=== PATIENT | male | born 1955 | race Caucasian/White ===

== ENCOUNTER → 2018-08-08 18:59 | Outpatient (CLI) | payer MEDICAID, SELFPAY ==
[2018-08-08 19:28] LABS: Basophils # 0.1 K/mm3 (0-0.2); Basophils % 0.6 % (0.1-2.0); Eosinophils # 0.8 K/mm3 (0.0-0.4); Eosinophils % 10.3 % (0.1-12.0); Hematocrit 49.8 % (42.0-52.0); Hemoglobin 15.7 g/dL (14.1-18.0); Lymphocytes # 1.9 K/mm3 (0.7-4.5); Lymphocytes % 23.5 % (10-50); Mean Corpuscular HGB Conc 31.7 g/dL (31.8-35.4); Mean Corpuscular Hemoglobin 29.7 pg (27.0-31.2); Mean Corpuscular Volume 93.8 fl (80-94); Mean Platelet Volume 7.9 fl (7.4-10.4); Monocytes # 0.5 K/mm3 (0.1-1.0); Monocytes % 5.7 % (1.7-9.3); Neutrophils # 4.8 K/mm3 (1.8-7.8); Neutrophils % 59.9 % (37.0-80.0); Platelet Count 374 K/mm3 (142-424); Red Cell Distribution Width 12.6 % (11.5-17.5); White Blood Count 8.1 K/mm3 (4.8-10.8)
[2018-08-08 20:03] LABS: Alanine Aminotransferase 33 U/L (12-78); Albumin Level 4.2 gm/dL (3.4-5.0); Albumin/Globulin Ratio 1.4 (1.1-1.8); Alkaline Phosphatase 89 U/L (46-116); Anion Gap 12.4 mEq/L (5-15); Aspartate Amino Transferase 14 U/L (15-37); Bilirubin,Total 0.3 mg/dL (0.2-1.0); Blood Urea Nitrogen 9 mg/dL (7-18); Calcium 9.5 mg/dL (8.5-10.1); Carbon Dioxide 30 mmol/L (21.0-32.0); Chloride 104 mmol/L (98-107); Chol/HDL Ratio 2.7 (1-3.5); Cholesterol 130 mg/dL (140-200); Estimated Glomerular Filt Rate 75 ml/min (>60); GFR (African American) 91 ML/MIN (>60); Glucose 104 mg/dL (74-106); HDL Cholesterol 48 mg/dL (27-67); LDL Cholesterol 67 mg/dL (0-130); Potassium 4.4 mmoL/L (3.5-5.1); Sodium 142 mmol/L (136-145); T4 (Thyroxine) 7.4 ug/dl (4.7-13.3); Total Protein,Serum 7.2 gm/dL (6.4-8.2); Triglycerides 74 mg/dL (30-200); VLDL Cholesterol 15 mg/dL (0-40)
[2018-08-10 10:56] LABS: Vitamin D 25 Hydroxy 23.8 ng/mL (30.0-100.0)
[2018-08-10 10:57] LABS: PSA, Free 0.67 ng/mL; Prostate Specific Ag 3.5 ng/mL (0.0-4.0)
== END ==
PROVIDERS: Visit Provider Physician Assistant
DX: R13.10 Dysphagia, unspecified (principal); Z76.89 Persons encountering health services in other specified circumstances; E55.9 Vitamin D deficiency, unspecified
CPT/HCPCS: 80053; 80061; 82652; 84153; 84154; 84436; 84443; 85025

== ENCOUNTER → 2018-08-17 08:30 | Outpatient (CLI) | payer MEDICAID, SELFPAY ==
--- NOTE | 2018-08-17 08:34 | FL_ITS ---
FL upper GI esophagus w/air HISTORY: Dysphagia ITS.REASON: upper GI/ barium swallow ORDERING PHYSICIAN: Nico Medina MD PATIENT AGE: 63 years Comparison: None FINDINGS: Prominent anterior osteophyte at C4-C5 causing indentation upon the posterior aspect of the esophagus at the level which could result in dysphagia. No evidence of hiatal hernia. The stomach, and duodenum have an unremarkable appearance. There is no evidence of hiatal hernia. No ulcer or mass evident. No mucosal abnormalities apparent. There is normal peristalsis. The duodenal C-loop is nondisplaced. FLUOROSCOPY TIME : 1 minute and 58 seconds. IMPRESSION: 1. Prominent anterior osteophytes at C4-C5 causing some indentation on the posterior aspect of the esophagus. 2. Otherwise negative upper GI
== END ==
PROVIDERS: PCP Physician Assistant; Visit Provider Surgery
DX: R13.10 Dysphagia, unspecified (principal)
CPT/HCPCS: 74241

== ENCOUNTER 2018-10-24 09:16 | Observation (INO) ==
--- NOTE | 2018-10-24 09:37 | Emergency Department Note ---
ED Disposition Clinical Impression: Schatzki's ring, Gastric polyp, Hiatal hernia, Insomnia, Tobacco use disorder, Acute cholecystitis, RUQ pain Disposition: Still a Patient Condition on Discharge: Fair Referrals: Josselin Newberry PA [Primary Care Provider] - - Critical Care Critical Care Time: No Attestation: On , the high probability of a clinically significant, sudden or life threatening deterioration of the following system(s) required my full and direct attention, intervention and personal management. The time I documented below is in addition to time spent performing reported procedures but includes the following listed in this critical care notation. Medical Decision Making - Medical Records Medical records reviewed: Yes: I reviewed the patient's medical records. - Khari Inquiry Pt receiving controlled substance: No Khari was queried for this patient: No Vital Signs: 10/24/18 09:16 10/24/18 10:14 10/24/18 11:00 Temperature 97.8 F Temperature Source Oral Pulse Rate [Right Radial] 72 74 73 Respiratory Rate 24 20 Blood Pressure [Right Arm] 163/83 H 163/110 H Blood Pressure Mean [Right Arm] 109 127 Blood Pressure Source [Right Arm] Automatic Cuff Automatic Cuff Blood Pressure Position [Right Arm] Sitting Supine 02 Sat by Pulse Oximetry 100 96 97 Oxygen Delivery Method Room Air Room Air Room Air 10/24/18 11:42 Temperature Temperature Source Pulse Rate [Right Radial] 81 Respiratory Rate Blood Pressure [Right Arm] 159/96 H Blood Pressure Mean [Right Arm] 117 Blood Pressure Source [Right Arm] Automatic Cuff Blood Pressure Position [Right Arm] 02 Sat by Pulse Oximetry 98 Oxygen Delivery Method Room Air - Lab Data Lab Results 10/24/18 09:25: Sodium 139, Potassium 3.4 L, Chloride 101, Carbon Dioxide 29, Anion Gap 12.4, BUN 13, Creatinine 1.15, Estimated Creat Clear 73, Estimated GFR 64, Est GFR ( Amer) 77, Glucose 190 H, Calcium 9.2, Total Bilirubin 0.5, AST 19, ALT 47, Alkaline Phosphatase 115, Total Creatine Kinase 73, CK-MB (CK-2) 1.2, CK-MB (CK-2) Rel Index 1.6, Troponin I < 0.02, Total Protein 7.4, Albumin 4.1, Globulin 3.3 H, Albumin/Globulin Ratio 1.2, Amylase 57, Lipase 148 10/24/18 09:25: WBC 13.9 H, RBC 4.93, Hgb 14.7, Hct 45.8, MCV 92.8, MCH 29.8, MCHC 32.2, RDW 12.3, Plt Count 307, MPV 7.0 L, Neut % (Auto) 84.9 H, Lymph % (Auto) 9.6 L, [place] % (Auto) 3.7, Eos % (Auto) 1.6, Baso % (Auto) 0.3, Neut # (Auto) 11.8 H, Lymph # (Auto) 1.3, [place] # (Auto) 0.5, Eos # (Auto) 0.2, Baso # (Auto) 0.0 10/24/18 10:15: Lactate 3.1 H Result diagrams: 10/24/18 09:25 10/24/18 09:25 Orders (Tests/Meds): ED MEDICATIONS Discontinued Medications Generic Name Dose Route Start Last Admin Trade Name Freq PRN Reason Stop Dose Admin Diatrizoate Meglum/Diatrizoate Sod 30 ml 10/24/18 09:29 10/24/18 09:51 Gastrografin 66%-10% 30ml PO 10/24/18 09:30 30 ml ONCE ONE Administration Famotidine 20 mg 10/24/18 09:29 10/24/18 09:38 Pepcid 20mg/2ml Vial IV 10/24/18 09:30 20 mg ONCE ONE Administration Ertapenem 1 gm/ Sodium 50 mls @ 100 mls/hr 10/24/18 11:25 10/24/18 11:34 Chloride IV 10/24/18 11:26 100 mls/hr ONCE ONE Administration Protocol Ketorolac Tromethamine 30 mg 10/24/18 09:30 10/24/18 09:38 Toradol 30mg/Ml Vial IV 10/24/18 09:31 30 mg ONCE ONE Administration Ondansetron HCl 4 mg 10/24/18 09:30 10/24/18 09:39 Zofran 4mg/2ml Vial IV 10/24/18 09:31 4 mg ONCE ONE Administration Potassium Chloride 40 meq 10/24/18 10:43 10/24/18 11:01 Klor-Con 20meq Tablet PO 10/24/18 10:44 40 meq ONCE ONE Administration ORDERS Category Date Time Status Drug Screen,Urine Stat Lab 10/24/18 09:27 Ordered Urinalysis and Microscopic Stat Lab 10/24/18 09:27 Ordered Blood Culture Stat Micro 10/24/18 10:15 Received - Radiology Data #1 Image(s): Chest Image Reviewed: Yes I reviewed the patient's radiology image Preliminary Findings: Normal/NAD - CT Data CT Scan: Abdomen, Pelvis Time Received: 11:[address] Reviewed: Yes: I have viewed the radiologist's interpretation Preliminary Findings: Abnormal Findings Narrative: IMPRESSION: 1. Suspect gallbladder sludge with possible cholelithiasis. Gas density noted in the fundus of the gallbladder suspicious for gas within a gallstone. Consider ultrasound for confirmation. 2. Colonic diverticulosis. No evidence of diverticulitis. - ECG Data Tracing #1 Normal sinus rhythm, baseline artifact with sagging of the ST segment in the inferior leads with T wave inversion. Fusion beats in the lateral leads no old EKG for comparison. ECG initial impression date: 10/24/18 ECG initial impression time: 09:20 Medical Decision Narrative: IMPRESSION: 1. Suspect gallbladder sludge with possible cholelithiasis. Gas density noted in the fundus of the gallbladder suspicious for gas within a gallstone. Consider ultrasound for confirmation. 2. Colonic diverticulosis. No evidence of diverticulitis. She did have elevated white count of [address] scan of the gallbladder sludge and possible Kelly lithiasis. I spoke with Dr. Merritt who agreed to see the patient in inpatient consultation. I spoke with Dr. Yanes who agreed to admit the patient for IV fluids IV antibiotics and supportive care. The patient was agreeable for admission. Abdominal Pain HPI - General Chief Complaint: Chest Pain Stated Complaint: chest pain Time Seen by Provider: 10/24/18 09:17 Mode of Arrival: Family Vehicle Limitations: No Limitations Description of Symptoms (Recalled from ER Triage Doc. by RN): pt c/o left lower chest pain that started around 0600 this morning. pt states the pain feels like bloating and is a 7/10. pt states he took 2 lortabs for the pain but no relief. - History of Present Illness HPI narrative: 63 years old male with history of esophageal ring that requires dilatation, tobacco addiction, asthma, insomnia and depression. Today at 6 AM the patient developed right upper quadrant sharp pain associated with nausea, he attempted to drink some soda but he vomited twice on the way to the hospital. The pain is sharp in character rated 6/10 no precipitating or relieving factor. He attempted to use Lortab from prior prescriptions with no relief. He denies having chest pain, shortness of breath, or palpitations. He denies having hemoptysis hematemesis coffee-ground emesis melanotic stool or bleeding per rectum. He denies having flank pain dysuria hematuria or frequency. The findings of his most recent EGD 09/06/2018: Findings:: Gastroesophageal junction at 42 cm Mild stricture/early Schatzki ring at gastroesophageal junction Small sliding hiatal hernia Patchy gastritis Gastric body polyp complaint: abdominal pain Onset (ago): hour(s) (3 hours.) Consistency: constant Location: RUQ Severity: moderate Severity scale (1-10): 6 Quality: stabbing, sharp Radiation: epigastric Relieving factors: nothing Exacerbating factors: eating Associated symptoms: nausea, vomiting Treatments prior to arrival: prescription analgesics - Related Data Home Medications Medication Instructions Recorded Confirmed doxepin 100 mg capsule 300 mg PO QHS cap 08/08/18 10/24/18 Fluticasone/Vilanterol [Breo 1 inh INHALATION DAILY 09/05/18 10/24/18 Ellipta] esomeprazole magnesium 40 mg 40 mg PO DAILY 09/17/18 10/24/18 capsule,delayed release ranitidine 75 mg tablet 75 mg PO BID PRN 09/17/18 10/24/18 Previous Rx's Medication Instructions Recorded albuterol sulfate HFA 90 2 puff INHALATION Q6H PRN #18 g 08/08/18 mcg/actuation aerosol inhaler Allergies Allergy/AdvReac Type Severity Reaction Status Date / Time No Known Allergies Allergy Verified 10/24/18 09:29 [facility] History - Hepatitis A Screen Drug use history?: No High risk sexual behaviors?: No History of sexually transmitted infection?: No Currently employed?: No Childcare worker?: No Do you have indoor plumbing?: Yes Do you have electricity?: Yes Attestation statement:: This patient has been screened for Hepatitis A risk factors. I have reviewed the patient's past medical history: Yes Medical History: Reports:: Asthma, Depression, Lung Disease Denies:: Cancer, Chronic Obstructive Pulmonary Disease (COPD), Diabetes Mellitus Type 1, Diabetes Mellitus Type 2, Hypertension, Internal Pacemaker, MRSA, Seizures Other Surgeries: Yes: No Previous Surgery, Colonoscopy. No: Pacemaker Amputation: No Fractures: No - Social History Smoking Status: Current every day smoker Tobacco Type: cigarettes # Packs/Day (cigarettes): 1 Alcohol Intake: never Alcohol Intake Frequency:: holidays/special occasions only Substance Use Type: denies use Occupational Status: retired - Psychiatric History Expresses thoughts of harming self/others: None Suicide Plan Description: No Plan Pschychiatric History:: Reports:: Depression Family Hx:: Asthma ROS Obtained: Yes All systems reviewed & no additional complaints Physical Exam - General General appearance: alert, in no apparent distress - Head Head exam: atraumatic, normocephalic, normal inspection - Eye Eye exam: Present: normal appearance, PERRL, EOMI. Absent: scleral icterus, nystagmus - ENT ENT exam: Present: normal exam, normal oropharynx, mucous membranes moist, TM's normal bilaterally, normal external ear exam - Neck Neck exam: Present: normal inspection, full ROM, trachea midline. Absent: meningismus, lymphadenopathy - Chest Chest inspection: Present: normal inspection, symmetric chest wall rise. Absent: tenderness - Respiratory Respiratory exam: Present: normal lung sounds bilaterally. Absent: respiratory distress, wheezes - Cardiovascular Cardiovascular exam: Present: regular rate, normal rhythm. Absent: JVD - Abdominal Exam Abdominal exam: Present: soft, normal bowel sounds. Absent: distention, tenderness, guarding, rebound, rigidity, Garrido's sign, tenderness at McBurney's Point - exam: Present: normal inspection, normal testicular lie, circumcised. Absent: testicular tenderness, urethral discharge, scrotal swelling - Extremities Exam Extremities exam: Present: normal inspection, full ROM, normal capillary refill. Absent: calf tenderness - Back Exam Back exam: Present: normal inspection. Absent: tenderness, CVA tenderness (R), CVA tenderness (L), paraspinal tenderness, vertebral tenderness - Neurological Exam Neurological exam: Present: alert, oriented X3, CN II-XII intact, motor sensory deficit, reflexes normal - Psychiatric Psychiatric exam: Present: normal affect, normal mood - Skin Skin exam: Present: warm, dry, intact, normal color - Lymphatic Lymphatic Findings: no adenopathy
[2018-10-24 10:11] LABS: Alanine Aminotransferase 47 U/L (12-78); Albumin Level 4.1 gm/dL (3.4-5.0); Albumin/Globulin Ratio 1.2 (1.1-1.8); Alkaline Phosphatase 115 U/L (46-116); Amylase 57 U/L (25-115); Anion Gap 12.4 mEq/L (5-15); Aspartate Amino Transferase 19 U/L (15-37); Bilirubin,Total 0.5 mg/dL (0.2-1.0); Blood Urea Nitrogen 13 mg/dL (7-18); Calcium 9.2 mg/dL (8.5-10.1); Carbon Dioxide 29 mmol/L (21.0-32.0); Chloride 101 mmol/L (98-107); Creatine Kinase 73 U/L (39-308); Globulin 3.3 gm/dl (1.3-3.2); Glucose 190 mg/dL (74-106); Lipase 148 u/L (73-393); Potassium 3.4 mmoL/L (3.5-5.1); Sodium 139 mmol/L (136-145); Total Protein,Serum 7.4 gm/dL (6.4-8.2)
[2018-10-24 10:44] LABS: Basophils % 0.3 % (0.1-2.0); Eosinophils # 0.2 K/mm3 (0.0-0.4); Eosinophils % 1.6 % (0.1-12.0); Hematocrit 45.8 % (42.0-52.0); Hemoglobin 14.7 g/dL (14.1-18.0); Lymphocytes # 1.3 K/mm3 (0.7-4.5); Lymphocytes % 9.6 % (10-50); Mean Corpuscular HGB Conc 32.2 g/dL (31.8-35.4); Mean Corpuscular Hemoglobin 29.8 pg (27.0-31.2); Mean Corpuscular Volume 92.8 fl (80-94); Monocytes # 0.5 K/mm3 (0.1-1.0); Monocytes % 3.7 % (1.7-9.3); Neutrophils # 11.8 K/mm3 (1.8-7.8); Neutrophils % 84.9 % (37.0-80.0); Platelet Count 307 K/mm3 (142-424); Red Blood Count 4.93 M/mm3 (4.60-6.20); Red Cell Distribution Width 12.3 % (11.5-17.5); White Blood Count 13.9 K/mm3 (4.8-10.8)
[2018-10-24 13:06] LABS: Microscopic, Urine URINE MICROSCOPIC (MICROSCOPIC)
[2018-10-24 13:07] LABS: Appearance,Urine CLEAR (Clear); Bilirubin,Urine Negative (Negative); Blood, Urine TRACE-I (Negative); Color,Urine YELLOW (Yellow); Glucose,Urine (UA) Negative (Negative); Ketones,Urine Negative (Negative); Leukocyte Esterase,Urine Negative (Negative); PH,Urine 6.5 (5.0-8.5); Protein,Urine TRACE (Negative); Specific Gravity, Urine <= 1.005 (1.005-1.030); Urobilinogen,Urine 0.2 EU/dl (0.2)
[2018-10-24 13:32] LABS: Bacteria,Urine Trace /lpf; Squamous Epithelial Cell,Urine Occasional #/hpf (0-5); WBC,Urine Occasional #/hpf (0-3)
--- NOTE | 2018-10-24 15:06 | Consult Report ---
*Admission Date: 10/24/18 *Chief complaint: Right upper quadrant pain *History of present illness: This is a 63-year-old gentleman who presented to the emergency department earlier today with right upper quadrant abdominal pain. NOTE: He does have a history of Schatzki ring and Helicobacter pylori. He has been treated for Helicobacter pylori within the last month. Discussions regarding possible need for dilatation of Schatzki ring are ongoing. He continues medical therapy for reflux. See forwarded copy of HPI from emergency department evaluation below: 63 years old male with history of esophageal ring that requires dilatation, tobacco addiction, asthma, insomnia and depression. Today at 6 AM the patient developed right upper quadrant sharp pain associated with nausea, he attempted to drink some soda but he vomited twice on the way to the hospital. The pain is sharp in character rated 6/10 no precipitating or relieving factor. He attempted to use Lortab from prior prescriptions with no relief. He denies having chest pain, shortness of breath, or palpitations. He denies having hemop tysis hematemesis coffee-ground emesis melanotic stool or bleeding per rectum. He denies having flank pain dysuria hematuria or frequency. Review of Systems - Constitutional Denies chills - Eyes Denies change in vision - ENT Denies change in voice - *Cardiovascular Denies chest pain - *Respiratory Denies cough - *Gastrointestinal Reports abdominal pain, Reports nausea, Denies bright, red blood in stools, Denies black, tarry stools - *Genitourinary Denies difficulty urinating - *Musculoskeletal Denies abnormal walking - Integumentary/Breasts Denies bleeding lesions - *Neurologic Denies abnormal movements - Psychiatric Reports depression, Denies anxiety - Endocrine Denies cold intolerance - Hematologic/Lymphatic Denies easy bleeding H History Medical History: Reports:: Asthma, Depression, Lung Disease Denies:: Cancer, Chronic Obstructive Pulmonary Disease (COPD), Diabetes Mellitus Type 1, Diabetes Mellitus Type 2, Hypertension, Internal Pacemaker, MRSA, Seizures Other Surgeries: Yes: No Previous Surgery, Colonoscopy. No: Pacemaker Amputation: No Fractures: No - *Social History Smoking Status: Current every day smoker Tobacco Type: cigarettes # Packs/Day (cigarettes): 1 Alcohol Intake: never Alcohol Intake Frequency:: holidays/special occasions only Substance Use Type: denies use *Occupational Status:: retired *Travel in the last 8 weeks: None - Psychiatric History Expresses thoughts of harming self/others: None Suicide Plan Description: No Plan Pschychiatric History:: Reports:: Depression Family Hx:: Asthma Meds Home Medications Medication Instructions Recorded Confirmed Type albuterol sulfate HFA 90 2 puff INHALATION Q6H PRN #18 g 08/08/18 10/24/18 Rx mcg/actuation aerosol inhaler doxepin 100 mg capsule 300 mg PO QHS cap 08/08/18 10/24/18 History Fluticasone/Vilanterol [Breo 1 inh INHALATION DAILY 09/05/18 10/24/18 History Ellipta] esomeprazole magnesium 40 mg 40 mg PO DAILY 09/17/18 10/24/18 History capsule,delayed release ranitidine 75 mg tablet 75 mg PO BID PRN 09/17/18 10/24/18 History Allergies Allergy/AdvReac Type Severity Reaction Status Date / Time No Known Allergies Allergy Verified 10/24/18 09:29 Exam Vital signs and Labs for Last 24 Hours: Temp Pulse Resp BP Pulse Ox 98.9 F 91 H 20 152/48 H 97 10/24/18 12:45 10/24/18 12:45 10/24/18 12:45 10/24/18 12:45 10/24/18 12:18 Laboratory Results - last 24 hr 10/24/18 09:25: Sodium 139, Potassium 3.4 L, Chloride 101, Carbon Dioxide 29, Anion Gap 12.4, BUN 13, Creatinine 1.15, Estimated Creat Clear 73, Estimated GFR 64, Est GFR ( Amer) 77, Glucose 190 H, Calcium 9.2, Total Bilirubin 0.5, AST 19, ALT 47, Alkaline Phosphatase 115, Total Creatine Kinase 73, CK-MB (CK-2) 1.2, CK-MB (CK-2) Rel Index 1.6, Troponin I < 0.02, Total Protein 7.4, Albumin 4.1, Globulin 3.3 H, Albumin/Globulin Ratio 1.2, Amylase 57, Lipase 148 10/24/18 09:25: WBC 13.9 H, RBC 4.93, Hgb 14.7, Hct 45.8, MCV 92.8, MCH 29.8, MCHC 32.2, RDW 12.3, Plt Count 307, MPV 7.0 L, Neut % (Auto) 84.9 H, Lymph % (Auto) 9.6 L, [place] % (Auto) 3.7, Eos % (Auto) 1.6, Baso % (Auto) 0.3, Neut # (Auto) 11.8 H, Lymph # (Auto) 1.3, [place] # (Auto) 0.5, Eos # (Auto) 0.2, Baso # (Auto) 0.0 10/24/18 10:15: Lactate 3.1 H 10/24/18 12:50: Urine Color Yellow, Urine Appearance Clear, Urine pH 6.5, Ur Specific [place] <= 1.005, Urine Protein Trace, Urine Glucose (UA) Negative, Urine Ketones Negative, Urine Blood Trace-i, Urine Nitrate Negative, Urine Bilirubin Negative, Urine Urobilinogen 0.2, Ur Leukocyte Esterase Negative, Urine RBC 3-5, Urine WBC Occasional, Ur Squamous Epith Cells Occasional, Urine Bacteria Trace I & O for Last 24 hours: Intake & Output 10/22/18 10/23/18 10/24/18 10/25/18 11:59 11:59 11:59 11:59 Intake Total 50 / 50 Balance 50 / 50 Weight 175 lb 171 lb 7 oz Radiology Reports for the Last 24 Hours: CT A/P: MPRESSION: 1. Suspect gallbladder sludge with possible cholelithiasis. Gas density noted in the fundus of the gallbladder suspicious for gas within a gallstone. Consider ultrasound for confirmation. 2. Colonic diverticulosis. No evidence of diverticulitis. - Constitutional no acute distress - *Routine Respiratory Exam Absent: respiratory distress - *Routine Cardiovascular Exam Present: RRR - *Routine Abdominal Exam Present: soft, tenderness Comments: mostly in RUQ and epigastric region Results - Labs 10/24/18 09:25 10/24/18 09:25 Laboratory Results - last 24 hr 10/24/18 09:25: Sodium 139, Potassium 3.4 L, Chloride 101, Carbon Dioxide 29, Anion Gap 12.4, BUN 13, Creatinine 1.15, Estimated Creat Clear 73, Estimated GFR 64, Est GFR ( Amer) 77, Glucose 190 H, Calcium 9.2, Total Bilirubin 0.5, AST 19, ALT 47, Alkaline Phosphatase 115, Total Creatine Kinase 73, CK-MB (CK-2) 1.2, CK-MB (CK-2) Rel Index 1.6, Troponin I < 0.02, Total Protein 7.4, Albumin 4.1, Globulin 3.3 H, Albumin/Globulin Ratio 1.2, Amylase 57, Lipase 148 10/24/18 09:25: WBC 13.9 H, RBC 4.93, Hgb 14.7, Hct 45.8, MCV 92.8, MCH 29.8, MCHC 32.2, RDW 12.3, Plt Count 307, MPV 7.0 L, Neut % (Auto) 84.9 H, Lymph % (Auto) 9.6 L, [place] % (Auto) 3.7, Eos % (Auto) 1.6, Baso % (Auto) 0.3, Neut # (Auto) 11.8 H, Lymph # (Auto) 1.3, [place] # (Auto) 0.5, Eos # (Auto) 0.2, Baso # (Auto) 0.0 10/24/18 10:15: Lactate 3.1 H 10/24/18 12:50: Urine Color Yellow, Urine Appearance Clear, Urine pH 6.5, Ur Specific [place] <= 1.005, Urine Protein Trace, Urine Glucose (UA) Negative, Urine Ketones Negative, Urine Blood Trace-i, Urine Nitrate Negative, Urine Bilirubin Negative, Urine Urobilinogen 0.2, Ur Leukocyte Esterase Negative, Urine RBC 3-5, Urine WBC Occasional, Ur Squamous Epith Cells Occasional, Urine Bacteria Trace - Imaging CT scan - abdomen: report reviewed, image reviewed CT scan - pelvis: report reviewed, image reviewed Assessment and Plan (1) Acute cholecystitis Current visit: Yes Status: Acute Category: Medical Code(s): K81.0 - Acute cholecystitis IV abx Serial exams Likely cholecystectomy tomorrow
--- NOTE | 2018-10-24 21:26 | History & Physical Report ---
*Admission Date: 10/24/18 *Chief complaint: abd pain *History of present illness: this wm presented to the ed -3 years old male with history of esophageal ring that requires dilatation, tobacco addiction, asthma, insomnia and depression. Today at 6 AM the patient developed right upper quadrant sharp pain associated with nausea, he attempted to drink some soda but he vomited twice on the way to the hospital. The pain is sharp in character rated 6/10 no precipitating or relieving factor. He attempted to use Lortab from prior prescriptions with no relief. He denies having chest pain, shortness of breath, or palpitations. He denies having hemoptysis hematemesis coffee-ground emesis melanotic stool or bleeding per rectum. He denies having flank pain dysuria hematuria or frequency. [facility] History I have reviewed the patient's past medical history: Yes Medical History: Reports:: Asthma, Depression, Lung Disease Denies:: Cancer, Chronic Obstructive Pulmonary Disease (COPD), Diabetes Mellitus Type 1, Diabetes Mellitus Type 2, Hypertension, Internal Pacemaker, MRSA, Seizures *Have you ever received a pneumonia vaccine?: No *Have you received a flu vaccine this season?: No Other Surgeries: Yes: No Previous Surgery, Colonoscopy. No: Pacemaker Amputation: No Fractures: No - *Social History Educational Level: Completed High School Smoking Status: Current some day smoker Tobacco Type: cigarettes # Packs/Day (cigarettes): 1 Alcohol Intake: current Alcohol Intake Frequency:: a few times a week Substance Use Type: denies use *Occupational Status:: retired Housing: house *Travel in the last 8 weeks: None - Psychiatric History Expresses thoughts of harming self/others: None Suicide Plan Description: No Plan Pschychiatric History:: Reports:: Depression Family Hx:: Asthma Review of Systems - Review of Systems Review of systems:: pertinent systems reviewed and negative unless documented below - Constitutional Denies fever(s) - Eyes Denies change in vision - ENT Denies sore throat - *Cardiovascular Denies chest pain at rest - *Respiratory Denies cough - *Gastrointestinal Reports abdominal pain, Reports nausea, Reports vomiting - *Genitourinary Denies blood in urine - *Musculoskeletal Denies joint pain - Integumentary/Breasts Denies rash - *Neurologic Denies abnormal walking, Denies abnormal movements - Psychiatric Denies anxiety Meds Home Medications Medication Instructions Recorded Confirmed Type albuterol sulfate HFA 90 2 puff INHALATION Q6H PRN #18 g 08/08/18 10/24/18 Rx mcg/actuation aerosol inhaler doxepin 100 mg capsule 300 mg PO QHS cap 08/08/18 10/24/18 History Fluticasone/Vilanterol [Breo 1 inh INHALATION DAILY 09/05/18 10/24/18 History Ellipta] esomeprazole magnesium 40 mg 40 mg PO DAILY 09/17/18 10/24/18 History capsule,delayed release ranitidine 75 mg tablet 75 mg PO BID PRN 09/17/18 10/24/18 History Allergies Allergy/AdvReac Type Severity Reaction Status Date / Time No Known Allergies Allergy Verified 10/24/18 09:29 Exam Vital signs and Labs for Last 24 Hours: Temp Pulse Resp BP Pulse Ox 98.8 F 91 H 17 134/80 97 10/24/18 20:00 10/24/18 20:00 10/24/18 20:00 10/24/18 20:00 10/24/18 20:00 Laboratory Results - last 24 hr 10/24/18 09:25: Sodium 139, Potassium 3.4 L, Chloride 101, Carbon Dioxide 29, Anion Gap 12.4, BUN 13, Creatinine 1.15, Estimated Creat Clear 73, Estimated GFR 64, Est GFR ( Amer) 77, Glucose 190 H, Calcium 9.2, Total Bilirubin 0.5, AST 19, ALT 47, Alkaline Phosphatase 115, Total Creatine Kinase 73, CK-MB (CK-2) 1.2, CK-MB (CK-2) Rel Index 1.6, Troponin I < 0.02, Total Protein 7.4, Albumin 4.1, Globulin 3.3 H, Albumin/Globulin Ratio 1.2, Amylase 57, Lipase 148 10/24/18 09:25: WBC 13.9 H, RBC 4.93, Hgb 14.7, Hct 45.8, MCV 92.8, MCH 29.8, MCHC 32.2, RDW 12.3, Plt Count 307, MPV 7.0 L, Neut % (Auto) 84.9 H, Lymph % (Auto) 9.6 L, [place] % (Auto) 3.7, Eos % (Auto) 1.6, Baso % (Auto) 0.3, Neut # (Auto) 11.8 H, Lymph # (Auto) 1.3, [place] # (Auto) 0.5, Eos # (Auto) 0.2, Baso # (Auto) 0.0 10/24/18 10:15: Lactate 3.1 H 10/24/18 12:50: Urine Color Yellow, Urine Appearance Clear, Urine pH 6.5, Ur Specific [place] <= 1.005, Urine Protein Trace, Urine Glucose (UA) Negative, Urine Ketones Negative, Urine Blood Trace-i, Urine Nitrate Negative, Urine Bilirubin Negative, Urine Urobilinogen 0.2, Ur Leukocyte Esterase Negative, Urine RBC 3-5, Urine WBC Occasional, Ur Squamous Epith Cells Occasional, Urine Bacteria Trace 10/24/18 14:52: Lactate 1.8 10/24/18 15:06: Troponin I < 0.02 I & O for Last 24 hours: Intake & Output 10/22/18 10/23/18 10/24/18 10/25/18 11:59 11:59 11:59 11:59 Intake Total 760 / 760 Balance 760 / 760 Weight 175 lb 171 lb 7 oz - Constitutional no acute distress - *Routine HEENT Exam Head: Present: normocephalic Eye: Present: EOMI, PERRL. Absent: conjunctival icterus ENT: Present: mucous membranes dry - *Routine Neck Exam Present: supple. Absent: JVD - *Routine Respiratory Exam Present: CTA bilaterally - *Routine Cardiovascular Exam Present: RRR, murmur - *Routine Abdominal Exam Present: soft, tenderness - *Routine Extremities Exam Absent: edema - *Routine Skin Exam Present: intact - *Routine Neurological Exam Present: alert, oriented X3, CN II-XII intact - Routine Psychiatric Exam Present: normal affect Assessment and Plan (1) Acute cholecystitis Current visit: Yes Status: Acute Category: Medical Code(s): K81.0 - Acute cholecystitis (2) Tobacco use disorder Current visit: Yes Status: Acute Category: Medical Code(s): F17.200 - Nicotine dependence, unspecified, uncomplicated (3) COPD (chronic obstructive pulmonary disease) Current visit: Yes Status: Acute Category: Medical Code(s): J44.9 - Chronic obstructive pulmonary disease, unspecified
--- NOTE | 2018-10-25 06:46 | Progress Note ---
Subjective Patient reports: no new complaints (pain/soreness with movement (mostly RUQ and epigastrum)) Exam Vital signs and Labs for Last 24 Hours: Temp Pulse Resp BP Pulse Ox 97.9 F 90 16 116/72 96 10/25/18 04:00 10/25/18 04:00 10/25/18 04:00 10/25/18 04:00 10/25/18 04:00 Laboratory Results - last 24 hr 10/24/18 09:25: Sodium 139, Potassium 3.4 L, Chloride 101, Carbon Dioxide 29, Anion Gap 12.4, BUN 13, Creatinine 1.15, Estimated Creat Clear 73, Estimated GFR 64, Est GFR ( Amer) 77, Glucose 190 H, Calcium 9.2, Total Bilirubin 0.5, AST 19, ALT 47, Alkaline Phosphatase 115, Total Creatine Kinase 73, CK-MB (CK-2) 1.2, CK-MB (CK-2) Rel Index 1.6, Troponin I < 0.02, Total Protein 7.4, Albumin 4.1, Globulin 3.3 H, Albumin/Globulin Ratio 1.2, Amylase 57, Lipase 148 10/24/18 09:25: WBC 13.9 H, RBC 4.93, Hgb 14.7, Hct 45.8, MCV 92.8, MCH 29.8, MCHC 32.2, RDW 12.3, Plt Count 307, MPV 7.0 L, Neut % (Auto) 84.9 H, Lymph % (Auto) 9.6 L, [place] % (Auto) 3.7, Eos % (Auto) 1.6, Baso % (Auto) 0.3, Neut # (Auto) 11.8 H, Lymph # (Auto) 1.3, [place] # (Auto) 0.5, Eos # (Auto) 0.2, Baso # (Auto) 0.0 10/24/18 10:15: Lactate 3.1 H 10/24/18 12:50: Urine Color Yellow, Urine Appearance Clear, Urine pH 6.5, Ur Specific [place] <= 1.005, Urine Protein Trace, Urine Glucose (UA) Negative, Urine Ketones Negative, Urine Blood Trace-i, Urine Nitrate Negative, Urine Bilirubin Negative, Urine Urobilinogen 0.2, Ur Leukocyte Esterase Negative, Urine RBC 3-5, Urine WBC Occasional, Ur Squamous Epith Cells Occasional, Urine Bacteria Trace 10/24/18 14:52: Lactate 1.8 10/24/18 15:06: Troponin I < 0.02 10/24/18 21:07: Troponin I < 0.02 I & O for Last 24 hours: Intake & Output 10/22/18 10/23/18 10/24/18 10/25/18 11:59 11:59 11:59 11:59 Intake Total 860 / 860 Balance 860 / 860 Weight 175 lb 171 lb 7 oz - Constitutional no acute distress - *Routine Respiratory Exam Absent: respiratory distress - *Routine Cardiovascular Exam Present: RRR - *Routine Abdominal Exam Present: soft, tenderness Comments: essentially unchanged Progress Note: A&P (1) Acute cholecystitis Status: Acute Assessment and plan: continue abx as per PCP clear liquids for breakfast (NPO afterwards) cholecystectomy later today Current Visit: Yes
--- NOTE | 2018-10-25 07:35 | Consult Report ---
History of Present Illness Consult date: 10/25/18 Requesting physician: Mitchell Yanes Consult reason: pre-op evaluation Chief complaint: Abd/chest pain Additional Medical History:: 1. Tobacco use A. 2. FH of CAD 3. Situational depression related to 's 10 months ago. 10/2018. History of present illness: 63-year-old white male admitted with known Schatzki's ring for planned dilatation with complaints of right upper quadrant abdominal pain with evaluation revealing gallbladder sludge and gallstones. Cholecystectomy is planned for later today. Cardiology consulted for preop evaluation. Patient's pertinent cardiac risk factors are tobacco use and family history of coronary artery disease in his father at age 60. Patient denies hypertension, hyperlipidemia or diabetes. EKG is sinus and unremarkable. Troponins have returned normal. [facility] History Medical History: Reports:: Asthma, Depression, Lung Disease Denies:: Cancer, Chronic Obstructive Pulmonary Disease (COPD), Diabetes Mellitus Type 1, Diabetes Mellitus Type 2, Hypertension, Internal Pacemaker, MRSA, Seizures *Have you ever received a pneumonia vaccine?: No *Have you received a flu vaccine this season?: No Other Surgeries: Yes: No Previous Surgery, Colonoscopy. No: Pacemaker Amputation: No Fractures: No - *Social History Educational Level: Completed High School Smoking Status: Current some day smoker Tobacco Type: cigarettes # Packs/Day (cigarettes): 1 Alcohol Intake: current Alcohol Intake Frequency:: a few times a week Substance Use Type: denies use *Occupational Status:: retired Housing: house *Travel in the last 8 weeks: None - Psychiatric History Expresses thoughts of harming self/others: None Suicide Plan Description: No Plan Pschychiatric History:: Reports:: Depression Family Hx:: Asthma Meds Home Medications Medication Instructions Recorded Confirmed Type albuterol sulfate HFA 90 2 puff INHALATION Q6H PRN #18 g 08/08/18 10/24/18 Rx mcg/actuation aerosol inhaler doxepin 100 mg capsule 300 mg PO QHS cap 08/08/18 10/24/18 History Fluticasone/Vilanterol [Breo 1 inh INHALATION DAILY 09/05/18 10/24/18 History Ellipta] esomeprazole magnesium 40 mg 40 mg PO DAILY 09/17/18 10/24/18 History capsule,delayed release ranitidine 75 mg tablet 75 mg PO BID PRN 09/17/18 10/24/18 History Allergies Allergy/AdvReac Type Severity Reaction Status Date / Time No Known Allergies Allergy Verified 10/24/18 09:29 Review of Systems - *Cardiovascular Reports chest pain, Denies shortness of breath - *Respiratory Denies shortness of breath, Denies shortness of breath with activity - *Gastrointestinal Reports abdominal pain, Denies vomiting - *Genitourinary Denies blood in urine - *Musculoskeletal Reports joint pain - *Neurologic Denies abnormal walking, Denies abnormal movements Exam Vital signs and Labs for Last 24 Hours: Temp Pulse Resp BP Pulse Ox 97.9 F 90 16 116/72 96 10/25/18 04:00 10/25/18 04:00 10/25/18 04:00 10/25/18 04:00 10/25/18 04:00 Laboratory Results - last 24 hr 10/24/18 09:25: Sodium 139, Potassium 3.4 L, Chloride 101, Carbon Dioxide 29, Anion Gap 12.4, BUN 13, Creatinine 1.15, Estimated Creat Clear 73, Estimated GFR 64, Est GFR ( Amer) 77, Glucose 190 H, Calcium 9.2, Total Bilirubin 0.5, AST 19, ALT 47, Alkaline Phosphatase 115, Total Creatine Kinase 73, CK-MB (CK-2) 1.2, CK-MB (CK-2) Rel Index 1.6, Troponin I < 0.02, Total Protein 7.4, Albumin 4.1, Globulin 3.3 H, Albumin/Globulin Ratio 1.2, Amylase 57, Lipase 148 10/24/18 09:25: WBC 13.9 H, RBC 4.93, Hgb 14.7, Hct 45.8, MCV 92.8, MCH 29.8, MCHC 32.2, RDW 12.3, Plt Count 307, MPV 7.0 L, Neut % (Auto) 84.9 H, Lymph % (Auto) 9.6 L, [place] % (Auto) 3.7, Eos % (Auto) 1.6, Baso % (Auto) 0.3, Neut # (Auto) 11.8 H, Lymph # (Auto) 1.3, [place] # (Auto) 0.5, Eos # (Auto) 0.2, Baso # (Auto) 0.0 10/24/18 10:15: Lactate 3.1 H 10/24/18 12:50: Urine Color Yellow, Urine Appearance Clear, Urine pH 6.5, Ur Specific [place] <= 1.005, Urine Protein Trace, Urine Glucose (UA) Negative, Urine Ketones Negative, Urine Blood Trace-i, Urine Nitrate Negative, Urine Bilirubin Negative, Urine Urobilinogen 0.2, Ur Leukocyte Esterase Negative, Urine RBC 3-5, Urine WBC Occasional, Ur Squamous Epith Cells Occasional, Urine Bacteria Trace 10/24/18 14:52: Lactate 1.8 10/24/18 15:06: Troponin I < 0.02 10/24/18 21:07: Troponin I < 0.02 I & O for Last 24 hours: Intake & Output 10/22/18 10/23/18 10/24/18 10/25/18 11:59 11:59 11:59 11:59 Intake Total 860 / 860 Balance 860 / 860 Weight 175 lb 171 lb 7 oz - *Routine HEENT Exam Head: Present: normocephalic Eye: Present: EOMI, PERRL ENT: Present: mucous membranes moist - *Routine Neck Exam Present: supple. Absent: JVD, carotid bruit - *Routine Respiratory Exam Present: CTA bilaterally. Absent: accessory muscle use, rales, rhonchi, wheezes - *Routine Cardiovascular Exam Present: RRR. Absent: murmur, gallop, rubs - *Routine Abdominal Exam Present: soft. Absent: tenderness, distended, guarding - *Routine Extremities Exam Absent: edema, calf tenderness - *Routine Neurological Exam Present: alert, oriented X3, moving all extremities Assessment and Plan (1) Acute cholecystitis Current visit: Yes Status: Acute Category: Medical Code(s): K81.0 - Acute cholecystitis (2) Tobacco use disorder Current visit: Yes Status: Acute Category: Medical Code(s): F17.200 - Nicotine dependence, unspecified, uncomplicated (3) COPD (chronic obstructive pulmonary disease) Current visit: Yes Status: Acute Category: Medical Code(s): J44.9 - Chronic obstructive pulmonary disease, unspecified - Assessment and plan all Dx Assessment and Plan for all problems:: 1. Echo shows normal LV size and function with mild mitral and tricuspid regurgitation. 2. Pt is asymptomatic from a cardiology standpoint and is a low and acceptable risk from a cardiac standpoint to proceed with cholecystectomy.
[2018-10-25 07:45] LABS: Basophils % 0.2 % (0.1-2.0); Eosinophils # 0.2 K/mm3 (0.0-0.4); Eosinophils % 1.4 % (0.1-12.0); Hematocrit 39.7 % (42.0-52.0); Lymphocytes # 1.6 K/mm3 (0.7-4.5); Lymphocytes % 14.4 % (10-50); Mean Corpuscular HGB Conc 32.9 g/dL (31.8-35.4); Mean Corpuscular Hemoglobin 30.5 pg (27.0-31.2); Mean Corpuscular Volume 92.7 fl (80-94); Mean Platelet Volume 7.1 fl (7.4-10.4); Monocytes # 0.9 K/mm3 (0.1-1.0); Monocytes % 8.2 % (1.7-9.3); Neutrophils # 8.4 K/mm3 (1.8-7.8); Neutrophils % 75.7 % (37.0-80.0); Platelet Count 213 K/mm3 (142-424); Red Blood Count 4.28 M/mm3 (4.60-6.20); Red Cell Distribution Width 12.4 % (11.5-17.5); White Blood Count 11.1 K/mm3 (4.8-10.8)
[2018-10-25 07:59] LABS: Anion Gap 11.4 mEq/L (5-15); Calcium 8.6 mg/dL (8.5-10.1); Potassium 4.4 mmoL/L (3.5-5.1)
--- NOTE | 2018-10-25 08:02 | Pharmacy Consult Notes ---
[facility] VTE Monitoring - Patient Demographics Admission date: 10/24/18 Report Date: 10/25/18 Time: 08:02 Allergies/Adverse Reactions: Patient Allergies No Known Allergies Allergy (Verified 10/24/18 09:29) Height: 1.91 m Weight: 77.763 kg Patient Problems: Current Active Problems Schatzki's ring (Acute) Gastric polyp (Acute) Hiatal hernia (Acute) Insomnia (Acute) Tobacco use disorder (Acute) Acute cholecystitis (Acute) RUQ pain (Acute) COPD (chronic obstructive pulmonary disease) (Acute) - VTE Risk Labs: VTE Related Lab Results Hgb 14.7 g/dL (14.1-18.0) 10/24/18 09:25 Hct 39.7 % (42.0-52.0) L 10/25/18 07:05 Plt Count 213 K/mm3 (142-424) D 10/25/18 07:05 BUN 13 mg/dL (7-18) 10/24/18 09:25 Creatinine 1.15 mg/dL (0.70-1.30) 10/24/18 09:25 Estimated Creat Clear 73 mL/min (50-200) 10/24/18 09:25 Was VTE Risk Assessment Performed: Yes VTE Score: 2 VTE Risk Level: Very Low Risk - Prophylaxis VTE Prophylaxis Ordered?: Yes Types of VTE Prophylaxis: TEDS Knee High Location of Applied Device: Bilateral Lower Extremeties - VTE Diagnosis Confirmed Treatment or plan recommended: Continue Current Treatment
[2018-10-25 08:05] LABS: Hemoglobin 13.1 g/dL (14.1-18.0)
--- NOTE | 2018-10-25 09:03 | Progress Note ---
Internal Medicine - PN: Subj *Date: 10/25/18 *Time: 09:02 Exam Vital signs and Labs for Last 24 Hours: Temp Pulse Resp BP Pulse Ox 98.9 F 63 16 131/62 93 L 10/25/18 08:00 10/25/18 08:00 10/25/18 08:00 10/25/18 08:00 10/25/18 08:00 Laboratory Results - last 24 hr 10/24/18 09:25: Sodium 139, Potassium 3.4 L, Chloride 101, Carbon Dioxide 29, Anion Gap 12.4, BUN 13, Creatinine 1.15, Estimated Creat Clear 73, Estimated GFR 64, Est GFR ( Amer) 77, Glucose 190 H, Calcium 9.2, Total Bilirubin 0.5, AST 19, ALT 47, Alkaline Phosphatase 115, Total Creatine Kinase 73, CK-MB (CK-2) 1.2, CK-MB (CK-2) Rel Index 1.6, Troponin I < 0.02, Total Protein 7.4, Albumin 4.1, Globulin 3.3 H, Albumin/Globulin Ratio 1.2, Amylase 57, Lipase 148 10/24/18 09:25: WBC 13.9 H, RBC 4.93, Hgb 14.7, Hct 45.8, MCV 92.8, MCH 29.8, MCHC 32.2, RDW 12.3, Plt Count 307, MPV 7.0 L, Neut % (Auto) 84.9 H, Lymph % (Auto) 9.6 L, [place] % (Auto) 3.7, Eos % (Auto) 1.6, Baso % (Auto) 0.3, Neut # (Auto) 11.8 H, Lymph # (Auto) 1.3, [place] # (Auto) 0.5, Eos # (Auto) 0.2, Baso # (Auto) 0.0 10/24/18 10:15: Lactate 3.1 H 10/24/18 12:50: Urine Color Yellow, Urine Appearance Clear, Urine pH 6.5, Ur Specific [place] <= 1.005, Urine Protein Trace, Urine Glucose (UA) Negative, Urine Ketones Negative, Urine Blood Trace-i, Urine Nitrate Negative, Urine Bilirubin Negative, Urine Urobilinogen 0.2, Ur Leukocyte Esterase Negative, Urine RBC 3-5, Urine WBC Occasional, Ur Squamous Epith Cells Occasional, Urine Bacteria Trace 10/24/18 14:52: Lactate 1.8 10/24/18 15:06: Troponin I < 0.02 10/24/18 21:07: Troponin I < 0.02 10/25/18 07:05: WBC 11.1 H, RBC 4.28 L, Hgb 13.1 L D, Hct 39.7 L, MCV 92.7, MCH 30.5, MCHC 32.9, RDW 12.4, Plt Count 213 D, MPV 7.1 L, Neut % (Auto) 75.7, Lymph % (Auto) 14.4, [place] % (Auto) 8.2, Eos % (Auto) 1.4, Baso % (Auto) 0.2, Neut # (Auto) 8.4 H, Lymph # (Auto) 1.6, [place] # (Auto) 0.9, Eos # (Auto) 0.2, Baso # (Auto) 0.0 10/25/18 07:05: Sodium 136, Potassium 4.4 D, Chloride 102, Carbon Dioxide 27, Anion Gap 11.4, BUN 13, Creatinine 1.02, Estimated Creat Clear 80, Estimated GFR 74, Est GFR ( Amer) 89, Glucose 128 H D, Calcium 8.6 I & O for Last 24 hours: Intake & Output 10/22/18 10/23/18 10/24/18 10/25/18 11:59 11:59 11:59 11:59 Intake Total 860 / 860 Balance 860 / 860 Weight 175 lb 171 lb 7 oz - *Routine HEENT Exam Head: Present: normocephalic Eye: Present: EOMI, PERRL ENT: Present: mucous membranes moist - *Routine Neck Exam Present: supple. Absent: lymphadenopathy - *Routine Respiratory Exam Present: CTA bilaterally - *Routine Cardiovascular Exam Present: RRR - *Routine Abdominal Exam Present: soft, normoactive bowel sounds, tenderness Comments: tenderness rt upper quad - *Routine Extremities Exam Absent: cyanosis, clubbing, edema - *Routine Skin Exam Present: warm. Absent: rash - *Routine Neurological Exam Present: alert, oriented X3 - Routine Psychiatric Exam Present: normal affect Assessment and Plan (1) Acute cholecystitis Current visit: Yes Status: Acute Category: Medical Code(s): K81.0 - Acute cholecystitis (2) Tobacco use disorder Current visit: Yes Status: Acute Category: Medical Code(s): F17.200 - Nicotine dependence, unspecified, uncomplicated (3) COPD (chronic obstructive pulmonary disease) Current visit: Yes Status: Acute Category: Medical Code(s): J44.9 - Chronic obstructive pulmonary disease, unspecified - Assessment and plan all Dx Assessment and Plan for all problems:: rounded with tapan all orders per tapan
--- NOTE | 2018-10-25 13:56 | Progress Note ---
[facility] Anesthesia Checklist - Patient Identification Patient Identification: Arm Band, Verbal (Name & ) - Structural Data Admitted From: Inpatient Planned Operative Procedure/s: Laparoscopic cholecystectomy Consent for Planned Operative Procedure(s) Verified: Yes Verified Documents: Surgical Consent, History and Physical - NPO Status Verified Time NPO: 00:00 - Chart Verification Results Verified: CBC, BMP - Additional verifications Anesthesia Reactions: No - Airway Assessment C-Spine Mobility Assessed: Yes TMJ Mobility Assessed: Yes Dentition: Poor Dentition - Neurological Assessment Level of Consciousness: Awake Hx Seizures: No Numbness or tingling in extremities: No - Anesthesia Plan Anesthesia Risk discussed: Yes Anesthesia Plan: Verified ASA Class: III Anesthesia Type: General [facility] History I have reviewed the patient's past medical history: Yes Medical History: Reports:: Asthma, Depression, Gastroesophageal Reflux Di sease(GERD) Denies:: Cancer, Chronic Obstructive Pulmonary Disease (COPD), Diabetes Mellitus Type 1, Diabetes Mellitus Type 2, Hypertension, Internal Pacemaker, MRSA, Seizures *Have you ever received a pneumonia vaccine?: No *Have you received a flu vaccine this season?: No Other Surgeries: Yes: Colonoscopy. No: Pacemaker Amputation: No Fractures: No - *Social History Educational Level: Completed High School Smoking Status: Current some day smoker Tobacco Type: cigarettes # Packs/Day (cigarettes): 1 Alcohol Intake: current Alcohol Intake Frequency:: a few times a week Substance Use Type: denies use *Occupational Status:: retired Housing: house *Travel in the last 8 weeks: None - Psychiatric History Expresses thoughts of harming self/others: None Suicide Plan Description: No Plan Pschychiatric History:: Reports:: Depression Family Hx:: Asthma
--- NOTE | 2018-10-25 16:15 | Operative Note ---
Date of procedure: 10/25/18 Pre-op Diagnosis:: Acute calculus cholecystitis Post-op Diagnosis:: Acute gangrenous calculus cholecystitis Procedure performed:: Laparoscopic cholecystectomy Surgeon:: Nico Medina MD Anesthesia: KIRTI Estimated blood loss (mL): 25 Operative findings:: Gangrenous cholecystitis with patchy necrosis and severe inflammatory response Infundibulum controlled with Endoloops (x2) #10 Basil-Woodward flat drains (x2) placed in gallbladder fossa Operative note:: After informed consent was obtained, the patient was taken to the operating room and placed in the supine position. General anesthesia was induced and the abdomen was prepped and draped in a sterile fashion. After infiltration with local anesthetic an infraumbilical incision was made. A Veress needle was placed in position. The abdomen was insufflated. A 5 mm optical trocar was placed in position. Under direct visualization, a 12 mm trocar was placed in the subxiphoid position and 2 additional 5 mm trocars were placed in the right upper quadrant. The gallbladder was elevated up and over the liver margin. Severe inflammation with patchy necrosis noted. A small otomy was made in the dome of the gallbladder. The bladder was decompressed by way of suction. The tissue around the cystic duct was carefully dissected. Severe inflammation throughout the entire gallbladder fossa was noted. All tissue was very friable with patchy necrosis. The decision to utilize a "dome down approach" with harmonic cristhian the gallbladder from the liver margin was made and control of the infundibulum was achieved by way of Endoloops (x2). The gallbladder was transected at the infundibulum above the Endoloops. It was placed in a retrieval bag and removed through the subxiphoid trocar site. The right upper quadrant was thoroughly irrigated. No active bleeding or bile leak was noted. A #10 flat Basil-Woodward drain was placed in the gallbladder fossa and exited through the right lateral trocar site. A second #10 flat Basil- Woodward drain was placed in the gallbladder fossa and exited through the medial right upper quadrant trocar site. The drains were secured with 4-0 nylon (x2 per drain). Fascia at the subxiphoid trocar site was reapproximated utilizing 0 Ethibond. The remaining trocars were removed. All wounds were irrigated and skin was closed with 4-0 Monocryl in a subcuticular fashion. Steri-Strips were applied. The patient's anesthetic agents were reversed and extubation was completed prior to transfer to recovery in stable condition. Condition: stable Disposition: PACU Specimens:: Gallbladder Complications:: No immediate
--- NOTE | 2018-10-25 16:21 | Progress Note ---
[facility] Anesthesia Record Part I Intake, IV Amount: 900 Estimated blood loss (mL): 30 Urine output (mL): 0 Blood Products used (#): none Blood Pressure: 114/66 SaO2: 96 Pulse Rate: 100 Respiratory Rate: 16 Temperature: 100.3 F Patient is:: Drowsy, Nasal O2, Stable Stable to PACU at:: 16:20
--- NOTE | 2018-10-25 16:22 | Progress Note ---
[facility] Anesthesia Record Part II Discharge Time: 16:50 Destination: Medical Surgical Department PACU nurse assessment reviewed?: Yes Patient Condition:: Good Anesthesia Complications:: None Swallowing reflex intact?: Yes Cyanosis?: No
--- NOTE | 2018-10-25 16:49 | Cardiology Report ---
PROCEDURE: 2-D M-mode and color Doppler study INDICATIONS FOR THE TEST: Chest pain COPD Heart Murmur+ Tobacco Smoking+ Palpitations Fatigue Syncope Edema Hypertension Diabetes Mellitus Rheumatic Fever SOB [place] Obesity Hyperlipidemia Family History HD Additional History PATIENT INFORMATION HEIGHT: 75 WEIGHT:171 GENDER: Male B/P:116/72 2-D/M-MODE INTERPRETATION: 2-D MEASUREMENTS OBSERVED VALUES IN CMS Right Ventricular Dimension (RVDd) KVNG Interventricular Septum (Thickness)(IVsd) 0.6 Left Ventricular Internal Dimensions(LVIDd) 5.4 Left Ventricular Posterior Wall (Thickness)(LVPWd) 0.7 Aortic Root 3.4 Aortic Cusp Separation 2.7 Left Atrial Dimensions (LAD) 3.5 2D 1. Left atrium is mildly enlarged, left ventricle is normal size, there is no concentric left ventricular hypertrophy, visually estimated ejection fraction 55% with no regional wall motion abnormality. 2. The right atrium and right ventricle are mildly enlarged with normal contractility. 3. The aortic valve is minimally thickened and fibrosed. 4. The mitral and tricuspid valvular grossly normal. 5. The pulmonic valve is poorly visualized. 6. No significant pericardial effusion noted. DOPPLER INTERROGATION: Doppler interrogation of the aortic, mitral and tricuspid valvular presence of mild mitral and tricuspid regurgitation, tricuspid regurgitation jet velocity is inadequate for calculation of the right ventricular systolic pressure, grade 1 diastolic dysfunction seen without tissue Doppler evidence of raised left atrial pressure. CONCLUSION: 1. Mildly enlarged left atrium, normal left ventricular size, preserved left ventricular systolic function diastolic dysfunction seen without tissue Doppler evidence of raised left atrial pressure. 2. Mildly enlarged right ventricle with normal contractility. 3. Mild mitral and tricuspid regurgitation 4. No significant pericardial effusion noted.
[2018-10-26 06:39] LABS: Basophils % 0.1 % (0.1-2.0); Eosinophils % 0.2 % (0.1-12.0); Hematocrit 36.3 % (42.0-52.0); Hemoglobin 11.8 g/dL (14.1-18.0); Lymphocytes # 0.9 K/mm3 (0.7-4.5); Lymphocytes % 7.7 % (10-50); Mean Corpuscular HGB Conc 32.5 g/dL (31.8-35.4); Mean Corpuscular Volume 92.3 fl (80-94); Mean Platelet Volume 7.3 fl (7.4-10.4); Monocytes # 0.7 K/mm3 (0.1-1.0); Monocytes % 5.6 % (1.7-9.3); Neutrophils # 10.1 K/mm3 (1.8-7.8); Neutrophils % 86.5 % (37.0-80.0); Platelet Count 202 K/mm3 (142-424); Red Blood Count 3.94 M/mm3 (4.60-6.20); Red Cell Distribution Width 12.4 % (11.5-17.5); White Blood Count 11.7 K/mm3 (4.8-10.8)
[2018-10-26 06:49] LABS: Albumin Level 2.8 gm/dL (3.4-5.0); Anion Gap 13.2 mEq/L (5-15); Bilirubin,Total 1.1 mg/dL (0.2-1.0); Calcium 8.5 mg/dL (8.5-10.1); Globulin 2.8 gm/dl (1.3-3.2); Potassium 4.2 mmoL/L (3.5-5.1); Total Protein,Serum 5.6 gm/dL (6.4-8.2)
--- NOTE | 2018-10-26 06:54 | Progress Note ---
Subjective Patient reports: other ("sore", but otherwise "fine") Exam Vital signs and Labs for Last 24 Hours: Temp Pulse Resp BP Pulse Ox 97.9 F 91 H 15 108/68 L 96 10/26/18 04:00 10/26/18 04:00 10/26/18 04:00 10/26/18 04:00 10/26/18 04:00 Laboratory Results - last 24 hr 10/25/18 07:05: WBC 11.1 H, RBC 4.28 L, Hgb 13.1 L D, Hct 39.7 L, MCV 92.7, MCH 30.5, MCHC 32.9, RDW 12.4, Plt Count 213 D, MPV 7.1 L, Neut % (Auto) 75.7, Lymph % (Auto) 14.4, [place] % (Auto) 8.2, Eos % (Auto) 1.4, Baso % (Auto) 0.2, Neut # (Auto) 8.4 H, Lymph # (Auto) 1.6, [place] # (Auto) 0.9, Eos # (Auto) 0.2, Baso # (Auto) 0.0 10/25/18 07:05: Sodium 136, Potassium 4.4 D, Chloride 102, Carbon Dioxide 27, Anion Gap 11.4, BUN 13, Creatinine 1.02, Estimated Creat Clear 80, Estimated GFR 74, Est GFR ( Amer) 89, Glucose 128 H D, Calcium 8.6 I & O for Last 24 hours: Intake & Output 10/23/18 10/24/18 10/25/18 10/26/18 11:59 11:59 11:59 11:59 Intake Total 1557 / 1557 2278 / 2278 Output Total 70 / 70 Balance 1557 / 1557 2208 / 2208 Weight 175 lb 171 lb 7 oz - Constitutional no acute distress - *Routine Abdominal Exam Present: soft (dressings intact. serosanguineous fluid in Basil-Woodward drains.) Progress Note: A&P (1) Tobacco use disorder Status: Acute Current Visit: Yes (2) COPD (chronic obstructive pulmonary disease) Status: Acute Current Visit: Yes (3) Acute gangrenous cholecystitis Status: Acute Assessment and plan: stable s/p lap olegario increase ambulation advance diet continue abx f/u AM labs Current Visit: Yes
--- NOTE | 2018-10-26 08:49 | Progress Note ---
Internal Medicine - PN: Subj *Date: 10/26/18 *Time: 08:47 Interval history: Patient laying in bed stating a little more sore than yesterday. Exam Vital signs and Labs for Last 24 Hours: Temp Pulse Resp BP Pulse Ox 98.6 F 92 H 18 135/70 96 10/26/18 08:00 10/26/18 08:00 10/26/18 08:00 10/26/18 08:00 10/26/18 08:00 Laboratory Results - last 24 hr 10/26/18 05:50: WBC 11.7 H, RBC 3.94 L, Hgb 11.8 L, Hct 36.3 L, MCV 92.3, MCH 30.0, MCHC 32.5, RDW 12.4, Plt Count 202, MPV 7.3 L, Neut % (Auto) 86.5 H, Lymph % (Auto) 7.7 L, [place] % (Auto) 5.6, Eos % (Auto) 0.2, Baso % (Auto) 0.1, Neut # (Auto) 10.1 H, Lymph # (Auto) 0.9, [place] # (Auto) 0.7, Eos # (Auto) 0.0, Baso # (Auto) 0.0 10/26/18 05:50: Sodium 139, Potassium 4.2, Chloride 103, Carbon Dioxide 27, Anion Gap 13.2, BUN 13, Creatinine 1.01, Estimated Creat Clear 81, Estimated GFR 74, Est GFR ( Amer) 90, Glucose 115 H, Calcium 8.5, Total Bilirubin 1.1 H , AST 165 H D, ALT 306 H*, Alkaline Phosphatase 104, Total Protein 5.6 L, Albumin 2.8 L, Globulin 2.8, Albumin/Globulin Ratio 1.0 L I & O for Last 24 hours: Intake & Output 10/23/18 10/24/18 10/25/18 10/26/18 11:59 11:59 11:59 11:59 Intake Total 1557 / 1557 2518 / 2518 Output Total 70 / 70 Balance 1557 / 1557 2448 / 2448 Weight 175 lb 171 lb 7 oz - Constitutional no acute distress - *Routine HEENT Exam Head: Present: normocephalic Eye: Present: EOMI, PERRL ENT: Present: mucous membranes moist - *Routine Neck Exam Present: supple. Absent: lymphadenopathy - *Routine Respiratory Exam Present: CTA bilaterally - *Routine Cardiovascular Exam Present: RRR - *Routine Abdominal Exam Present: soft, normoactive bowel sounds, tenderness, drain Comments: 2 ANASTASIA drains draining at bedside. Dressings clean dry and intact - *Routine Extremities Exam Absent: cyanosis, clubbing, edema - *Routine Skin Exam Present: warm. Absent: rash Comments: Dressings clean dry and intact ANASTASIA drains draining - *Routine Neurological Exam Present: alert, oriented X3 Assessment and Plan (1) Tobacco use disorder Current visit: Yes Status: Acute Category: Medical Code(s): F17.200 - Nicotine dependence, unspecified, uncomplicated (2) COPD (chronic obstructive pulmonary disease) Current visit: Yes Status: Acute Category: Medical Code(s): J44.9 - Chronic obstructive pulmonary disease, unspecified (3) Acute gangrenous cholecystitis Current visit: Yes Status: Acute Category: Medical Code(s): K81.0 - Acute cholecystitis - Assessment and plan all Dx Assessment and Plan for all problems:: Rounded with Dr. Yanes all orders per Joaquín Continue antibiotics
[2018-10-26 08:50] LABS: Lymphocytes % 7 % (10-50); Monocytes % 5 % (2-9); Neutrophils % 88 % (42-76); RBC Morphology Normal; Total Cells Counted 100
[2018-10-27 06:36] LABS: Basophils % 0.2 % (0.1-2.0); Eosinophils # 0.6 K/mm3 (0.0-0.4); Eosinophils % 5.3 % (0.1-12.0); Hematocrit 37.1 % (42.0-52.0); Lymphocytes # 2.2 K/mm3 (0.7-4.5); Mean Corpuscular HGB Conc 32.2 g/dL (31.8-35.4); Mean Corpuscular Hemoglobin 29.9 pg (27.0-31.2); Monocytes # 0.7 K/mm3 (0.1-1.0); Monocytes % 6.2 % (1.7-9.3); Neutrophils # 7.4 K/mm3 (1.8-7.8); Neutrophils % 68.3 % (37.0-80.0); Platelet Count 230 K/mm3 (142-424); Red Blood Count 3.99 M/mm3 (4.60-6.20); Red Cell Distribution Width 12.5 % (11.5-17.5); White Blood Count 10.9 K/mm3 (4.8-10.8)
[2018-10-27 08:32] LABS: Albumin Level 2.8 gm/dL (3.4-5.0); Anion Gap 10.9 mEq/L (5-15); Bilirubin,Total 0.5 mg/dL (0.2-1.0); Calcium 8.4 mg/dL (8.5-10.1); Globulin 2.8 gm/dl (1.3-3.2); Potassium 3.9 mmoL/L (3.5-5.1); Total Protein,Serum 5.6 gm/dL (6.4-8.2)
--- NOTE | 2018-10-27 09:34 | Progress Note ---
Subjective Patient reports: nausea (some nausea this AM (he states this is "pretty normal")...wants to go home.) Exam Vital signs and Labs for Last 24 Hours: Temp Pulse Resp BP Pulse Ox 98.3 F 85 17 129/76 95 10/27/18 07:54 10/27/18 07:54 10/27/18 07:54 10/27/18 07:54 10/27/18 07:54 Laboratory Results - last 24 hr 10/27/18 06:15: WBC 10.9 H, RBC 3.99 L, Hgb 12.0 L, Hct 37.1 L, MCV 93.0, MCH 29.9, MCHC 32.2, RDW 12.5, Plt Count 230, MPV 7.0 L, Neut % (Auto) 68.3, Lymph % (Auto) 20.0, [place] % (Auto) 6.2, Eos % (Auto) 5.3, Baso % (Auto) 0.2, Neut # (A uto) 7.4, Lymph # (Auto) 2.2, [place] # (Auto) 0.7, Eos # (Auto) 0.6 H, Baso # (Auto) 0.0 10/27/18 06:15: Sodium 140, Potassium 3.9, Chloride 106, Carbon Dioxide 27, Anion Gap 10.9, BUN 10, Creatinine 0.97, Estimated Creat Clear 82, Estimated GFR 78, Est GFR ( Amer) 94, Glucose 99, Calcium 8.4 L, Total Bilirubin 0.5, AST 61 H D, ALT 197 H D, Alkaline Phosphatase 93, Total Protein 5.6 L, Albumin 2.8 L, Globulin 2.8, Albumin/Globulin Ratio 1.0 L I & O for Last 24 hours: Intake & Output 10/24/18 10/25/18 10/26/18 10/27/18 11:59 11:59 11:59 11:59 Intake Total 1557 / 1557 2768 / 2768 1288 / 1288 Output Total 70 / 70 120 / 120 Balance 1557 / 1557 2698 / 2698 1168 / 1168 Weight 175 lb 171 lb 7 oz 171 lb 6.057 oz Microbiology Reports for the Last 24 Hours: Microbiology 10/24/18 10:15 Blood Blood Culture - Preliminary NO GROWTH AFTER 48 HOURS 10/24/18 10:15 Blood Blood Culture - Preliminary NO GROWTH AFTER 48 HOURS - Constitutional no acute distress - *Routine Respiratory Exam Absent: respiratory distress - *Routine Abdominal Exam Present: soft Comments: JPs with slightly cloudy serosanguineous drainage Progress Note: A&P (1) Tobacco use disorder Status: Acute Current Visit: Yes (2) COPD (chronic obstructive pulmonary disease) Status: Acute Current Visit: Yes (3) Acute gangrenous cholecystitis Status: Acute Assessment and plan: Overall, doing well status post laparoscopic cholecystectomy. Okay from surgical standpoint for discharge home (when tolerating p.o. intake) with ANASTASIA drain teaching and completion of course of antibiotics. Current Visit: Yes
--- NOTE | 2018-10-27 09:48 | Progress Note ---
Internal Medicine - PN: Subj *Date: 10/27/18 *Time: 09:47 Exam Vital signs and Labs for Last 24 Hours: Temp Pulse Resp BP Pulse Ox 98.3 F 85 17 129/76 95 10/27/18 07:54 10/27/18 07:54 10/27/18 07:54 10/27/18 07:54 10/27/18 07:54 Laboratory Results - last 24 hr 10/27/18 06:15: WBC 10.9 H, RBC 3.99 L, Hgb 12.0 L, Hct 37.1 L, MCV 93.0, MCH 29.9, MCHC 32.2, RDW 12.5, Plt Count 230, MPV 7.0 L, Neut % (Auto) 68.3, Lymph % (Auto) 20.0, [place] % (Auto) 6.2, Eos % (Auto) 5.3, Baso % (Auto) 0.2, Neut # (Auto) 7.4, Lymph # (Auto) 2.2, [place] # (Auto) 0.7, Eos # (Auto) 0.6 H, Baso # (Auto) 0.0 10/27/18 06:15: Sodium 140, Potassium 3.9, Chloride 106, Carbon Dioxide 27, Anion Gap 10.9, BUN 10, Creatinine 0.97, Estimated Creat Clear 82, Estimated GFR 78, Est GFR ( Amer) 94, Glucose 99, Calcium 8.4 L, Total Bilirubin 0.5, AST 61 H D, ALT 197 H D, Alkaline Phosphatase 93, Total Protein 5.6 L, Albumin 2.8 L, Globulin 2.8, Albumin/Globulin Ratio 1.0 L I & O for Last 24 hours: Intake & Output 10/24/18 10/25/18 10/26/18 10/27/18 23:59 23:59 23:59 23:59 Intake Total 1010 / 1010 2316 / 2316 1650 / 1650 637 / 637 Output Total 70 / 70 80 / 80 40 / 40 Balance 1010 / 1010 2246 / 2246 1570 / 1570 597 / 597 Weight 77.763 kg 77.763 kg 77.736 kg Microbiology Reports for the Last 24 Hours: Microbiology 10/24/18 10:15 Blood Blood Culture - Preliminary NO GROWTH AFTER 48 HOURS 10/24/18 10:15 Blood Blood Culture - Preliminary NO GROWTH AFTER 48 HOURS Assessment and Plan (1) Tobacco use disorder Current visit: Yes Status: Acute Category: Medical Code(s): F17.200 - Nicotine dependence, unspecified, uncomplicated (2) COPD (chronic obstructive pulmonary disease) Current visit: Yes Status: Acute Category: Medical Code(s): J44.9 - Chronic obstructive pulmonary disease, unspecified (3) Acute gangrenous cholecystitis Current visit: Yes Status: Acute Category: Medical Code(s): K81.0 - Acute cholecystitis The patient's infection will respond to the chosen ABx?: Yes Is the patient receiving the right drug, dose, and route?: Yes Could a more targeted ABx be ordered?: No
--- NOTE | 2018-10-27 13:09 | Progress Note ---
Addendum entered and electronically signed by Ion Delacruz APRN 10/27/18 13:40: Patient states he does not feel like going home today, states he only ate about 25% of his lunch. Encourage patient to be up moving around in the room more sit up in the recliner to watch TV. Possible discharge home in a.m. Original Note: Internal Medicine - PN: Subj *Date: 10/27/18 *Time: 13:30 Exam Vital signs and Labs for Last 24 Hours: Temp Pulse Resp BP Pulse Ox 98.1 F 80 18 125/72 96 10/27/18 11:28 10/27/18 11:28 10/27/18 11:28 10/27/18 11:28 10/27/18 11:28 Laboratory Results - last 24 hr 10/27/18 06:15: WBC 10.9 H, RBC 3.99 L, Hgb 12.0 L, Hct 37.1 L, MCV 93.0, MCH 29.9, MCHC 32.2, RDW 12.5, Plt Count 230, MPV 7.0 L, Neut % (Auto) 68.3, Lymph % (Auto) 20.0, [place] % (Auto) 6.2, Eos % (Auto) 5.3, Baso % (Auto) 0.2, Neut # (Auto) 7.4, Lymph # (Auto) 2.2, [place] # (Auto) 0.7, Eos # (Auto) 0.6 H, Baso # (Auto) 0.0 10/27/18 06:15: Sodium 140, Potassium 3.9, Chloride 106, Carbon Dioxide 27, Anion Gap 10.9, BUN 10, Creatinine 0.97, Estimated Creat Clear 82, Estimated GFR 78, Est GFR ( Amer) 94, Glucose 99, Calcium 8.4 L, Total Bilirubin 0.5, AST 61 H D, ALT 197 H D, Alkaline Phosphatase 93, Total Protein 5.6 L, Albumin 2.8 L, Globulin 2.8, Albumin/Globulin Ratio 1.0 L I & O for Last 24 hours: Intake & Output 10/25/18 10/26/18 10/27/18 10/28/18 11:59 11:59 11:59 11:59 Intake Total 1557 / 1557 2768 / 2768 1538 / 1538 240 / 240 Output Total 70 / 70 120 / 120 Balance 1557 / 1557 2698 / 2698 1418 / 1418 240 / 240 Weight 171 lb 7 oz 171 lb 6.057 oz Microbiology Reports for the Last 24 Hours: Microbiology 10/24/18 10:15 Blood Blood Culture - Preliminary NO GROWTH AFTER 48 HOURS 10/24/18 10:15 Blood Blood Culture - Preliminary NO GROWTH AFTER 48 HOURS - Constitutional no acute distress - *Routine HEENT Exam Head: Present: normocephalic Eye: Present: EOMI, PERRL ENT: Present: mucous membranes moist - *Routine Neck Exam Present: supple. Absent: lymphadenopathy - *Routine Respiratory Exam Present: CTA bilaterally - *Routine Cardiovascular Exam Present: RRR - *Routine Abdominal Exam Present: soft, normoactive bowel sounds, drain. Absent: tenderness Comments: althea drain at rt side - *Routine Extremities Exam Absent: cyanosis, clubbing, edema - *Routine Skin Exam Present: warm. Absent: rash - *Routine Neurological Exam Present: alert, oriented X3 Assessment and Plan (1) Tobacco use disorder Current visit: Yes Status: Acute Category: Medical Code(s): F17.200 - Nicotine dependence, unspecified, uncomplicated (2) COPD (chronic obstructive pulmonary disease) Current visit: Yes Status: Acute Category: Medical Code(s): J44.9 - Chronic obstructive pulmonary disease, unspecified (3) Acute gangrenous cholecystitis Current visit: Yes Status: Acute Category: Medical Code(s): K81.0 - Acute cholecystitis - Assessment and plan all Dx Assessment and Plan for all problems:: tapan will round later today
--- NOTE | 2018-10-28 09:57 | Progress Note ---
Subjective Patient reports: feels better (tolerated breakfast...wanting to go home.) Exam Vital signs and Labs for Last 24 Hours: Temp Pulse Resp BP Pulse Ox 98.1 F 94 H 17 123/74 92 L 10/28/18 07:37 10/28/18 07:37 10/28/18 07:37 10/28/18 07:37 10/28/18 07:37 I & O for Last 24 hours: Intake & Output 10/25/18 10/26/18 10/27/18 10/28/18 11:59 11:59 11:59 11:59 Intake Total 1557 / 1557 2768 / 2768 1538 / 1538 2512 / 2512 Output Total 70 / 70 120 / 120 655 / 655 Balance 1557 / 1557 2698 / 2698 1418 / 1418 1857 / 1857 Weight 171 lb 7 oz 171 lb 6.057 oz - Constitutional no acute distress - *Routine Abdominal Exam Present: soft Comments: Incision(s) clean, dry, and intact. No erythema. JPs with small amount of serosanguineous fluid. Progress Note: A&P (1) Tobacco use disorder Status: Acute Current Visit: Yes (2) COPD (chronic obstructive pulmonary disease) Status: Acute Current Visit: Yes (3) Acute gangrenous cholecystitis Status: Acute Assessment and plan: improving s/p laparoscopic cholecystectomy Okay for discharge home today from surgical standpoint Complete short course of antibiotics Follow-up later this week for likely removal Basil-Woodward drains (to see Dr. Branham in my absence Current Visit: Yes
--- NOTE | 2018-10-28 09:58 | Discharge Summary ---
General - General Admission date:: 10/24/18 Discharge date: 10/28/18 HPI HPI: this wm presented to the ed -3 years old male with history of esophageal ring that requires dilatation, tobacco addiction, asthma, insomnia and depression. Today at 6 AM the patient developed right upper quadrant sharp pain associated with nausea, he attempted to drink some soda but he vomited twice on the way to the hospital. The pain is sharp in character rated 6/10 no precipitating or relieving factor. He attempted to use Lortab from prior prescriptions with no relief. He denies having chest pain, shortness of breath, or palpitations. He denies having hemoptysis hematemesis coffee-ground emesis melanotic stool or bleeding per rectum. He denies having flank pain dysuria hematuria or frequency. Hospital Course Hospital Course: pt has did well in hospital and was seen by surg -darwin calculus cholecystitis Post-op Diagnosis:: Acute gangrenous calculus cholecystitis Procedure performed:: Laparoscopic cholecystectomy Surgeon:: Nico Medina MD Anesthesia: GETA Estimated blood loss (mL): 25 Operative findings:: Gangrenous cholecystitis with patchy necrosis and severe inflammatory response Infundibulum controlled with Endoloops (x2) #10 Basil-Woodward flat drains (x2) placed in gallbladder fossa Operative note:: After informed consent was obtained, the patient was taken to the operating room and placed in the supine position. General anesthesia was induced and the abdomen was prepped and draped in a sterile fashion. After infiltration with local anesthetic an infraumbilical incision was made. A Veress needle was pl aced in position. The abdomen was insufflated. A 5 mm optical trocar was placed in position. Under direct visualization, a 12 mm trocar was placed in the subxiphoid position and 2 additional 5 mm trocars were placed in the right upper quadrant. The gallbladder was elevated up and over the liver margin. Severe inflammation with patchy necrosis noted. A small otomy was made in the dome of the gallbladder. The bladder was decompressed by way of suction. The tissue around the cystic duct was carefully dissected. Severe inflammation throughout the entire gallbladder fossa was noted. All tissue was very friable with patchy necrosis. The decision to utilize a "dome down approach" with harmonic cristhian the gallbladder from the liver margin was made and control of the infundibulum was achieved by way of Endoloops (x2). The gallbladder was transected at the infundibulum above the Endoloops. It was placed in a retrieval bag and removed through the subxiphoid trocar site. The right upper quadrant was thoroughly irrigated. No active bleeding or bile leak was noted. A #10 flat Basil-Woodward drain was placed in the gallbladder fossa and exited through the right lateral trocar site. A second #10 flat Basil- Woodward drain was placed in the gallbladder fossa and exited through the medial right upper quadrant trocar site. The drains were secured with 4-0 nylon (x2 per drain). Fascia at the subxiphoid trocar site was reapproximated utilizing 0 Ethibond. The remaining trocars were removed. All wounds were irrigated and skin was closed with 4-0 Monocryl in a subcuticular fashion. Steri-Strips were applied. The patient's anesthetic agents were reversed and extubation was completed prior to transfer to recovery in stable condition pt has did well and will be d/c on po abx and a few pain meds with drain to see surg this week Objective Vital signs: Temp Pulse Resp BP Pulse Ox 98.1 F 94 H 17 123/74 92 L 10/28/18 07:37 10/28/18 07:37 10/28/18 07:37 10/28/18 07:37 10/28/18 07:37 no acute distress, thin - *Routine HEENT Exam Head: Present: normocephalic Eye: Present: EOMI, PERRL. Absent: conjunctival icterus ENT: Present: mucous membranes dry - *Routine Neck Exam Present: supple - *Routine Respiratory Exam Present: rhonchi - *Routine Cardiovascular Exam Present: RRR, murmur - *Routine Abdominal Exam Present: soft - *Routine Extremities Exam Present: full ROM. Absent: Kaden's sign - *Routine Skin Exam Present: intact - *Routine Neurological Exam Present: alert, oriented X3, CN II-XII intact - Routine Psychiatric Exam Present: normal affect Results Labs on day of discharge: Preliminary micro results at discharge 10/24/18 10:15 Blood Culture - Preliminary Blood NO GROWTH AFTER 48 HOURS 10/24/18 10:15 Blood Culture - Preliminary Blood NO GROWTH AFTER 48 HOURS DS: Diagnosis - Discharge Diagnosis (1) Tobacco use disorder Status: Acute (2) COPD (chronic obstructive pulmonary disease) Status: Acute (3) Acute gangrenous cholecystitis Status: Acute Discharge Plan - Patient Discharge Instructions ACTIVITY: Continue current activity DIET: continue same diet Patient Instructions: DI for Cholecystectomy, DI for Surgical Site Infection, DI for Cholecystitis - Follow up Plan Follow up with: Calvin Branham MD [Staff Physician] - 11/02/18 (for possible drain removal) Disposition: Home, Self-[facility] Medications: Home Medications Medication Instructions Recorded Confirmed Type albuterol sulfate HFA 90 2 puff INHALATION Q6H PRN #18 g 08/08/18 10/24/18 Rx mcg/actuation aerosol inhaler doxepin 100 mg capsule 300 mg PO HS cap 08/08/18 10/25/18 History Fluticasone/Vilanterol [Breo 1 puff INHALATION DAILY 09/05/18 10/25/18 History Ellipta] Lansoprazole 30 mg PO DAILY 10/25/18 10/25/18 History raNITIdine HCl [Acid Spa Director] 150 mg PO BID 10/25/18 10/25/18 History levoFLOXacin [Levaquin 500mg 500 mg PO DAILY #7 tab 10/28/18 Rx tab] metroNIDAZOLE [Flagyl 500mg 500 mg PO Q8H #21 tab 10/28/18 Rx Tablet] Prescriptions/Medication Reconciliation: New Nicotine [Nicoderm 21mg/24hr patch] 14 mg TD DAILYP PRN patch.td24 PRN Reason: Nicotine Cravings metroNIDAZOLE [Flagyl 500mg Tablet] 500 mg PO Q8H #21 tab levoFLOXacin [Levaquin 500mg tab] 500 mg PO DAILY #7 tab Continue albuterol sulfate HFA 90 mcg/actuation aerosol inhaler 2 puff INHALATION Q6H PRN #18 g PRN Reason: shortness of breath or wheezing doxepin 100 mg capsule 300 mg PO HS cap Fluticasone/Vilanterol [Breo Ellipta] 1 puff INHALATION DAILY Lansoprazole 30 mg PO DAILY raNITIdine HCl [Acid Spa Director] 150 mg PO BID
== END 2018-10-28 11:15 | disposition home or self-care (01) ==
LOC: ER 09:16 → 2ND 09:16
PROVIDERS: ADMIT Emergency Medicine; ATTEND Emergency Medicine
DX: G47.00 Insomnia, unspecified; K22.2 Esophageal obstruction; Z79.51 Long term (current) use of inhaled steroids; K81.0 Acute cholecystitis; K80.00 Calculus of gallbladder with acute cholecystitis without obstruction; J44.9 Chronic obstructive pulmonary disease, unspecified; Z79.899 Other long term (current) drug therapy; J45.909 Unspecified asthma, uncomplicated; F17.200 Nicotine dependence, unspecified, uncomplicated; Z86.19 Personal history of other infectious and parasitic diseases; R07.9 Chest pain, unspecified; Z82.49 Family history of ischemic heart disease and other diseases of the circulatory system; R10.11 Right upper quadrant pain; F32.9 Major depressive disorder, single episode, unspecified
CPT/HCPCS: 36415; 71020; 71046; 74177; 80048; 80053; 81001; 82150; 82550; 82553; 83605; 83690; 84484; 85007; 85025; 87040; 87070; 87205; 93005; 93306; 94761; 96365; 96375; 99284; G0378; J1335; J1956; J2405

== ENCOUNTER → 2018-11-16 22:15 | Outpatient (CLI) | payer MEDICAID, SELFPAY ==
[2018-11-24 03:41] LABS: H. pylori Stool Ag, EIA Negative (Negative)
== END ==
PROVIDERS: Visit Provider Surgery
DX: A04.8 Other specified bacterial intestinal infections (principal)
CPT/HCPCS: 87338

== ENCOUNTER 2019-02-21 10:16 | Day surgery (SDC) | payer MEDICAID, SELFPAY ==
[2019-02-21] VITALS (7 sets, daily range): BP systolic 108–134; BP diastolic 66–88; PULSE 71–85; RESP 18; TEMP 36.5–36.9; O2SAT 94–98; BMI 23.1
--- NOTE | 2019-02-21 12:21 | P.PN_ITS ---
[facility] Anesthesia Checklist - Patient Identification Patient Identification: Arm Band, Verbal (Name & ) - Structural Data Admitted From: Home Planned Operative Procedure/s: egd Consent for Planned Operative Procedure(s) Verified: Yes Verified Documents: History and Physical - NPO Status Verified Time NPO: 00:00 - Additional verifications Patient : No Anesthesia Reactions: No Hx Blood Transfusions: No Blood Transfusion Reaction: No Cephalosporin Allergy: No Previous Colonoscopy: Yes - Cardiovascular Assessment Heart Sounds: S1 & S2 Pulse Strength: Baseline Pulse Rhythm: Regular Peripheral Edema: No - Airway Assessment C-Spine Mobility Assessed: Yes TMJ Mobility Assessed: Yes Dentition: Poor Dentition - Neurological Assessment Level of Consciousness: Awake, Alert, Appropriate Hx Seizures: No Numbness or tingling in extremities: No - Anesthesia Plan Anesthesia Risk discussed: Yes Anesthesia Plan: Verified ASA Class: II Anesthesia Type: MAC [facility] History I have reviewed the patient's past medical history: Yes Medical History: Reports:: Asthma, Depression, Gastroesophageal Reflux Disease(GERD), Lung Disease (asthma) Denies:: Cancer, Chronic Obstructive Pulmonary Disease (COPD), Diabetes Mellitus Type 1, Diabetes Mellitus Type 2, Hypertension, Internal Pacemaker, MRSA, Seizures *Have you ever received a pneumonia vaccine?: No *Have you received a flu vaccine this season?: No Other Surgeries: Yes: No Previous Surgery, Cholecystectomy, Colonoscopy, EGD. No: Pacemaker Amputation: No Fractures: No - *Social History Smoking Status: Current some day smoker Tobacco Type: cigarettes # Packs/Day (cigarettes): 1 Alcohol Intake: current Alcohol Intake Frequency:: a few times a month Substance Use Type: denies use *Occupational Status:: retired Housing: house *Travel in the last 8 weeks: None - Psychiatric History Pschychiatric History:: Reports:: Depression Family Hx:: Asthma
--- NOTE | 2019-02-21 12:44 | HMH.SCOPE ---
- Procedure: Date: 02/21/19 Procedure Performed:: Esophagogastroscopy with dilatation Indications:: Schatzki ring Dysphagia Performing Provider:: Nico Medina MD Referring Provider:: . Sedation:: Monitored anesthesia care Procedure:: After informed consent was obtained the patient was taken to the endoscopy suite. Monitored anesthesia care ensued after he was transferred to the left lateral decubitus position. The gastroscope was advanced. The gastroscope was able to be passed into the gastric lumen beyond the point of stricture. The stricture was approximately 9 to 10 mm and the 10 mm diameter scope passed with minimal difficulty. A 10 mm to 12 mm dilating balloon was then placed in position. Dilation to 11 mm was accomplished without difficulty. No excessive bleeding or sign of injury noted. A tiny mucosal rent along the posterior margin of the ring/stricture was noted. Dilation to 12 mm was then accomplished without difficulty. The mucosal rent along the posterior margin was slightly enlarged. No sign of deeper injury was seen. No excessive bleeding was noted. Due to the focal nature of dilation changes as opposed to diffuse dilation changes the decision was made to forego further attempts at expanding the stricture. The gastroscope was carefully removed and the patient was transferred to recovery. Findings:: Distal esophageal stricture/Schatzki ring with 9 to 10 mm opening Dilation to 12 mm completed Further dilation not attempted secondary to focal nature of dilation changes Specimens:: None Recommendations:: Clear liquid diet for 24 hours; then full liquid diet for 48 hours; then soft diet until follow-up appointment in 1 week Continue proton pump inhibition Complications:: No immediate Estimated blood obtained (mL): 1
== END 2019-02-21 13:30 | disposition home or self-care (01) ==
LOC: OUTP 10:19
PROVIDERS: PCP Emergency Medicine; Visit Provider Surgery
PROC: 0DJ08ZZ Inspection of Upper Intestinal Tract, Via Natural or Artificial Opening Endoscopic (ICD-10-PCS; CPT 43235; principal; 2019-02-21 11:30)
DX: K22.2 Esophageal obstruction
CPT/HCPCS: 43249; C1726

== ENCOUNTER → 2019-07-29 13:31 | Outpatient (CLI) | payer MEDICARE, SELFPAY ==
[2019-07-29 14:35] VITALS: PULSE 89; PULSE 92
== END ==
PROVIDERS: PCP Emergency Medicine; Visit Provider Emergency Medicine
DX: R06.09 Other forms of dyspnea (principal)
CPT/HCPCS: 94060; 94618; 94640

== ENCOUNTER → 2019-09-16 20:25 | Outpatient (CLI) | payer MEDICARE, SELFPAY | PROVIDERS: PCP Emergency Medicine; Visit Provider Emergency Medicine | DX: G47.33 Obstructive sleep apnea (adult) (pediatric) (principal); R40.0 Somnolence; R06.83 Snoring | CPT/HCPCS: 95810 ==

== ENCOUNTER → 2020-02-12 19:39 | Outpatient (CLI) | payer MEDICARE, MEDICAID, SELFPAY ==
[2020-02-12 20:28] LABS: Basophils # 0.1 K/mm3 (0-0.2); Basophils % 0.6 % (0.1-2.0); Eosinophils # 0.7 K/mm3 (0.0-0.4); Eosinophils % 7.2 % (0.1-12.0); Hematocrit 52.5 % (42.0-52.0); Hemoglobin 17.2 g/dL (14.1-18.0); Lymphocytes # 2.1 K/mm3 (0.7-4.5); Lymphocytes % 22.5 % (10-50); Mean Corpuscular HGB Conc 32.7 g/dL (31.8-35.4); Mean Corpuscular Hemoglobin 32.1 pg (27.0-31.2); Mean Platelet Volume 8.8 fl (7.4-10.4); Monocytes # 0.5 K/mm3 (0.1-1.0); Monocytes % 5.6 % (1.7-9.3); Neutrophils # 5.9 K/mm3 (1.8-7.8); Neutrophils % 64.1 % (37.0-80.0); Platelet Count 354 K/mm3 (142-424); Red Blood Count 5.36 M/mm3 (4.60-6.20); Red Cell Distribution Width 14.2 % (11.5-17.5); White Blood Count 9.2 K/mm3 (4.8-10.8)
[2020-02-12 20:35] LABS: Chloride 105 mmol/L (98-107)
[2020-02-12 20:36] LABS: Potassium 4.3 mmoL/L (3.5-5.1); Sodium 138 mmol/L (136-145)
[2020-02-12 20:38] LABS: Alanine Aminotransferase 21 U/L (12-78); Albumin Level 4.1 g/dl (3.5-5.0); Albumin/Globulin Ratio 1.7 (1.1-1.8); Alkaline Phosphatase 80 U/L (38-126); Anion Gap 13.3 mEq/L (5-15); Aspartate Amino Transferase 28 U/L (17-59); Bilirubin,Total 0.6 mg/dl (0.2-1.3); Blood Urea Nitrogen 13 mg/dl (9-20); Carbon Dioxide 24 mmol/L (22.0-30.0); Estimated Glomerular Filt Rate 75 ml/min (>60); GFR (African American) 91 ML/MIN (>60); Globulin 2.4 g/dL (1.3-3.2); Total Protein,Serum 6.5 g/dl (6.3-8.2)
[2020-02-12 20:39] LABS: Calcium 9.5 mg/dl (8.4-10.2); Chol/HDL Ratio 2.3 (1-3.5); Cholesterol 136 mg/dl (140-200); Glucose 134 mg/dl (74-100); HDL Cholesterol 58 mg/dl (40-60); Triglycerides 144 mg/dl (30-150); VLDL Cholesterol 29 mg/dL (0-40)
[2020-02-12 20:50] LABS: Direct LDL Cholesterol 82.92 mg/dL (100-129)
[2020-02-12 22:04] LABS: Thyroid Stimulating Hormone 2.47 uIU/mL (0.465-4.68)
[2020-02-14 12:06] LABS: Vitamin D 25 Hydroxy 20.9 ng/mL (30.0-100.0)
== END ==
PROVIDERS: Visit Provider Emergency Medicine
DX: E78.5 Hyperlipidemia, unspecified (principal); R53.83 Other fatigue; K22.2 Esophageal obstruction; E55.9 Vitamin D deficiency, unspecified
CPT/HCPCS: 80053; 80061; 82652; 84439; 84443; 85025

== ENCOUNTER → 2020-02-28 15:52 | Outpatient (CLI) | payer MEDICARE, MEDICAID, SELFPAY ==
[2020-02-28 17:07] LABS: Hemoglobin A1C 5.2 % (4.0-6.0)
[2020-03-01 08:21] LABS: Folate 10.7 ng/mL (>3.0); Vitamin B12 777 pg/mL (232-1245)
== END ==
PROVIDERS: Visit Provider Emergency Medicine
DX: R71.8 Other abnormality of red blood cells (principal); R73.9 Hyperglycemia, unspecified
CPT/HCPCS: 36415; 82607; 82746; 83036

== ENCOUNTER → 2020-05-27 10:43 | Outpatient (CLI) | payer MEDICARE, MEDICAID, SELFPAY ==
[2020-05-27 12:19] LABS: Coronavirus 19 IgG Antibody Negative (Negative); Coronavirus 19 IgM Antibody Negative (Negative)
== END ==
PROVIDERS: Visit Provider Surgery
DX: Z01.818 Encounter for other preprocedural examination (principal); Z13.810 Encounter for screening for upper gastrointestinal disorder
CPT/HCPCS: 36415; 86328

== ENCOUNTER 2020-05-28 09:24 | Day surgery (SDC) | payer MEDICARE, MEDICAID, SELFPAY ==
[2020-05-27 12:44] VITALS: BMI 23.1
[2020-05-28 09:35] VITALS: BP 145/81; PULSE 92; RESP 18; TEMP 36.6; O2SAT 98
--- NOTE | 2020-05-28 11:05 | HMH.ANESCL ---
[facility] [place] Anesthesia Checklist - Patient Identification Patient Identification: Arm Band, Verbal (Name & ) - Structural Data Admitted From: Home Planned Operative Procedure/s: egd Consent for Planned Operative Procedure(s) Verified: Yes Verified Documents: History and Physical - NPO Status Verified Time NPO: 00:00 - Additional verifications Patient : No Anesthesia Reactions: No Hx Blood Transfusions: No Blood Transfusion Reaction: No Cephalosporin Allergy: No Previous Colonoscopy: No - Cardiovascular Assessment Heart Sounds: S1 & S2 Pulse Strength: Baseline Pulse Rhythm: Regular Peripheral Edema: No - Airway Assessment C-Spine Mobility Assessed: Yes TMJ Mobility Assessed: Yes Dentition: Poor Dentition - Neurological Assessment Level of Consciousness: Awake, Alert, Appropriate Hx Seizures: No Numbness or tingling in extremities: No - Anesthesia Plan Anesthesia Risk discussed: Yes Anesthesia Plan: Verified ASA Class: III Anesthesia Type: MAC [facility] [place] History I have reviewed the patient's past medical history: Yes Medical History: Reports:: Anxiety, Asthma, Depression, Gastroesophageal Reflux Disease(GERD), Hyperlipidemia, Hypertension, Lung Disease Denies:: Cancer, Chronic Obstructive Pulmonary Disease (COPD), Diabetes Mellitus Type 1, Diabetes Mellitus Type 2, Internal Pacemaker, MRSA, Seizures *Have you ever received a pneumonia vaccine?: Yes *Have you received a flu vaccine this season?: Yes Other Medical History: Denies: Blood Transfusion Reaction Anesthesia experience/problems:: none Other Surgeries: Yes: No Previous Surgery, Cholecystectomy, Colonoscopy, EGD, Other. No: Pacemaker Amputation: No Fractures: No - *Social History Last grade of school completed: High school graduate Smoking Status: Current every day smoker Tobacco Type: cigarettes # Packs/Day (cigarettes): 20 Alcohol Intake: never Alcohol Intake Frequency:: holidays/special occasions only Substance Use Type: denies use *Occupational Status:: retired Housing: house Household Members: none *Travel in the last 8 weeks: None - Psychiatric History Pschychiatric History:: Reports:: Anxiety, Depression Family Hx:: Asthma
[2020-05-28 11:16] VITALS: O2SAT 98
--- NOTE | 2020-05-28 11:33 | HMH.SCOPE ---
- Procedure: Date: 05/28/20 Patient Date of :: 1955 Procedure Performed:: Esophagogastroduodenoscopy with dilatation Indications:: Dysphagia Schatzki ring with history of dilatation Performing Provider:: Nico Medina MD Referring Provider:: . Sedation:: Monitored anesthesia care Procedure:: After informed consent was obtained the patient was taken to the endoscopy suite. Sedation ensued after the patient was transferred to the left lateral decubitus position. Pulse, blood pressure, and oxygen saturation were monitored throughout the procedure. The endoscope was advanced beyond the duodenal bulb. Retroflexion within the gastric lumen was accomplished. The gastroscope was carefully removed and the patient was transferred to recovery in stable condition. Please see findings and specimens below for detail. Findings:: Inflammatory changes with moderate stricture at gastroesophageal junction (gastroscope advanced with minimal difficulty) Sequential balloon dilatation beginning at 10 mm and ending at 13.5 mm Focal mucosal rents status post dilatation with no obvious through and through injury Specimens:: None Recommendations:: Proton pump inhibition Clear liquids for 24 hours followed by full liquids for 24 hours followed by soft diet Likely repeat EGD with sequential dilatation in near future Complications:: No immediate Estimated blood obtained (mL): 1
[2020-05-28 11:35] VITALS: BP 128/87; PULSE 78; RESP 18; TEMP 36.3; O2SAT 94
[2020-05-28 11:45] VITALS: BP 122/78; PULSE 76; RESP 18; O2SAT 95
[2020-05-28 11:55] VITALS: BP 137/85; PULSE 74; RESP 18; O2SAT 96
== END 2020-05-28 11:55 | disposition home or self-care (01) ==
LOC: OUTP 09:26
PROVIDERS: PCP Emergency Medicine; Visit Provider Surgery
PROC: 0DJ08ZZ Inspection of Upper Intestinal Tract, Via Natural or Artificial Opening Endoscopic (ICD-10-PCS; CPT 43235; principal; 2020-05-28 10:30)
DX: K22.2 Esophageal obstruction (principal); E78.5 Hyperlipidemia, unspecified; I10 Essential (primary) hypertension; K21.9 Gastro-esophageal reflux disease without esophagitis; J45.909 Unspecified asthma, uncomplicated; F41.9 Anxiety disorder, unspecified; F32.9 Major depressive disorder, single episode, unspecified; Z72.0 Tobacco use; Z82.5 Family history of asthma and other chronic lower respiratory diseases; Z87.19 Personal history of other diseases of the digestive system; Z79.899 Other long term (current) drug therapy
CPT/HCPCS: 43249; C1726

== ENCOUNTER → 2020-06-17 11:19 | Outpatient (CLI) | payer MEDICARE, MEDICAID, SELFPAY ==
[2020-06-17 12:59] LABS: Coronavirus 19 IgG Antibody Negative (Negative); Coronavirus 19 IgM Antibody Negative (Negative)
== END ==
PROVIDERS: Visit Provider Surgery
DX: Z01.89 Encounter for other specified special examinations (principal); Z13.810 Encounter for screening for upper gastrointestinal disorder
CPT/HCPCS: 36415; 86328

== ENCOUNTER 2020-06-18 10:57 | Day surgery (SDC) | payer MEDICARE, MEDICAID, SELFPAY ==
[2020-06-17 13:57] VITALS: BMI 24.4
[2020-06-18] VITALS (7 sets, daily range): BP systolic 129–161; BP diastolic 85–105; PULSE 84–95; RESP 18; TEMP 36.9; O2SAT 92–97
--- NOTE | 2020-06-18 12:30 | HMH.SCOPE ---
- Procedure: Date: 06/18/20 Patient Date of :: 1955 Procedure Performed:: Esophagogastroscopy with dilatation (balloon dilatation) Indications:: Sequential dilatation of distal esophageal stricture/Schatzki ring Performing Provider:: Nico Medina MD Referring Provider:: . Sedation:: Monitored anesthesia care Procedure:: After informed consent was obtained the patient was taken to the endoscopy suite. Sedation ensued after the patient was transferred to the left lateral decubitus position. Pulse, blood pressure, and oxygen saturation were monitored throughout the procedure. The endoscope was advanced easily into the gastric lumen. Sequential balloon dilatation from 12 to 15 mm was completed without difficulty. The gastroscope was carefully removed and the patient was transferred to recovery in stable condition. Please see findings and specimens below for detail. Findings:: Inflammatory changes with minimal stricture at gastroesophageal junction (gastroscope advanced without difficulty) Sequential balloon dilatation beginning at 12 mm and ending at 15 mm Focal mucosal rents status post dilatation with no obvious through and through injury Specimens:: None Recommendations:: Clear liquid diet for 24 hours...followed by full liquid diet for 24 hours...followed by soft diet Continue proton pump inhibition Complications:: No immediate Estimated blood obtained (mL): 1
--- NOTE | 2020-06-18 16:35 | HMH.ANESCL ---
[facility] Anesthesia Checklist - Structural Data Admitted From: Home Planned Operative Procedure/s: egd Consent for Planned Operative Procedure(s) Verified: Yes - Additional verifications Anesthesia Reactions: No Hx Blood Transfusions: No Blood Transfusion Reaction: No - Airway Assessment C-Spine Mobility Assessed: Yes TMJ Mobility Assessed: Yes Dentition: Poor Dentition - Neurological Assessment Level of Consciousness: Awake, Alert, Appropriate - Anesthesia Plan Anesthesia Risk discussed: Yes Anesthesia Plan: Verified ASA Class: II Anesthesia Type: MAC [facility] History I have reviewed the patient's past medical history: Yes Medical History: Reports:: Anxiety, Asthma, Depression, Gastroesophageal Reflux Disease(GERD), Hyperlipidemia, Hypertension, Lung Disease Denies:: Cancer, Chronic Obstructive Pulmonary Disease (COPD), Diabetes Mellitus Type 1, Diabetes Mellitus Type 2, Internal Pacemaker, MRSA, Seizures *Have you ever received a pneumonia vaccine?: Yes *Have you received a flu vaccine this season?: No Other Medical History: Denies: Blood Transfusion Reaction Anesthesia experience/problems:: none Other Surgeries: Yes: No Previous Surgery, Cholecystectomy, Colonoscopy, EGD, Other. No: Pacemaker Amputation: No Fractures: No - *Social History Last grade of school completed: High school graduate Smoking Status: Current every day smoker Tobacco Type: cigarettes # Packs/Day (cigarettes): 1 Alcohol Intake: current Alcohol Intake Frequency:: 3 or more drinks per day Substance Use Type: denies use *Occupational Status:: unemployed Housing: house Household Members: friend(s) *Travel in the last 8 weeks: None - Psychiatric History Pschychiatric History:: Reports:: Anxiety, Depression Family Hx:: Asthma
== END 2020-06-18 13:10 | disposition home or self-care (01) ==
LOC: OUTP 10:59
PROVIDERS: PCP Emergency Medicine; Visit Provider Surgery
PROC: 0DJ08ZZ Inspection of Upper Intestinal Tract, Via Natural or Artificial Opening Endoscopic (ICD-10-PCS; CPT 43235; principal; 2020-06-18 12:00)
DX: K22.2 Esophageal obstruction (principal); K20.80 Other esophagitis without bleeding; K22.70 Barrett's esophagus without dysplasia; J45.909 Unspecified asthma, uncomplicated; F41.9 Anxiety disorder, unspecified; F32.9 Major depressive disorder, single episode, unspecified; E78.5 Hyperlipidemia, unspecified; I10 Essential (primary) hypertension; Z72.0 Tobacco use; Z82.5 Family history of asthma and other chronic lower respiratory diseases; G47.33 Obstructive sleep apnea (adult) (pediatric); Z79.899 Other long term (current) drug therapy
CPT/HCPCS: 43249; C1726

== ENCOUNTER 2020-08-07 09:52 | Emergency (ER) | payer MEDICARE, SELFPAY ==
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
[2020-08-07 10:40] VITALS: BP 154/84; PULSE 94; RESP 16; TEMP 36.6; O2SAT 98; BMI 22.5
[2020-08-07 11:00] VITALS: BP 155/70; PULSE 78; RESP 16; TEMP 36.9; O2SAT 98
== END 2020-08-07 11:00 | disposition home or self-care (01) ==
PROVIDERS: Emergency Provider Nurse Practitioner Family; PCP Emergency Medicine
DX: K04.7 Periapical abscess without sinus (principal); F41.8 Other specified anxiety disorders; K21.9 Gastro-esophageal reflux disease without esophagitis; I10 Essential (primary) hypertension; E78.5 Hyperlipidemia, unspecified; F17.210 Nicotine dependence, cigarettes, uncomplicated
CPT/HCPCS: G0463; 99201

== ENCOUNTER → 2021-03-16 13:55 | Outpatient (CLI) | payer MEDICARE, SELFPAY | PROVIDERS: Visit Provider Surgery | DX: Z01.812 Encounter for preprocedural laboratory examination (principal); Z20.822 Contact with and (suspected) exposure to COVID-19; R13.10 Dysphagia, unspecified | CPT/HCPCS: U0003 ==

== ENCOUNTER 2021-03-18 07:31 | Day surgery (SDC) | payer MEDICARE, MEDICAID, SELFPAY ==
[2021-03-10 13:53] VITALS: BMI 23.6
[2021-03-18 07:53] VITALS: BP 144/86; PULSE 98; RESP 20; TEMP 36.9; O2SAT 96
[2021-03-18 08:39] VITALS: O2SAT 97
[2021-03-18 09:00] VITALS: BP 123/69; PULSE 95; RESP 18; TEMP 36.7; O2SAT 98
--- NOTE | 2021-03-18 09:04 | P.PN_ITS ---
[facility] Anesthesia Checklist - Structural Data Admitted From: Home Planned Operative Procedure/s: egd Consent for Planned Operative Procedure(s) Verified: Yes - Additional verifications Anesthesia Reactions: No Hx Blood Transfusions: No Blood Transfusion Reaction: No - Airway Assessment C-Spine Mobility Assessed: Yes TMJ Mobility Assessed: Yes Dentition: Poor Dentition - Neurological Assessment Level of Consciousness: Awake, Alert, Appropriate - Anesthesia Plan Anesthesia Risk discussed: Yes Anesthesia Plan: Verified ASA Class: III Anesthesia Type: MAC [facility] History I have reviewed the patient's past medical history: Yes Medical History: Reports:: Anxiety, Asthma, Depression, Gastroesophageal Reflux Disease(GERD), Hyperlipidemia, Hypertension, Lung Disease Denies:: Cancer, Chronic Obstructive Pulmonary Disease (COPD), Diabetes Mellitus Type 1, Diabetes Mellitus Type 2, Internal Pacemaker, MRSA, Seizures *Have you ever received a pneumonia vaccine?: No *Have you received a flu vaccine this season?: No Other Medical History: Denies: Blood Transfusion Reaction Anesthesia experience/problems:: none Other Surgeries: Yes: No Previous Surgery, Cholecystectomy, Colonoscopy, EGD, Other. No: Pacemaker Amputation: No Fractures: No - *Social History Last grade of school completed: High school graduate Smoking Status: Light tobacco smoker Tobacco Type: cigarettes # Packs/Day (cigarettes): 1 Alcohol Intake: current Alcohol Intake Frequency:: 3 or more drinks per day Substance Use Type: denies use *Occupational Status:: unemployed Housing: house Household Members: friend(s) *Travel in the last 8 weeks: None - Psychiatric History Pschychiatric History:: Reports:: Anxiety, Depression Family Hx:: Asthma
--- NOTE | 2021-03-18 09:04 | HMH.SCOPE ---
- Procedure: Date: 03/18/21 Patient Date of :: 1955 Procedure Performed:: Esophagogastro duodenoscopy with biopsy and dilatation Indications:: Distal esophageal stricture (Schatzki ring) Dysphagia Performing Provider:: Nico Medina MD Referring Provider:: . Sedation:: Monitored anesthesia care Procedure:: After informed consent was obtained the patient was taken to the endoscopy suite. Sedation ensued after the patient was transferred to the left lateral decubitus position. Pulse, blood pressure, and oxygen saturation were monitored throughout the procedure. The endoscope was advanced beyond the duodenal bulb. Retroflexion within the gastric lumen was accomplished. The gastroscope was carefully removed and the patient was transferred to recovery in stable condition. Please see findings and specimens below for detail. Findings:: Distal esophageal stricture secondary to Schatzki ring Endoscope passed beyond the stricture with minimal difficulty Sequential balloon dilatation from 12 to 15 mm Streaking gastritis/duodenitis Specimens:: Antral biopsy Recommendations:: Follow-up pathology Slowly advance diet Complications:: No immediate Estimated blood obtained (mL): 1
[2021-03-18 09:10] VITALS: BP 136/84; PULSE 88; RESP 16; TEMP 36.7; O2SAT 98
[2021-03-18 09:20] VITALS: BP 130/78; PULSE 86; RESP 16; TEMP 36.7; O2SAT 99
[2021-03-18 09:27] VITALS: BP 133/76; PULSE 84; RESP 16; TEMP 36.6; O2SAT 99
== END 2021-03-18 09:30 | disposition home or self-care (01) ==
LOC: OUTP 07:32
PROVIDERS: PCP Emergency Medicine; Visit Provider Surgery
PROC: 0DJ08ZZ Inspection of Upper Intestinal Tract, Via Natural or Artificial Opening Endoscopic (ICD-10-PCS; CPT 43235; principal; 2021-03-18 08:30)
DX: K22.2 Esophageal obstruction (principal); R13.10 Dysphagia, unspecified; K29.70 Gastritis, unspecified, without bleeding; Z79.899 Other long term (current) drug therapy
CPT/HCPCS: 43249; 43254; 88305; C1726

== ENCOUNTER → 2021-10-11 18:37 | Outpatient (CLI) | payer MEDICARE, MEDICAID, SELFPAY ==
[2021-10-11 19:19] LABS: Amphetamine/Metha Screen,Urine Negative ng/ml (<1000); Barbiturates Screen,Urine Negative ng/ml (<200)
[2021-10-11 19:20] LABS: Benzodiazepines Screen,Urine Negative ng/ml (<200)
[2021-10-11 19:21] LABS: Cocaine Screen,Urine Negative ng/ml (<300); Methadone Screen,Urine Negative ng/ml (<300)
[2021-10-11 19:22] LABS: Cannabinoid Screen,Urine Negative ng/ml (<50)
[2021-10-11 19:23] LABS: Opiate Screen,Urine Negative ng/ml (<300); Phencyclidine Screen,Urine Negative ng/ml (<25)
== END ==
PROVIDERS: Visit Provider Emergency Medicine
DX: Z79.899 Other long term (current) drug therapy (principal)
CPT/HCPCS: 80305

== ENCOUNTER → 2021-10-25 13:28 | Outpatient (CLI) | payer MEDICARE, MEDICAID, SELFPAY ==
--- NOTE | 2021-10-25 13:29 | CT_ITS ---
FINAL REPORT CLINICAL HISTORY: lung cancer screening// low dose// no prior scans FINDINGS: Low-Dose Chest CT CTDI vol (mGy): DLP (mGy-cm): Axial images were obtained from the lung apex to the mid abdomen by computed tomography. Low-dose protocol was utilized. FINDINGS: CHEST: There is no axillary adenopathy. There is no hilar or mediastinal adenopathy. The heart is proper size. There is no pericardial or pleural effusion. Limited images of the upper abdomen are unremarkable. Lung window images demonstrate no suspicious infiltrate or nodule. There is mild bibasilar scarring. IMPRESSION: Lung RADS category 1. Recommend 12 month follow-up low-dose chest CT. Reviewed, Interpreted and Dictated by Calvin Nation III, MD Transcribed by Mariela Causey Authenticated by Calvin Nation III, MD on 10/25/2021 02:28:[address] [facility]
== END ==
PROVIDERS: PCP Emergency Medicine; Visit Provider Emergency Medicine
DX: Z87.891 Personal history of nicotine dependence (principal); Z12.2 Encounter for screening for malignant neoplasm of respiratory organs; J44.9 Chronic obstructive pulmonary disease, unspecified
CPT/HCPCS: 71271

== ENCOUNTER → 2022-02-07 09:41 | Outpatient (CLI) | payer MEDICARE, MEDICAID, SELFPAY ==
[2022-02-07 09:57] VITALS: BMI 24.1
== END ==
PROVIDERS: PCP Emergency Medicine; Visit Provider Surgery
DX: Z01.812 Encounter for preprocedural laboratory examination (principal); Z20.822 Contact with and (suspected) exposure to COVID-19; K22.70 Barrett's esophagus without dysplasia
CPT/HCPCS: C9803; U0003; U0005

== ENCOUNTER 2022-02-09 06:33 | Day surgery (SDC) | payer MEDICARE, MEDICAID, SELFPAY ==
[2022-02-08 13:42] VITALS: BMI 23.2
[2022-02-09] VITALS (7 sets, daily range): BP systolic 93–141; BP diastolic 59–88; PULSE 82–114; RESP 16–18; TEMP 36.1–36.8; O2SAT 92–97
--- NOTE | 2022-02-09 06:57 | P.PN_ITS ---
[facility] Anesthesia Checklist - Patient Identification Patient Identification: Arm Band - Structural Data Admitted From: Home Planned Operative Procedure/s: EGD Consent for Planned Operative Procedure(s) Verified: Yes - NPO Status Verified Time NPO: 00:00 - Additional verifications Anesthesia Reactions: No Hx Blood Transfusions: No Blood Transfusion Reaction: No - Airway Assessment C-Spine Mobility Assessed: Yes TMJ Mobility Assessed: Yes Dentition: Poor Dentition - Neurological Assessment Level of Consciousness: Awake Hx Seizures: No Numbness or tingling in extremities: No - Anesthesia Plan Anesthesia Risk discussed: Yes Anesthesia Plan: Verified ASA Class: III Anesthesia Type: MAC [facility] History I have reviewed the patient's past medical history: Yes Medical History: Reports:: Anxiety, Asthma, Depression, Gastroesophageal Reflux Disease(GERD), Hyperlipidemia, Hypertension, Lung Disease Denies:: Cancer, Chronic Obstructive Pulmonary Disease (COPD), Diabetes Mellitus Type 1, Diabetes Mellitus Type 2, Internal Pacemaker, MRSA, Seizures *Have you ever received a pneumonia vaccine?: Yes *Have you received a flu vaccine this season?: No Other Medical History: Denies: Blood Transfusion Reaction Anesthesia experience/problems:: None Other Surgeries: Yes: No Previous Surgery, Cholecystectomy, Colonoscopy, EGD, Other. No: Pacemaker Amputation: No Fractures: No - *Social History Last grade of school completed: High school graduate Smoking Status: Current every day smoker Tobacco Type: cigarettes # Packs/Day (cigarettes): 1 Alcohol Intake: current Alcohol Intake Frequency:: 0-2 drinks per day Substance Use Type: denies use *Occupational Status:: retired Housing: house Household Members: none *Travel in the last 8 weeks: None - Psychiatric History Pschychiatric History:: Reports:: Anxiety, Depression Family Hx:: No significant family history
--- NOTE | 2022-02-09 07:43 | P.PCN_ITS ---
- Procedure: Date: 02/09/22 Patient Date of :: 1955 Procedure Performed:: Esophagogastroduodenoscopy with biopsy and balloon dilation Indications:: Distal esophageal stricture Dysphagia Note: He has undergone esophagogastroscopy with dilation on multiple occasions. He is almost 1 year status post his most recent dilation (balloon dilation from 12 to 15 mm). Performing Provider:: Nico Medina MD Referring Provider:: . Sedation:: Monitored anesthesia care Procedure:: After informed consent was obtained the patient was taken to the endoscopy suite. Sedation ensued after the patient was transferred to the left lateral decubitus position. Pulse, blood pressure, and oxygen saturation were monitored throughout the procedure. The endoscope was advanced beyond the duodenal bulb. Retroflexion within the gastric lumen was accomplished. Balloon dilation to 12 mm completed. The gastroscope was carefully removed and the patient was tr ansferred to recovery in stable condition. Please see findings and specimens below for detail. Findings:: Esophageal stricture did allow passage of gastroscope with minimal difficulty Balloon dilation to 12 mm completed Posterior rent after 12 mm dilation noted Sequential dilation not completed secondary to above-stated rent Patchy gastritis and focal duodenitis noted Antral biopsy obtained Specimens:: Antral biopsy Recommendations:: Clear liquids for 24 hours Then full liquids 3-4 days Then soft diet Complications:: No immediate Estimated blood obtained (mL): 1
== END 2022-02-09 08:30 | disposition home or self-care (01) ==
PROVIDERS: PCP Emergency Medicine; Visit Provider Surgery
PROC: 0DJ08ZZ Inspection of Upper Intestinal Tract, Via Natural or Artificial Opening Endoscopic (ICD-10-PCS; CPT 43235; principal; 2022-02-09 07:30)
DX: R05.9 Cough, unspecified (principal); K22.719 Barrett's esophagus with dysplasia, unspecified; K22.2 Esophageal obstruction; K29.60 Other gastritis without bleeding; K29.80 Duodenitis without bleeding
CPT/HCPCS: 43239; 43249; 88305; C1726

== ENCOUNTER → 2022-03-12 09:51 | Outpatient (CLI) | payer MEDICARE, MEDICAID, SELFPAY | PROVIDERS: PCP Emergency Medicine; Visit Provider Surgery | DX: Z01.812 Encounter for preprocedural laboratory examination (principal); Z20.822 Contact with and (suspected) exposure to COVID-19; Z13.810 Encounter for screening for upper gastrointestinal disorder; K22.2 Esophageal obstruction | CPT/HCPCS: C9803; U0003; U0005 ==

== ENCOUNTER 2022-03-15 10:22 | Day surgery (SDC) | payer MEDICARE, MEDICAID, SELFPAY ==
[2022-03-15 11:04] VITALS: BP 139/82; PULSE 99; RESP 18; TEMP 36.1; O2SAT 94; BMI 21.1
--- NOTE | 2022-03-15 11:17 | HMH.ANESCL ---
[facility] Anesthesia Checklist - Patient Identification Patient Identification: Arm Band - Structural Data Admitted From: Home Planned Operative Procedure/s: EGD/ dilation Consent for Planned Operative Procedure(s) Verified: Yes - NPO Status Verified Time NPO: 00:00 - Additional verifications Anesthesia Reactions: No Hx Blood Transfusions: No Blood Transfusion Reaction: No - Airway Assessment C-Spine Mobility Assessed: Yes TMJ Mobility Assessed: Yes Dentition: Poor Dentition - Neurological Assessment Level of Consciousness: Awake Hx Seizures: No Numbness or tingling in extremities: No - Anesthesia Plan Anesthesia Risk discussed: Yes Anesthesia Plan: Verified ASA Class: III Anesthesia Type: MAC [facility] History Medical History: Reports:: Anxiety, Asthma, Depression, Gastroesophageal Reflux Disease(GERD), Hyperlipidemia, Hypertension, Lung Disease Denies:: Cancer, Chronic Obstructive Pulmonary Disease (COPD), Diabetes Mellitus Type 1, Diabetes Mellitus Type 2, Internal Pacemaker, MRSA, Seizures *Have you ever received a pneumonia vaccine?: Yes *Have you received a flu vaccine this season?: No Other Medical History: Denies: Blood Transfusion Reaction Anesthesia experience/problems:: None Other Surgeries: Yes: No Previous Surgery, Cholecystectomy, Colonoscopy, EGD, Other. No: Pacemaker Amputation: No Fractures: No - *Social History Last grade of school completed: High school graduate Smoking Status: Current every day smoker Tobacco Type: cigarettes # Packs/Day (cigarettes): 1 Alcohol Intake: current Alcohol Intake Frequency:: 3 or more drinks per day Substance Use Type: denies use *Occupational Status:: disabled Housing: house Household Members: none *Travel in the last 8 weeks: None - Psychiatric History Pschychiatric History:: Reports:: Anxiety, Depression Family Hx:: No significant family history
[2022-03-15 12:11] VITALS: O2SAT 94
[2022-03-15 12:32] VITALS: BP 97/65; PULSE 83; RESP 18; TEMP 36.4; O2SAT 93
--- NOTE | 2022-03-15 12:32 | HMH.SCOPE ---
- Procedure: Date: 03/15/22 Patient Date of :: 1955 Procedure Performed:: Esophagogastroduodenoscopy with biopsy and balloon dilation Indications:: Distal esophageal stricture/Schatzki ring Recent dilation only to 12 mm secondary to single mucosal rent Performing Provider:: Nico Medina MD Referring Provider:: . Sedation:: Monitored anesthesia care Procedure:: After informed consent was obtained the patient was taken to the endoscopy suite. Sedation ensued after the patient was transferred to the left lateral decubitus position. Pulse, blood pressure, and oxygen saturation were monitored throughout the procedure. The endoscope was advanced into the gastric lumen. Dilation to 15 mm completed. Biopsy of antrum also obtained. Retroflexion within the gastric lumen was accomplished. The gastroscope was carefully removed and the patient was transferred to recovery in stable condition. Please see findings and specimens below for detail. Findings:: Increased focal gastritis distally Stricture dilated to 15 mm (balloon dilatation) Specimens:: Antral biopsy Recommendations:: Clear liquid diet...followed by full liquid diet...followed by soft diet Follow-up pathology Continue proton pump inhibition Complications:: No immediate Estimated blood obtained (mL): 1
[2022-03-15 12:42] VITALS: BP 102/70; PULSE 83; RESP 18; O2SAT 95
[2022-03-15 12:52] VITALS: BP 109/71; PULSE 75; RESP 18; O2SAT 95
[2022-03-15 13:01] VITALS: BP 117/72; PULSE 77; RESP 18; O2SAT 95
== END 2022-03-15 13:03 | disposition home or self-care (01) ==
LOC: OUTP 10:24
PROVIDERS: PCP Emergency Medicine; Visit Provider Surgery
PROC: 0DJ08ZZ Inspection of Upper Intestinal Tract, Via Natural or Artificial Opening Endoscopic (ICD-10-PCS; CPT 43235; principal; 2022-03-15 11:30)
DX: K22.2 Esophageal obstruction (principal); K29.60 Other gastritis without bleeding; R13.10 Dysphagia, unspecified; K21.9 Gastro-esophageal reflux disease without esophagitis; I10 Essential (primary) hypertension; E78.5 Hyperlipidemia, unspecified; F41.9 Anxiety disorder, unspecified; F32.A Depression, unspecified; Z72.0 Tobacco use; J44.9 Chronic obstructive pulmonary disease, unspecified; Z79.899 Other long term (current) drug therapy
CPT/HCPCS: 43239; 43249; 88305; 88342; C1726

== ENCOUNTER → 2022-03-29 06:40 | Outpatient (CLI) | payer MEDICARE, MEDICAID, SELFPAY ==
[2022-03-28 19:14] LABS: Barbiturates Screen,Urine Negative ng/ml (<200)
[2022-03-28 19:15] LABS: Amphetamine/Metha Screen,Urine Negative ng/ml (<1000); Benzodiazepines Screen,Urine Negative ng/ml (<200)
[2022-03-28 19:16] LABS: Cannabinoid Screen,Urine Negative ng/ml (<50)
[2022-03-28 19:17] LABS: Cocaine Screen,Urine Negative ng/ml (<300); Methadone Screen,Urine Negative ng/ml (<300)
[2022-03-28 19:19] LABS: Opiate Screen,Urine Negative ng/ml (<300)
[2022-03-28 19:20] LABS: Phencyclidine Screen,Urine Negative ng/ml (<25)
== END ==
PROVIDERS: PCP Emergency Medicine; Visit Provider Emergency Medicine
DX: Z79.899 Other long term (current) drug therapy (principal)
CPT/HCPCS: 80305

== ENCOUNTER 2022-10-04 09:26 | Day surgery (SDC) | payer MEDICARE, MEDICAID, SELFPAY ==
[2022-09-30 13:44] VITALS: BMI 23.1
[2022-10-04 09:46] VITALS: BP 153/80; PULSE 91; RESP 18; TEMP 36.8; O2SAT 96
[2022-10-04 10:04] VITALS: O2SAT 98
--- NOTE | 2022-10-04 10:52 | HMH.SCOPE ---
Procedure: Date: 10/04/22 Patient Date of :: 1955 Procedure Performed:: Esophagogastroduodenoscopy with dilation and biopsy Colonoscopy with polypectomy Indications:: Esophageal stricture (most recently dilated to 15 mm in March 2022) Screening colonoscopy Performing Provider:: Nico Medina MD Referring Provider:: . Sedation:: Monitored anesthesia care Procedure:: After informed consent was obtained the patient was taken to the endoscopy suite. Sedation ensued after the patient was transferred to the left lateral decubitus position. Pulse, blood pressure, and oxygen saturation were monitored throughout the procedure. The endoscope was advanced beyond the duodenal bulb. Retroflexion within the gastric lumen was accomplished. The gastroscope was carefully removed. Digital rectal exam revealed no significant abnormality. The colonoscope was placed in position. The entire colon was evaluated. The colonoscope was carefully removed and the patient was transferred to recovery in stable condition. Please see findings and specimens below for detail. Findings:: Focal inflammatory changes in and around gastroesophageal junction (slightly improved versus prior evaluations) Gastroesophageal junction stricture just of mild passage of endoscope GE junction dilated sequentially to 15 mm utilizing pneumatic balloon Bowel preparation moderate Scattered diverticulosis Complex lobulated sessile polyps (see specimens) Specimens:: Antral biopsy Complex large sessile polyp adjacent to appendiceal orifice (cold snare and cold biopsy forceps) Sessile lobulated right colon polyp (cold snare) Sessile lobulated hepatic flexure polyp (cold snare) Lobulated complex sessile polyp at 45 cm (cold snare) Recommendations:: Timing of repeat colonoscopy is pending pathology will likely be around 1-2 years with extended bowel preparation. Continue proton pump inhibition. Likely repeat esophagogastroduodenoscopy at time of repeat colonoscopy. Complications:: No immediate Estimated blood obtained (mL): 1
[2022-10-04 10:54] VITALS: BP 94/62; PULSE 90; RESP 16; TEMP 36.4; O2SAT 92
[2022-10-04 11:04] VITALS: BP 93/63; PULSE 89; RESP 17; O2SAT 93
[2022-10-04 11:14] VITALS: BP 101/67; PULSE 82; RESP 16; O2SAT 92
--- NOTE | 2022-10-04 11:25 | SUR.PHASEII ---
pt educated on diet plans the next three days. verbal understanding.
[2022-10-04 11:30] VITALS: BP 132/91; PULSE 82; RESP 16; O2SAT 92
== END 2022-10-04 11:30 | disposition home or self-care (01) ==
PROVIDERS: PCP Emergency Medicine; Visit Provider Surgery
PROC: 0DJ08ZZ Inspection of Upper Intestinal Tract, Via Natural or Artificial Opening Endoscopic (ICD-10-PCS; CPT 43235; principal; 2022-10-04 10:30)
DX: Z12.11 Encounter for screening for malignant neoplasm of colon (principal); R13.10 Dysphagia, unspecified; K22.2 Esophageal obstruction; D12.6 Benign neoplasm of colon, unspecified; K57.30 Diverticulosis of large intestine without perforation or abscess without bleeding; F17.210 Nicotine dependence, cigarettes, uncomplicated; Z79.899 Other long term (current) drug therapy
CPT/HCPCS: 43239; 43249; 45380; 45385; 88304; 88305; C1726; J2704

== ENCOUNTER → 2023-03-13 16:30 | Outpatient (CLI) | payer MEDICARE, MEDICAID, SELFPAY ==
--- NOTE | 2023-03-13 16:34 | XR_ITS ---
PROCEDURE INFORMATION: Exam: XR Thoracic Spine Exam date and time: 03/13/2023 4:36 PM Age: 67 years old Clinical indication: Injury or trauma; Fall; Blunt trauma (contusions or hematomas); Additional info: Thoracic pain TECHNIQUE: Imaging protocol: Radiologic exam of the thoracic spine. Views: 3 views. COMPARISON: CT LUNG SCREENING 10/25/2021 1:37 PM FINDINGS: Bones/joints: Vertebral alignment is maintained. There is preservation of vertebral body heights. No visible fracture. Interpedicular distances are maintained. Cervicothoracic junction is obscured by structure overlap. Soft tissues: Unremarkable. IMPRESSION: No acute fracture. No traumatic subluxation.
--- NOTE | 2023-03-13 16:34 | XR_ITS ---
PROCEDURE INFORMATION: Exam: XR Cervical Spine Exam date and time: 03/13/2023 4:36 PM Age: 67 years old Clinical indication: Injury or trauma; Fall; Blunt trauma; Additional info: Cervical pain TECHNIQUE: Imaging protocol: Radiologic exam of the cervical spine. Views: 4 or 5 views. COMPARISON: CT LUNG SCREENING 10/25/2021 1:37 PM FINDINGS: Bones/joints: Odontoid process is intact. Atlantoaxial interval is maintained. There is preservation of vertebral alignment. Facet joints are aligned. No acute fracture.There is preservation of vertebral body heights. No visible fracture. Soft tissues: Unremarkable. IMPRESSION: No acute fracture or traumatic subluxation.
--- NOTE | 2023-03-13 16:34 | XR_ITS ---
PROCEDURE INFORMATION: Exam: XR Chest Exam date and time: 03/13/2023 4:36 PM Age: 67 years old Clinical indication: Injury or trauma; Fall; Blunt trauma (contusions or hematomas); Additional info: Hiatal hernia TECHNIQUE: Imaging protocol: Radiologic exam of the chest. Views: 2 views. COMPARISON: CT LUNG SCREENING 10/25/2021 1:37 PM FINDINGS: Lungs: No evidence of pneumonia or interstitial edema. Pleural spaces: Unremarkable. No pleural effusion. No pneumothorax. Heart/Mediastinum: Unremarkable. No cardiomegaly. No definitive evidence of hiatal hernia Bones/joints: Unremarkable. IMPRESSION: 1. No evidence of pneumonia or interstitial edema. 2. No definitive evidence of hiatal hernia
[2023-03-13 18:12] LABS: Basophils % 0.5 % (0.1-2.0); Eosinophils # 0.6 K/mm3 (0.0-0.4); Eosinophils % 6.2 % (0.1-12.0); Hemoglobin 17.3 g/dL (14.1-18.0); Lymphocytes # 2.2 K/mm3 (0.7-4.5); Lymphocytes % 23.7 % (10-50); Mean Corpuscular HGB Conc 31.5 g/dL (31.8-35.4); Mean Corpuscular Hemoglobin 30.6 pg (27.0-31.2); Mean Corpuscular Volume 97.2 fl (80-94); Mean Platelet Volume 8.7 fl (7.4-10.4); Monocytes # 0.6 K/mm3 (0.1-1.0); Monocytes % 6.8 % (1.7-9.3); Neutrophils # 5.9 K/mm3 (1.8-7.8); Neutrophils % 62.8 % (37.0-80.0); Platelet Count 295 K/mm3 (142-424); Red Blood Count 5.66 M/mm3 (4.60-6.20); Red Cell Distribution Width 12.3 % (11.5-17.5); White Blood Count 9.4 K/mm3 (4.8-10.8)
[2023-03-13 18:13] LABS: Alanine Aminotransferase 66 U/L (12-78); Albumin Level 4.5 g/dl (3.5-5.0); Albumin/Globulin Ratio 1.8 (1.1-1.8); Alkaline Phosphatase 87 U/L (38-126); Anion Gap 14.3 mEq/L (5-15); Aspartate Amino Transferase 55 U/L (17-59); Bilirubin,Total 0.8 mg/dl (0.2-1.3); Blood Urea Nitrogen 13 mg/dl (9-20); Calcium 9.7 mg/dl (8.4-10.2); Carbon Dioxide 27 mmol/L (22.0-30.0); Chloride 102 mmol/L (98-107); Cholesterol 171 mg/dl (140-200); Estimated Glomerular Filt Rate 84 ml/min (>60); GFR (African American) 102 ML/MIN (>60); Globulin 2.5 g/dL (1.3-3.2); Glucose 164 mg/dl (74-100); HDL Cholesterol 57 mg/dl (40-60); Potassium 4.3 mmoL/L (3.5-5.1); Sodium 139 mmol/L (136-145); Triglycerides 137 mg/dl (30-150); VLDL Cholesterol 27 mg/dL (0-40)
[2023-03-13 18:22] LABS: Hemoglobin A1C 5.5 % (4.0-6.0)
[2023-03-13 18:24] LABS: Direct LDL Cholesterol 93.49 mg/dL (100-129)
[2023-03-13 18:26] LABS: Amphetamine/Metha Screen,Urine Negative ng/ml (<1000)
[2023-03-13 18:27] LABS: Barbiturates Screen,Urine Negative ng/ml (<200)
[2023-03-13 18:28] LABS: Benzodiazepines Screen,Urine Negative ng/ml (<200); Cannabinoid Screen,Urine Negative ng/ml (<50)
[2023-03-13 18:29] LABS: Cocaine Screen,Urine Negative ng/ml (<300); Methadone Screen,Urine Negative ng/ml (<300)
[2023-03-13 18:31] LABS: 25-OH Vitamin D, Total 46.4 ng/mL (30-100)
[2023-03-13 18:31] LABS: Opiate Screen,Urine Positive ng/ml (<300); Phencyclidine Screen,Urine Negative ng/ml (<25)
[2023-03-13 18:44] LABS: Thyroid Stimulating Hormone 2.08 uIU/mL (0.465-4.68)
[2023-03-13 19:03] LABS: Vitamin B12 885 pg/mL (239-931)
== END ==
PROVIDERS: PCP Emergency Medicine; Visit Provider Emergency Medicine
DX: M54.6 Pain in thoracic spine; E55.9 Vitamin D deficiency, unspecified; Z79.899 Other long term (current) drug therapy
CPT/HCPCS: 71046; 72050; 72072; 80053; 80061; 80305; 82306; 82607; 83036; 84443; 85025

== ENCOUNTER → 2023-05-10 23:43 | Outpatient (CLI) | payer MEDICARE, MEDICAID, SELFPAY ==
[2023-05-10 21:15] LABS: Prostate Specific Ag Screen 3.8 ng/ml (0.0-4.0)
[2023-05-12 07:12] LABS: Testosterone,Total 282 ng/dL (264-916)
== END ==
PROVIDERS: PCP Emergency Medicine; Visit Provider Emergency Medicine
DX: R53.83 Other fatigue (principal); Z12.5 Encounter for screening for malignant neoplasm of prostate
CPT/HCPCS: 84403; G0103

== ENCOUNTER → 2023-07-21 12:40 | Outpatient (CLI) | payer MEDICARE, MEDICAID, SELFPAY ==
[2023-07-21 13:09] LABS: Blood Urea Nitrogen 15 mg/dl (9-20); Estimated Glomerular Filt Rate 84 ml/min (>60); GFR (African American) 101 ML/MIN (>60)
--- NOTE | 2023-07-21 13:12 | CT_ITS ---
FINAL REPORT TECHNIQUE: The patient was injected with IV contrast. Axial images were obtained of the chest by computed tomography. Precontrast images were also obtained. This study was performed with techniques to keep radiation doses as low as reasonably achievable (ALARA). Individualized dose reduction techniques using automated exposure control or adjustment of mA and/or kV according to the patient's size were employed. CLINICAL HISTORY: shortness of breath COMPARISON: CT low-dose 10/25/2021 FINDINGS: CT OF THE CHEST WITH AND WITHOUT CONTRAST: There is no axillary adenopathy. There is no mediastinal mass or adenopathy. Heart size is normal. The mediastinal vasculature is well opacified. There is no pericardial or pleural effusion identified. There is no suspicious pulmonary nodule or infiltrate identified. There is scarring at the left base. Limited images of the upper abdomen demonstrate no acute abnormalities. IMPRESSION: No acute abnormalities. Reviewed, Interpreted and Dictated by Reuben Abdalla MD Transcribed by Paloma Vasquez Authenticated and [facility]
== END ==
PROVIDERS: PCP Emergency Medicine; Visit Provider Emergency Medicine
DX: R53.83 Other fatigue (principal); R06.02 Shortness of breath
CPT/HCPCS: 71270; 82565; 84520; Q9967

== ENCOUNTER → 2023-08-02 07:54 | Outpatient (CLI) | payer MEDICARE, MEDICAID, SELFPAY ==
--- NOTE | 2023-08-02 07:55 | CT_ITS ---
FINAL REPORT CLINICAL HISTORY: gastric pain COMPARISON: None FINDINGS: CT OF THE ABDOMEN AND PELVIS WITH CONTRAST Axial CT images of the abdomen and pelvis were obtained after the administration of IV contrast. Coronal reformatted images were also obtained and reviewed. This study was performed with techniques to keep radiation doses as low as reasonably achievable (ALARA). Individualized dose reduction techniques using automated exposure control or adjustment of mA and/or kV according to the patient's size were employed. Abdomen: There is mild atelectasis or scarring in the left lung base. The heart is normal in size. The liver has an unremarkable appearance, without evidence of mass or biliary ductal dilatation. The gallbladder is not visualized and presumed surgically absent. The spleen is unremarkable. No adrenal mass is present. The pancreas has an unremarkable appearance. The kidneys are normal, without evidence of mass or hydronephrosis. The aorta is normal in caliber. There is no free fluid or adenopathy. No mass or abnormal fluid collection is seen. There is descending and sigmoid diverticulosis. Pelvis: The appendix is normal. The urinary bladder is unremarkable. No inflammatory process is seen. There is no evidence of mass or adenopathy. There is no evidence of bowel obstruction. The prostate is enlarged. There is fusion of multiple thoracolumbar vertebra which may represent DISH. IMPRESSION: Diverticulosis. Enlarged prostate. Reviewed, Interpreted and Dictated by Calvin Nation III, MD Transcribed by Paloma Vasquez Authenticated and [facility]
--- NOTE | 2023-08-02 07:55 | CT_ITS ---
FINAL REPORT CLINICAL HISTORY: bilat leg pain COMPARISON: None FINDINGS: Thin section axial CT images of the abdomen, pelvis and lower extremities were obtained with contrast. Multiplanar reformatted images were also obtained and reviewed. CTA: The distal abdominal aorta is patent. The iliac arteries are patent. The lower leg vessels are not well-visualized secondary to contrast bolus timing, but the bilateral superficial femoral, deep femoral, and popliteal arteries are patent. The proximal lower leg vessels are patent. IMPRESSION: Somewhat technically limited distal lower leg secondary to contrast bolus timing, but no evidence of vascular stenosis or occlusion. Reviewed, Interpreted and Dictated by Calvin Nation III, MD Transcribed by Paloma Vasquez Authenticated and [facility]
--- NOTE | 2023-08-02 07:55 | CT_ITS ---
FINAL REPORT TECHNIQUE: Thin section axial CT with IV contrast supplemented with multiplanar reconstruction under CT angiogram protocol. 3-D reconstructions were performed. This study was performed with techniques to keep radiation doses as low as reasonably achievable (ALARA). Individualized dose reduction techniques using automated exposure control or adjustment of mA and/or kV according to the patient''s size were employed. CLINICAL HISTORY: headache COMPARISON: None FINDINGS: No aneurysm is seen. Major intracranial vessels are patent without significant stenosis. There is near-total opacification of the right maxillary sinus. There is mucosal thickening in the left maxillary with fluid level. There is opacification of multiple ethmoid air cells. There is wall thickening of the maxillary sinuses. IMPRESSION: Findings consistent with chronic sinusitis with probable superimposed acute maxillary sinusitis. Reviewed, Interpreted and Dictated by Calvin Nation III, MD Transcribed by Paloma Vasquez Authenticated and [facility]
== END ==
PROVIDERS: PCP Emergency Medicine; Visit Provider Emergency Medicine
DX: R51.9 Headache, unspecified (principal); M79.604 Pain in right leg; M79.605 Pain in left leg; R10.9 Unspecified abdominal pain
CPT/HCPCS: 70496; 73701; 74177; Q9967

== ENCOUNTER 2023-10-26 17:10 | Outpatient (CLI) | payer MEDICARE, MEDICAID, SELFPAY ==
--- NOTE | 2023-10-26 17:18 | XR_ITS ---
PROCEDURE INFORMATION: Exam: XR Left Knee Exam date and time: 10/26/2023 5:19 PM Age: 68 years old Clinical indication: Injury or trauma; Fall; Blunt trauma; Knee; Left; Additional info: Bilat knee pain TECHNIQUE: Imaging protocol: Radiologic exam of the left knee. Views: 4 or more views. COMPARISON: CT ANGIO LE BI 08/02/2023 8:23 AM FINDINGS: Bones/joints: No acute fracture or malalignment. Mild osteoarthritis. Patellar enthesopathy. Soft tissues: Normal. IMPRESSION: No acute osseous findings.
--- NOTE | 2023-10-26 17:18 | XR_ITS ---
PROCEDURE INFORMATION: Exam: XR Sacrum and Coccyx, 2 or More Views Exam date and time: 10/26/2023 5:19 PM Age: 68 years old Clinical indication: Injury or trauma; Fall; Blunt trauma (contusions or hematomas); Additional info: Fell on bottom TECHNIQUE: Imaging protocol: XR of the sacrum and coccyx, 2 or more views. COMPARISON: CT ABDOMEN PELVIS W CON 08/02/2023 8:13 AM FINDINGS: Bones/joints: No acute fracture or malalignment. Degenerative changes. Soft tissues: Normal. IMPRESSION: No acute osseous findings.
--- NOTE | 2023-10-26 17:18 | XR_ITS ---
PROCEDURE INFORMATION: Exam: XR Right Knee Exam date and time: 10/26/2023 5:19 PM Age: 68 years old Clinical indication: Injury or trauma; Fall; Blunt trauma; Knee; Right; Additional info: Bilat knee pain TECHNIQUE: Imaging protocol: Radiologic exam of the right knee. Views: 4 or more views. COMPARISON: CT ANGIO LE BI 08/02/2023 8:23 AM FINDINGS: Bones/joints: No acute fracture or malalignment. Mild osteoarthritis. Patellar enthesopathy. Soft tissues: Normal. IMPRESSION: No acute osseous findings.
== END 2023-10-26 23:59 ==
LOC: RAD 17:13
PROVIDERS: PCP Nurse Practitioner Family; Visit Provider Nurse Practitioner Family
DX: M53.3 Sacrococcygeal disorders, not elsewhere classified (principal); G89.29 Other chronic pain; M25.561 Pain in right knee; M25.562 Pain in left knee
CPT/HCPCS: 72220; 73564

== ENCOUNTER 2023-11-23 05:19 | Emergency (ER) | payer MEDICARE, MEDICAID, SELFPAY ==
[2023-11-23 05:34] VITALS: BP 130/73; PULSE 98; RESP 20; TEMP 36.6; O2SAT 99; BMI 30.2
--- NOTE | 2023-11-23 05:34 | HMH.EDGENADL ---
Discharge Plan Disposition Patient Disposition: Home, Self-Care Condition: Good Prescriptions Prescriptions: New amoxicillin-pot clavulanate 875-125 mg tablet 1 tab PO BID Qty: 20 0RF naproxen 500 mg tablet 500 mg PO BID Qty: 10 0RF No Action cholecalciferol (vitamin D3) [Vitamin D3] 50 mcg (2,000 unit) capsule See Rx Instructions .ROUTE .COMPLEX Qty: 90 0RF Dose Instruction: Take 1 capsule by mouth once daily Rx Instructions: Take 1 capsule by mouth once daily fluticasone furoate-vilanterol 100-25 mcg/dose blister with device 1 ea IH DAILY Qty: 60 2RF Rx Instructions: Inhale 1 puff by mouth once daily Ventolin HFA 90 mcg/actuation HFA aerosol inhaler 2 puff IH Q6H PRN (Reason: shortness of breath or wheezing) Qty: 18 5RF hydrocodone-acetaminophen 5-325 mg tablet 1 tab PO TID Qty: 75 0RF doxepin 100 mg capsule See Rx Instructions .ROUTE .COMPLEX Qty: 90 0RF Dose Instruction: TAKE 3 CAPSULES BY MOUTH AT BEDTIME Rx Instructions: TAKE 3 CAPSULES BY MOUTH AT BEDTIME omeprazole 40 MG capsule,delayed release(DR/EC) 40 mg PO DAILY Referrals Follow up/Referrals: Rohan Grimaldo DO [Primary Care Provider] - See instructions Activity Restrictions/Add. Instructions Additional Instructions/Restrictions: You were evaluated in the emergency department today. It is important that you follow-up with a dentist as soon as possible. I advised that you see one over the next 24 to 48 hours if possible. We feel that your pain is coming from an infected root of the tooth that is remaining in your left upper gums. At this time, there is no abscess that is drainable by us here in the emergency department. 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 I also prescribed you an anti-inflammatory to have at home as needed for pain. Follow-up closely with your primary care provider. Return to the emergency department for new or worsening symptoms, such as fever, significant worsening of pain and swelling, intractable vomiting, difficulty swallowing, shortness of breath, chest pain, or other concerns. Clinical Impressions Clinical Impression: Pain, dental, Poor dentition requiring referral to dentistry Instructions Patient Instructions: DI for Dental Pain Discharge ED Provider: Angie [facility] Adult HPI General Chief complaint: Dental/Oral Stated complaint: throbbing pain left cheek Time Seen by Provider: 11/23/23 05:29 History of Present Illness HPI narrative: This patient is a 68-year-old male with a history of poor dentition, COPD, ALEXIS, and asthma presenting with concern for left upper gum/cheek pain. He advised that it has been going on for few days now. He states that his gums feel tender there and he feels like his face on that side is a little bit swollen. No drooling, trismus, difficulty swallowing, chest pain, shortness of breath, fevers, chills, or other concerns. He reports that he has very bad teeth because he had a drive shaft fall on his face many years ago and it broke all of his teeth. He needs to see a dentist to get his roots cared for and removed that are remaining, however he has not been able to. He does note a history of dental abscess in the past. Related Data Home Medications Medication Instructions Recorded Confirmed omeprazole 40 mg capsule,delayed 40 mg PO DAILY Reflux/Acid reflux 02/08/22 11/14/23 release Previous Rx's Medication Instructions Recorded cholecalciferol (vitamin D3) 50 See Rx Instructions .Route 10/18/23 mcg (2,000 unit) capsule (Vitamin .COMPLEX #90 caps D3) albuterol sulfate 90 mcg/actuation 2 puff inhalation Q6H PRN 11/14/23 aerosol inhaler (Ventolin HFA) shortness of breath or wheezing #18 grams fluticasone furoate 100 1 ea inhalation DAILY allergies 11/14/23 mcg-vilanterol 25 mcg/dose #60 ea inhalation powder hydrocodone 5 mg-acetaminophen 325 1 tab PO TID Pain #75 tabs 11/14/23 mg tablet doxepin 100 mg capsule See Rx Instructions .Route 11/20/23 .COMPLEX #90 caps amoxicillin 875 mg-potassium 1 tab PO BID #20 tabs 11/23/23 clavulanate 125 mg tablet naproxen 500 mg tablet 500 mg PO BID #10 tabs 11/23/23 Allergies Allergy/AdvReac Type Severity Reaction Status Date / Time No Known Allergies Allergy Verified 10/18/23 15:24 [facility] Disclaimer: The information contained in this section may have been updated after the patient was seen, as this information can be updated by other users. Medical History Asthma Difficulty in swallowing Surgical History History of colonoscopy History of esophagogastroduodenoscopy (EGD) History of cholecystectomy Family History Other Family history of diabetes mellitus type II Family history of hyperlipidemia Family history of hypertension Social History Smoking Status: Current every day smoker tobacco type: cigarettes packs per day: 1 (2pks /week) second hand exposure: No alcohol intake: current substance use type: denies use current occupational status: disabled Travel in the last 8 weeks: None household members: none housing: house lives independently: Yes marital status: single education level: high school current occupational exposures/hazards: No caffeine: Yes special kelsey needs: No agree to transfusion: No do you feel safe at home: Yes victim of physical abuse: No victim of emotional abuse: No victim of sexual abuse: No would you like helpful sources: No ROS Obtained: Yes All systems reviewed & no additional complaints except as documented Physical Exam General General appearance: alert and in no apparent distress Head Head exam: atraumatic and normocephalic Eye Eye exam: Present normal appearance, PERRL and EOMI ENT ENT exam: Present normal oropharynx, mucous membranes moist and normal external ear exam Expanded ENT Exam External ear exam: Present normal external inspection Nose exam: Absent sinus tenderness or nasal deviation Nasal speculum exam: Bilateral: normal Mouth exam: Present tongue normal and other (Extremely poor dentition with multiple broken teeth with obvious decay. Tenderness to palpation of was remaining of his left upper teeth without appreciable drainable abscess.); Absent drooling, trismus, lip swelling, tongue elevation or tongue swelling Teeth exam: Present other (Extremely poor dentition making numbering difficult, however patient has multiple fractured teeth with tenderness to palpation of what appears to be the remaining fragment of either tooth 10 or 11) Throat exam: Present normal inspection; Absent tonsillar erythema or tonsillomegaly Neck Neck exam: Present normal inspection, full ROM and trachea midline; Absent tenderness Chest Chest inspection: Present normal inspection and symmetric chest wall rise; Absent tenderness Respiratory Respiratory exam: Present normal lung sounds bilaterally; Absent respiratory distress, wheezes, stridor or accessory muscle use Cardiovascular Cardiovascular exam: Present regular rate and normal rhythm Abdominal Exam Abdominal exam: Present soft; Absent distention, tenderness or guarding Extremities Exam Extremities exam: Present normal inspection, full ROM and normal capillary refill; Absent tenderness or edema Back Exam Back exam: Present normal inspection and full ROM; Absent tenderness Neurological Exam Neurological exam: Present alert, oriented X3, CN II-XII intact and normal gait; Absent motor sensory deficit Psychiatric Psychiatric exam: Present normal affect and normal mood Skin Skin exam: Present warm and dry Medical Decision Making Medical Records Medical records reviewed: Yes I reviewed the patient's medical records. Khari Inquiry Pt receiving controlled substance: No Vital Signs: 11/23/23 05:34 Temperature 97.9 F Temperature Source Oral Pulse Rate [Left Radial] 98 H Respiratory Rate 20 Blood Pressure [Right Arm] 130/73 Blood Pressure Mean [Right Arm] 92 Blood Pressure Source [Right Arm] Automatic Cuff Blood Pressure Position [Right Arm] Sitting 02 Sat by Pulse Oximetry 99 Oxygen Delivery Method Room Air Lab Data Lab results reviewed: Yes I reviewed the patient's lab results. Orders (Tests/Meds): ED MEDICATIONS Discontinued Medications Generic Name Dose Route Start Last Admin Trade Name Freq PRN Reason Stop Dose Admin Amoxicillin/Clavulanate Potassium 1 each 11/23/23 05:30 11/23/23 05:40 Amoxicillin/Clavulanate Potassium 875/125mg Tablet PO 11/23/23 05:31 1 each ONCE ONE Administration Ketorolac Tromethamine 30 mg 11/23/23 05:30 11/23/23 05:40 Ketorolac 30mg/Ml Vial IM 11/23/23 05:31 30 mg ONCE ONE Administration Medical Decision Narrative: In summary, this patient is a 68-year-old male presenting to the Emergency Department for evaluation of dental pain. Differential diagnoses considered include but are not limited to dental abscess, dental caries, facial abscess, facial cellulitis, sinusitis. Ruling out the most morbid conditions drove assessment. On exam, the patient is very well-appearing with normal vital signs on cardiac telemetry. No drooling, trismus, submental swelling, tongue elevation, or any concerning findings that would suggest deep space infection such as Walter's angina. No palpable appreciable abscesses or areas of induration of the face or oropharynx. I considered obtaining basic lab work to screen for infection as well as imaging of the face such as Panorex or CT scan, however I do not feel that this would change management lead given that he is well-appearing without findings concerning for deep space infection on exam. Patient ultimately needs to see a dentist for his extremely poor dentition with multiple fractured teeth that are very tender to palpation. I am concerned that he could be developing a potential dental abscess, so oral Augmentin was administered and prescribed. He was given IM Toradol for pain. At this time, feel patient appropriate for discharge with very close follow-up with a dentist. I advised him that this is very important. I gave him a prescription for Augmentin as well as prescription for naproxen. He already takes Petal at home chronically. Patient was given strict return precautions and was discharged in stable condition after all questions were answered. Critical Care Critical Care Time Critical Care Time: No
[2023-11-23] MEDS: KETOROLAC 30MG/ML VIAL 30 MG IM (05:40)
[2023-11-23] MEDS: AMOXICILLIN/CLAVULANATE POTASSIUM 875/125MG TABLET 1 EACH PO (05:40)
[2023-11-23 05:46] VITALS: BP 140/82; PULSE 77; RESP 19; TEMP 36.7; O2SAT 98
== END 2023-11-23 05:48 | disposition home or self-care (01) ==
LOC: ER 05:42
PROVIDERS: Emergency Provider Emergency Medicine; PCP Internal Medicine
DX: G50.1 Atypical facial pain (principal); J44.9 Chronic obstructive pulmonary disease, unspecified; G47.33 Obstructive sleep apnea (adult) (pediatric); F17.210 Nicotine dependence, cigarettes, uncomplicated
CPT/HCPCS: 96372; 99283

== ENCOUNTER 2024-01-18 23:55 | Emergency (ER) | payer MEDICARE, MEDICAID, SELFPAY ==
[2024-01-18 23:58] VITALS: BP 142/81; PULSE 112; RESP 18; TEMP 36.6; O2SAT 97; BMI 22.1
--- NOTE | 2024-01-19 00:16 | ED_ITS ---
Discharge Plan Disposition Patient Disposition: Home, Self-Care Condition: Good Prescriptions Prescriptions: No Action fluticasone furoate-vilanterol 100-25 mcg/dose blister with device 1 ea IH DAILY Qty: 60 2RF Rx Instructions: Inhale 1 puff by mouth once daily Ventolin HFA 90 mcg/actuation HFA aerosol inhaler 2 puff IH Q6H PRN (Reason: shortness of breath or wheezing) Qty: 18 5RF hydrocodone-acetaminophen 5-325 mg tablet 1 tab PO TID PRN (Reason: Pain) Qty: 90 0RF cholecalciferol (vitamin D3) [Vitamin D3] 50 mcg (2,000 unit) capsule See Rx Instructions .ROUTE .COMPLEX Qty: 90 1RF Dose Instruction: Take 1 capsule by mouth once daily Rx Instructions: Take 1 capsule by mouth once daily doxepin 100 mg capsule See Rx Instructions .ROUTE .COMPLEX Qty: 90 1RF Dose Instruction: TAKE 3 CAPSULES BY MOUTH AT BEDTIME Rx Instructions: TAKE 3 CAPSULES BY MOUTH AT BEDTIME omeprazole 40 mg capsule,delayed release(DR/EC) 40 mg PO DAILY naproxen 500 mg tablet 500 mg PO BID Qty: 10 0RF Referrals Follow up/Referrals: Rohan Grimaldo DO [Primary Care Provider] - See instructions Activity Restrictions/Add. Instructions Additional Instructions/Restrictions: You were evaluated in the emergency department today. Please follow-up closely with your primary care provider. Take Tylenol and ibuprofen at home as needed for pain. Return to the emergency department for new or worsening symptoms. Clinical Impressions Clinical Impression: Hematoma of back Fall Qualifiers: Encounter type: initial encounter Qualified Code(s): W19.XXXA - Unspecified fall, initial encounter Instructions Patient Instructions: DI for Hematoma (Bruise), DI for Thoracic Back Pain Discharge ED Provider: Angie West General Adult HPI General Chief complaint: Neck Pain/Injury Stated complaint: numbness in back, fall 23:50 Time Seen by Provider: 01/19/24 00:01 Mode of Arrival: Ambulatory Source of Information: Patient Limitations: No Limitations Description of Symptoms (Recalled from ER Triage Doc. by RN): Pt presented to ED for back pain. He stated that he was sleeping in his bed and got up to use the bathroom and tripped and fell backward and hit his back on the door frame. He has a red line in the middle of his back. Pt states the area feels numb but is able to feel sensation when touched in all areas, including his arms and legs. History of Present Illness HPI narrative: This patient is a 68-year-old male with history of COPD, ALEXIS, and chronic knee and back pain presenting to the emergency department for evaluation with concern for fall with back injury. Patient reports that he got up from bed to go to the bathroom when he tripped, falling backwards after trying to catch himself and hitting his mid back on the door frame. He has a very large area of swelling as well as an abrasion to his mid back, which she noted in the mirror. This prompted him to come to the ED for further evaluation and management. He denies any head injury or loss of consciousness. He does not use any blood thinners. He states he was well prior to the fall. No other concerns noted at this time. Related Data Home Medications Medication Instructions Recorded Confirmed omeprazole 40 mg capsule,delayed 40 mg PO DAILY Reflux/Acid reflux 12/19/23 01/10/24 release Previous Rx's Medication Instructions Recorded albuterol sulfate 90 mcg/actuation 2 puff inhalation Q6H PRN 11/14/23 aerosol inhaler (Ventolin HFA) shortness of breath or wheezing #18 grams fluticasone furoate 100 1 ea inhalation DAILY allergies 11/14/23 mcg-vilanterol 25 mcg/dose #60 ea inhalation powder naproxen 500 mg tablet 500 mg PO BID #10 tabs 11/23/23 cholecalciferol (vitamin D3) 50 See Rx Instructions .Route 12/19/23 mcg (2,000 unit) capsule (Vitamin .COMPLEX #90 caps D3) doxepin 100 mg capsule See Rx Instructions .Route 12/19/23 .COMPLEX #90 caps hydrocodone 5 mg-acetaminophen 325 1 tab PO TID PRN Pain #90 tabs 01/10/24 mg tablet Allergies Allergy/AdvReac Type Severity Reaction Status Date / Time No Known Allergies Allergy Verified 01/10/24 15:57 [facility] Disclaimer: The information contained in this section may have been updated after the patient was seen, as this information can be updated by other users. Medical History Asthma Difficulty in swallowing Surgical History History of colonoscopy History of esophagogastroduodenoscopy (EGD) History of cholecystectomy Family History Other Family history of diabetes mellitus type II Family history of hyperlipidemia Family history of hypertension Social History Smoking Status: Current every day smoker tobacco type: cigarettes packs per day: 1 (2pks /week) second hand exposure: No alcohol intake: current alcohol intake frequency: 3 or more drinks per day substance use type: denies use current occupational status: disabled Travel in the last 8 weeks: None household members: none housing: house lives independently: Yes marital status: single education level: high school current occupational exposures/hazards: No caffeine: Yes special kelsey needs: No agree to transfusion: No do you feel safe at home: Yes victim of physical abuse: No victim of emotional abuse: No victim of sexual abuse: No would you like helpful sources: No ROS Obtained: Yes All systems reviewed & no additional complaints except as documented Physical Exam General General appearance: alert and in no apparent distress Head Head exam: atraumatic and normocephalic Eye Eye exam: Present normal appearance, PERRL and EOMI ENT ENT exam: Present normal exam, normal oropharynx, mucous membranes moist and normal external ear exam Neck Neck exam: Present normal inspection, full ROM and trachea midline; Absent tenderness Chest Chest inspection: Present normal inspection and symmetric chest wall rise; Absent tenderness Respiratory Respiratory exam: Present normal lung sounds bilaterally; Absent respiratory distress, wheezes, stridor or accessory muscle use Cardiovascular Cardiovascular exam: Present regular rate and normal rhythm Abdominal Exam Abdominal exam: Present soft; Absent distention, tenderness or guarding Extremities Exam Extremities exam: Present normal inspection, full ROM and normal capillary refill; Absent tenderness or edema Back Exam Back exam: Present full ROM and tenderness Back 1 view image: 2 1. Hematoma with overlying superficial abrasion Neurological Exam Neurological exam: Present alert, oriented X3, CN II-XII intact and normal gait; Absent motor sensory deficit Psychiatric Psychiatric exam: Present normal affect and normal mood Skin Skin exam: Present warm and dry Medical Decision Making Medical Records Medical records reviewed: Yes I reviewed the patient's medical records. Khari Inquiry Pt receiving controlled substance: No Vital Signs: 01/18/24 23:58 Temperature 98 F Temperature Source Oral Pulse Rate [Right Brachial] 112 H Respiratory Rate 18 Blood Pressure [Right Arm] 142/81 H Blood Pressure Mean [Right Arm] 101 02 Sat by Pulse Oximetry 97 Oxygen Delivery Method Room Air Lab Data Lab results reviewed: Yes I reviewed the patient's lab results. Orders (Tests/Meds): ED MEDICATIONS Discontinued Medications Generic Name Dose Route Start Last Admin Trade Name Freq PRN Reason Stop Dose Admin Acetaminophen 1,000 mg 01/19/24 00:19 01/19/24 00:40 Acetaminophen 500mg Tab PO 01/19/24 00:20 1,000 mg ONCE ONE Administration ORDERS Category Date Time Status CT cervical spine wo con Stat Cat Scan 01/19/24 00:[address] head/brain wo con Stat Cat Scan 01/19/24 00:[address] lumbar spine wo con Stat Cat Scan 01/19/24 00:[address] thoracic spine wo con Stat Cat Scan 01/19/24 00:19 Completed Medical Decision Narrative: In summary, this patient is a 68-year-old male presenting to the Emergency Department for evaluation of fall with back pain. Differential diagnoses considered include but are not limited to contusion, strain/sprain, hematoma, abrasion, fracture, polytrauma. Ruling out the most morbid conditions drove assessment. It should be noted patient's history includes COPD and ALEXIS which are currently at goal therapy. This complicates all aspects of care by increasing patient's risk for morbidity. I reviewed patient's past medical records and noted previous evaluations for chronic back and knee pain at his primary care provider's office. On exam, patient is well-appearing and is ambulatory without difficulty. He is neurovascularly intact and has no focal symptoms or findings suggestive of spinal cord injury or compression. He has a hematoma overlying his mid to low thoracic spine with superficial abrasion, but otherwise exam is reassuring. Workup included CT head and CT C/T/L-spine without contrast. Patient was given oral Tylenol for symptomatic improvement. I independently interpreted CT scans prior to the radiologist read and noted no acute fracture. Please see their read for final interpretation. On reassessment, the patient is resting comfortably. He remains neurologically intact and ambulatory. Given reassuring workup and exam, I feel that he is appropriate for discharge home with instructions for supportive management. Strict return precautions were given, and he was discharged after all questions were answered Critical Care Critical Care Time Critical Care Time: No
--- NOTE | 2024-01-19 00:19 | CT_ITS ---
PROCEDURE INFORMATION: Exam: CT Cervical Spine Without Contrast Exam date and time: 01/19/2024 12:30 AM Age: 68 years old Clinical indication: Pain; Additional info: Fall with mid back injury TECHNIQUE: Imaging protocol: Computed tomography of the cervical spine without contrast. Radiation optimization: All CT scans at this facility use at least one of these dose optimization techniques: automated exposure control; mA and/or kV adjustment per patient size (includes targeted exams where dose is matched to clinical indication); or iterative reconstruction. COMPARISON: CR XR CERVICAL SPINE 5V 03/13/2023 4:36 PM FINDINGS: Bones: No acute fracture. Facets are normally aligned. Multilevel degenerative facet arthropathy, most severe on the left at C2-C3, C3-C4 and C4-C5. Multilevel degenerative disc disease with partial fusion from and prominent anterior osteophytes from C4 through T2, some of which are bridging. Degenerative neural foraminal narrowing on the left at C3-C4 and bilaterally at C5-C6. No significant central canal stenosis. Lungs: No acute findings in the visualized lung apices. Soft tissues: No acute findings. IMPRESSION: 1. No acute findings in the cervical spine. 2. Advanced multilevel degenerative changes with associated bilateral neuroforaminal narrowing but no significant central canal stenosis.
--- NOTE | 2024-01-19 00:19 | CT_ITS ---
PROCEDURE INFORMATION: Exam: CT Head Without Contrast Exam date and time: 01/19/2024 12:28 AM Age: 68 years old Clinical indication: Pain; Additional info: Fall with mid back injury TECHNIQUE: Imaging protocol: Computed tomography of the head without contrast. Radiation optimization: All CT scans at this facility use at least one of these dose optimization techniques: automated exposure control; mA and/or kV adjustment per patient size (includes targeted exams where dose is matched to clinical indication); or iterative reconstruction. COMPARISON: CT ANGIO HEAD 08/02/2023 8:13 AM FINDINGS: Brain: Age related atrophic changes in the brain. No mass effect or midline shift. No intracranial hemorrhage. No intracranial edema. No evidence of acute territorial ischemia. No significant white matter disease. Cerebral ventricles: No ventriculomegaly. Paranasal sinuses: Mucosal thickening and fluid in the bilateral maxillary sinuses with maxillary sinus wall thickening. Mastoid air cells: No significant mastoid effusion. Bones: Unremarkable. No acute fracture. Soft tissues: No acute findings. IMPRESSION: 1. No acute intracranial findings. 2. Findings suggestive of acute on chronic maxillary sinusitis bilaterally.
--- NOTE | 2024-01-19 00:19 | CT_ITS ---
PROCEDURE INFORMATION: Exam: CT Lumbar Spine Without Contrast Exam date and time: 01/19/2024 12:36 AM Age: 68 years old Clinical indication: Pain; Additional info: Fall with mid back injury TECHNIQUE: Imaging protocol: Computed tomography of the lumbar spine without contrast. Radiation optimization: All CT scans at this facility use at least one of these dose optimization techniques: automated exposure control; mA and/or kV adjustment per patient size (includes targeted exams where dose is matched to clinical indication); or iterative reconstruction. COMPARISON: CT THORACIC SPINE WO CON 01/19/2024 12:32 AM FINDINGS: Bones/joints: No acute fracture. Normal height. Age appropriate alignment. No significant degenerative process. Soft tissues: Unremarkable. IMPRESSION: There is no significant traumatic injury of the lumbar spine.
--- NOTE | 2024-01-19 00:19 | CT_ITS ---
PROCEDURE INFORMATION: Exam: CT Thoracic Spine Without Contrast Exam date and time: 01/19/2024 12:32 AM Age: 68 years old Clinical indication: Pain; Additional info: Fall with mid back injury TECHNIQUE: Imaging protocol: Computed tomography of the thoracic spine without contrast. Radiation optimization: All CT scans at this facility use at least one of these dose optimization techniques: automated exposure control; mA and/or kV adjustment per patient size (includes targeted exams where dose is matched to clinical indication); or iterative reconstruction. COMPARISON: CR XR THORACIC SPINE 3V 03/13/2023 4:36 PM FINDINGS: Bones/joints: No acute fracture. Normal alignment. No significant disc bulge or herniation. No severe spinal canal stenosis. No significant neural foraminal narrowing. Soft tissues: Unremarkable. IMPRESSION: There is no significant traumatic injury of the thoracic spine.
[2024-01-19] MEDS: ACETAMINOPHEN 500MG TAB 1000 MG PO (00:40)
[2024-01-19 01:25] VITALS: BP 123/77; PULSE 97; RESP 14; TEMP 36.7; O2SAT 97
== END 2024-01-19 01:26 | disposition home or self-care (01) ==
PROVIDERS: Emergency Provider Emergency Medicine; PCP Internal Medicine
DX: S20.224A Contusion of middle back wall of thorax, initial encounter (principal); S20.419A Abrasion of unspecified back wall of thorax, initial encounter; F17.210 Nicotine dependence, cigarettes, uncomplicated; J44.9 Chronic obstructive pulmonary disease, unspecified; W01.198A Fall on same level from slipping, tripping and stumbling with subsequent striking against other object, initial encounter
CPT/HCPCS: 70450; 72125; 72128; 72131; 99285

== ENCOUNTER 2024-06-11 09:10 | Day surgery (SDC) | payer MEDICARE, MEDICAID, SELFPAY ==
[2024-06-10 12:41] VITALS: BMI 22.4
[2024-06-11 09:39] VITALS: BP 134/85; PULSE 97; RESP 18; TEMP 36.6; O2SAT 97
[2024-06-11] MEDS: LACTATED RINGERS 1000ML 1,000 ML 25 ML IV (09:51)
--- NOTE | 2024-06-11 09:55 | EXP.ANES.CKL ---
[facility] Disclaimer: The information contained in this section may have been updated after the patient was seen, as this information can be updated by other users. Medical History Asthma Difficulty in swallowing Surgical History History of colonoscopy History of esophagogastroduodenoscopy (EGD) History of cholecystectomy Family History Other Family history of diabetes mellitus type II Family history of hyperlipidemia Family history of hypertension Social History Smoking Status: Current every day smoker tobacco type: cigarettes packs per day: 1 (2pks /week) second hand exposure: No alcohol intake: current alcohol intake frequency: 3 or more drinks per day substance use type: denies use current occupational status: disabled Travel in the last 8 weeks: None household members: none housing: house lives independently: Yes marital status: single education level: high school current occupational exposures/hazards: No caffeine: Yes special kelsey needs: No agree to transfusion: No do you feel safe at home: Yes victim of physical abuse: No victim of emotional abuse: No victim of sexual abuse: No would you like helpful sources: No [facility] Anesthesia Checklist Patient Identification Patient Identification: Arm Band and Verbal (Name & ) Structural Data Admitted From: Home Planned Operative Procedure/s: EGD/Colonoscopy Consent for Planned Operative Procedure(s) Verified: Yes Verified Documents: Surgical Consent and History and Physical NPO Status Verified Time NPO: 00:00 Additional verifications Anesthesia Reactions: No Hx Blood Transfusions: No Blood Transfusion Reaction: No Airway Assessment Mallampati Score:: Class II C-Spine Mobility Assessed: Yes TMJ Mobility Assessed: Yes Dentition: Poor Dentition Neurological Assessment Level of Consciousness: Awake Hx Seizures: No Numbness or tingling in extremities: No Anesthesia Plan Anesthesia Risk discussed: Yes Anesthesia Plan: Verified ASA Class: II Anesthesia Type: MAC
--- NOTE | 2024-06-11 10:30 | [facility].SCOPE ---
Procedure: Date: 06/11/24 Patient Date of :: 1955 Procedure Performed:: Esophagogastroduodenoscopy with biopsy and dilatation Colonoscopy with polypectomy Indications:: History of colon polyps Esophageal stricture Dysphagia Note: Most recent esophagogastroduodenoscopy/colonoscopy in September 2022 somewhat complicated by moderate bowel preparation. Scattered diverticulosis noted. Multiple complex lobulated adenomas were noted. Complex sessile polyps were removed from the periappendiceal region, right colon, hepatic flexure, and at 45 cm. The patient also underwent dilatation of his known gastroesophageal junction stricture to 15 mm with pneumatic balloon. Performing Provider:: Nico Medina MD Referring Provider:: . Sedation:: Monitored anesthesia care Procedure:: After informed consent was obtained the patient was taken to the endoscopy suite. Sedation ensued after the patient was transferred to the left lateral decubitus position. Pulse, blood pressure, and oxygen saturation were monitored throughout the procedure. The endoscope was advanced beyond the duodenal bulb. Retroflexion within the gastric lumen was accomplished. The gastroscope was carefully removed. Digital rectal exam revealed no significant abnormality. The colonoscope was placed in position. The entire colon was evaluated. The colonoscope was carefully removed and the patient was transferred to recovery in stable condition. Please see findings and specimens below for detail. Findings:: Persistent focal inflammatory changes in and around gastroesophageal junction Recurrent gastroesophageal junction stricture (did allow passage of endoscope) GE junction dilated sequentially to 15 mm utilizing pneumatic balloon Once again, bowel preparation moderate Stable freire-diverticulosis Polyps (see specimens) Specimens:: Antral biopsy Adjacent cecal polyps (cold snare and cold biopsy forceps) Proximal right colon polyp (cold snare) Distal right colon polyp (cold snare) Hepatic flexure polyp (cold snare) Recommendations:: Continue proton pump inhibition Repeat colonoscopy pending pathology will likely be around 3 years secondary to size/nature/number of polyps, polyps and short-term repeat evaluation, and moderate bowel preparation. Complications:: No immediate Estimated blood obtained (mL): 1 Colonoscopy Component Colonoscopy Component Was a colonoscopy performed during today's procedure?: Yes Recommended follow up colonoscopy of at least 10 years?: No If no, follow up colonoscopy recommended in ___ years?: (See above) Reason for not recommending >/= 10 yr follow-up interval?: (See above)
[2024-06-11 10:35] VITALS: O2SAT 97
[2024-06-11 11:30] VITALS: BP 89/44; PULSE 86; RESP 18; TEMP 36.1; O2SAT 91
[2024-06-11 11:40] VITALS: BP 105/60; PULSE 82; RESP 16; O2SAT 94
[2024-06-11 11:50] VITALS: BP 113/64; PULSE 84; RESP 16; O2SAT 96
[2024-06-11 12:00] VITALS: BP 125/69; BP 128/78; PULSE 83; PULSE 90; RESP 16; TEMP 36.6; O2SAT 97; O2SAT 98
== END 2024-06-11 12:00 | disposition home or self-care (01) ==
PROVIDERS: PCP Internal Medicine; Visit Provider Surgery
PROC: 0DJD8ZZ Inspection of Lower Intestinal Tract, Via Natural or Artificial Opening Endoscopic (ICD-10-PCS; CPT 43239; principal; 2024-06-11 10:30)
DX: Z86.0100 Personal history of colon polyps, unspecified (principal); K22.2 Esophageal obstruction; R13.10 Dysphagia, unspecified; K57.30 Diverticulosis of large intestine without perforation or abscess without bleeding; K63.5 Polyp of colon
CPT/HCPCS: 43239; 43249; 45385; C1726; J2704; J7120

== ENCOUNTER 2024-06-15 14:23 | Emergency (ER) | payer MEDICARE, MEDICAID, SELFPAY ==
[2024-06-15 14:57] VITALS: BP 110/71; PULSE 71; RESP 20; TEMP 36.8; O2SAT 97; BMI 21.9
--- NOTE | 2024-06-15 15:46 | EXP.UTC ---
Discharge Plan Disposition Patient Disposition: Home, Self-Care Condition: Good Prescriptions Prescriptions: No Action fluticasone furoate-vilanterol 100-25 mcg/dose blister with device 1 ea IH DAILY Qty: 60 2RF Rx Instructions: Inhale 1 puff by mouth once daily Ventolin HFA 90 mcg/actuation HFA aerosol inhaler 2 puff IH Q6H PRN (Reason: shortness of breath or wheezing) Qty: 18 5RF hydrocodone-acetaminophen 5-325 mg tablet 1 tab PO TID PRN (Reason: Pain) Qty: 90 0RF cholecalciferol (vitamin D3) [Vitamin D3] 50 mcg (2,000 unit) capsule See Rx Instructions .ROUTE .COMPLEX Qty: 90 1RF Dose Instruction: Take 1 capsule by mouth once daily Rx Instructions: Take 1 capsule by mouth once daily doxepin 100 mg capsule See Rx Instructions .ROUTE .COMPLEX Qty: 90 2RF Dose Instruction: TAKE 3 CAPSULES BY MOUTH AT BEDTIME Rx Instructions: TAKE 3 CAPSULES BY MOUTH AT BEDTIME omeprazole 40 mg capsule,delayed release(DR/EC) 40 mg PO DAILY PRN (Reason: Reflux/Acid reflux) Referrals Follow up/Referrals: Xiang Garza APRN [Primary Care Provider] - See instructions Activity Restrictions/Add. Instructions Additional Instructions/Restrictions: Apply cold pack to area with something between the pack and your skin. Follow up with primary care provider if symptom persist or worsen. Clinical Impressions Clinical Impression: Bruising at injection site Instructions Patient Instructions: DI for Contusion Print Language Print Language: Ukrainian Discharge ED Provider: Meche Scruggs [facility] General Stated complaint: bruise on wrist form IV Mode of Arrival: Ambulatory Source of Information: Patient Time Seen by Provider: 06/15/24 15:46 Description of Symptoms (Recalled from Triage Doc. by RN): BRUISE ON RIGHT LOWER ARM/WRIST FROM IV STICK HEENT Symptoms (Recalled from RN notes): No Resp Symptoms (Recalled from RN notes): No Skin Symptoms (Recalled from RN notes): Yes MS Symptoms (Recalled from RN notes): No Functional Status (Recalled from RN notes): WNL History of Present Illness Provider Complaint: Pt reports that he had a procedure earlier in the week and the IV site is bruised. He is concerned that it may not be normal. Related Data Home Medications ?Medication ?Instructions ?Recorded ?Confirmed omeprazole 40 mg capsule,delayed 40 mg PO DAILY PRN Reflux/Acid 06/10/24 06/12/24 release reflux Previous Rx's ?Medication ?Instructions ?Recorded albuterol sulfate 90 mcg/actuation 2 puff inhalation Q6H PRN 11/14/23 aerosol inhaler (Ventolin HFA) shortness of breath or wheezing #18 grams fluticasone furoate 100 1 ea inhalation DAILY allergies 11/14/23 mcg-vilanterol 25 mcg/dose #60 ea inhalation powder cholecalciferol (vitamin D3) 50 See Rx Instructions .Route 04/18/24 mcg (2,000 unit) capsule (Vitamin .COMPLEX #90 caps D3) doxepin 100 mg capsule See Rx Instructions .Route 05/23/24 .COMPLEX #90 caps hydrocodone 5 mg-acetaminophen 325 1 tab PO TID PRN Pain #90 tabs 06/12/24 mg tablet Allergies Allergy/AdvReac Type Severity Reaction Status Date / Time No Known Allergies Allergy Verified 06/12/24 16:13 Worker's Comp Is this a Worker's Comp case?: No [facility] Disclaimer: The information contained in this section may have been updated after the patient was seen, as this information can be updated by other users. Medical History Asthma Difficulty in swallowing Surgical History History of colonoscopy History of esophagogastroduodenoscopy (EGD) History of cholecystectomy Family History Other Family history of diabetes mellitus type II Family history of hyperlipidemia Family history of hypertension Social History Smoking Status: Current every day smoker tobacco type: cigarettes packs per day: 1 (2pks /week) second hand exposure: No alcohol intake: current alcohol intake frequency: 3 or more drinks per day substance use type: denies use current occupational status: disabled Travel in the last 8 weeks: None household members: none housing: house lives independently: Yes marital status: single education level: high school current occupational exposures/hazards: No caffeine: Yes special kelsey needs: No agree to transfusion: No do you feel safe at home: Yes victim of physical abuse: No victim of emotional abuse: No victim of sexual abuse: No would you like helpful sources: No ROS Obtained: Yes All systems reviewed & no additional complaints except as documented Constitutional Constitutional: Reports system reviewed and no additional complaints, except as documented Eyes Eyes: Reports system reviewed and no additional complaints, except as documented ENT Ears, Nose, Mouth, and Throat: Reports system reviewed and no additional complaints, except as documented Cardiovascular Cardiovascular: Reports system reviewed and no additional complaints, except as documented Respiratory Respiratory: Reports system reviewed and no additional complaints, except as documented Gastrointestinal Gastrointestingal: Reports system reviewed and no additional complaints, except as documented Genitourinary Male Genitourinary: Reports system reviewed and no additional complaints, except as documented Musculoskeletal Musculoskeletal: Reports system reviewed and no additional complaints, except as documented Integumentary/Breasts Skin/Breast: Reports system reviewed and no additional complaints, except as documented and Reports unusual bruising Neurologic Neurologic: Reports system reviewed and no additional complaints, except as documented Endocrine Endocrine: Reports system reviewed and no additional complaints, except as documented Hematologic/Lymphatic Henatologic/Lymphatic: Reports system reviewed and no additional complaints, except as documented Allergic/Immunologic Allergic/Immunologic: Reports system reviewed and no additional complaints, except as documented Physical Exam General General appearance: alert and in no apparent distress Head Head exam: atraumatic and normocephalic Eye Eye exam: Present normal appearance ENT ENT exam: Present normal exam and normal oropharynx Neck Neck exam: Present normal inspection Chest Chest inspection: Present normal inspection and symmetric chest wall rise Respiratory Respiratory exam: Present normal lung sounds bilaterally Cardiovascular Cardiovascular exam: Present regular rate and normal rhythm Abdominal Exam Abdominal exam: Present soft and normal bowel sounds Extremities Exam Extremities exam: Present normal inspection Back Exam Back exam: Present normal inspection Neurological Exam Neurological exam: Present alert and oriented X3 Psychiatric Psychiatric exam: Present normal affect and normal mood Skin Skin exam: Present warm, dry and intact Expanded Skin Exam Type of lesion: Present other (bruising) Distribution: RUE Body image: 1. bruise noted 2. bruise noted Lymphatic Lymphatic Findings: no adenopathy Medical Decision Making Medical Records Screening: Per USPSTF and CDC recommendations, given the prevalence of disease in our region, it is our hospital?s policy to screen for HIV and viral Hepatitis for all patients aged 18 and over and those with ongoing risk factors. Khari Inquiry Pt receiving controlled substance: No Khari was queried for this patient: No Vital Signs: 06/15/24 14:57 Temperature 98.3 F Temperature Source Oral Pulse Rate [Left Radial] 71 Respiratory Rate 20 Blood Pressure [Left Arm] 110/71 Blood Pressure Mean [Left Arm] 84 02 Sat by Pulse Oximetry 97
[2024-06-15 15:59] VITALS: BP 110/71; PULSE 71; RESP 20; TEMP 36.8
== END 2024-06-15 16:02 | disposition home or self-care (01) ==
PROVIDERS: Emergency Provider Nurse Practitioner Family; PCP Nurse Practitioner Family
DX: R23.3 Spontaneous ecchymoses (principal)
CPT/HCPCS: 99212; G0381

== ENCOUNTER 2024-12-03 10:15 | Day surgery (SDC) | payer MEDICARE, MEDICAID, SELFPAY ==
[2024-12-03] VITALS (10 sets, daily range): BP systolic 99–138; BP diastolic 64–83; PULSE 71–85; RESP 16–18; TEMP 36.3; O2SAT 95–98; BMI 22.5
--- NOTE | 2024-12-03 11:08 | EXP.ANES.CKL ---
[facility] Disclaimer: The information contained in this section may have been updated after the patient was seen, as this information can be updated by other users. Medical History Asthma Difficulty in swallowing Surgical History History of colonoscopy History of esophagogastroduodenoscopy (EGD) History of cholecystectomy Family History Other Family history of diabetes mellitus type II Family history of hyperlipidemia Family history of hypertension Social History Smoking Status: Current every day smoker tobacco type: cigarettes packs per day: 1 (2pks /week) second hand exposure: No alcohol intake: current alcohol intake frequency: 3 or more drinks per day substance use type: denies use current occupational status: disabled Travel in the last 8 weeks: None household members: none housing: house lives independently: Yes marital status: single education level: high school current occupational exposures/hazards: No caffeine: Yes special kelsey needs: No agree to transfusion: No do you feel safe at home: Yes victim of physical abuse: No victim of emotional abuse: No victim of sexual abuse: No would you like helpful sources: No Have you lived/traveled outside US in past 30 days?: No Contact w/someone who lives/traveled outside US past 30 days?: No Exposure to someone with infectious disease in past 14 days?: No Do you have a fever (greater than 100.4 F or 38 C)?: No Have you tested positive for COVID-19: No Exposed to someone with COVID-19 in past 14 days?: No Do you have a sore throat?: No Do you have a cough?: No Do you have any weakness?: No Do you have any diarrhea?: No Are you experiencing any unusual bleeding?: No Do you have any muscle aches/pain?: No Do you have any abdominal pain?: No Are you experiencing loss of taste or smell?: No [facility] Anesthesia Checklist Patient Identification Patient Identification: Arm Band Structural Data Admitted From: Home Planned Operative Procedure/s: EGD Consent for Planned Operative Procedure(s) Verified: Yes Verified Documents: Surgical Consent and History and Physical NPO Status Verified Time NPO: 00:00 Additional verifications Anesthesia Reactions: No Hx Blood Transfusions: No Blood Transfusion Reaction: No Airway Assessment Mallampati Score:: Class II C-Spine Mobility Assessed: Yes TMJ Mobility Assessed: Yes Dentition: Poor Dentition Neurological Assessment Level of Consciousness: Awake, Alert and Appropriate Anesthesia Plan Anesthesia Risk discussed: Yes Anesthesia Plan: Verified ASA Class: II Anesthesia Type: MAC
[2024-12-03] MEDS: LACTATED RINGERS 1000ML 1,000 ML 50 ML IV (11:12)
--- NOTE | 2024-12-03 11:12 | HMH.SCOPE ---
Procedure: Date: 12/03/24 Patient Date of :: 1955 Procedure Performed:: Esophagogastroduodenoscopy with biopsy and dilatation to 15 mm Indications:: Schatzki ring/distal esophageal stricture Performing Provider:: Nico Medina MD Referring Provider:: . Sedation:: Monitored anesthesia care Procedure:: After informed consent was obtained the patient was taken to the endoscopy suite. Sedation ensued after the patient was transferred to the left lateral decubitus position. Pulse, blood pressure, and oxygen saturation were monitored throughout the procedure. The endoscope was advanced beyond the duodenal bulb. Retroflexion within the gastric lumen was accomplished. The gastroscope was carefully removed and the patient was transferred to recovery in stable condition. Please see findings and specimens below for detail. Findings:: Mild persistent focal inflammatory changes in/around gastroesophageal junction Mild gastroesophageal junction stricture (did allow passage of endoscope) Gastroesophageal junction sequentially dilated to 15 mm utilizing pneumatic balloon Specimens:: Antral biopsy Recommendations:: Continue current medications Follow-up pathology Complications:: No immediate Estimated blood obtained (mL): 1 Colonoscopy Component Colonoscopy Component Was a colonoscopy performed during today's procedure?: No
== END 2024-12-03 13:09 | disposition home or self-care (01) ==
PROVIDERS: PCP Internal Medicine; Visit Provider Surgery
PROC: 0DJ08ZZ Inspection of Upper Intestinal Tract, Via Natural or Artificial Opening Endoscopic (ICD-10-PCS; CPT 43239; principal; 2024-12-03 12:00)
DX: K22.2 Esophageal obstruction (principal); K20.90 Esophagitis, unspecified without bleeding
CPT/HCPCS: 43239; 43249; 88305; 88342; C1726; J7120

== ENCOUNTER 2024-12-30 13:32 | Outpatient (CLI) | payer MEDICARE, MEDICAID, SELFPAY ==
--- NOTE | 2024-12-30 13:45 | XR_ITS ---
FINAL REPORT CLINICAL HISTORY: osteoporosis FINDINGS: Using L1-4, the bone mineral density of the spine is 1.313 g/cm2, corresponding to T-score of 2.0 which is within the normal range. Using the left hip, the bone mineral density of the femoral neck is 0.689 g/cm2, corresponding to a T-score of -1.8 which is within the range of osteopenia. Using the right hip, the bone mineral density of the femoral neck is 0.687 g/cm2, corresponding to a T-score of -1.8 which is within the range of osteopenia. IMPRESSION: Bone mineral density of the lumbar spine is within the normal range. Bone mineral density of the bilateral femoral necks is within the range of osteopenia. NOTE: T-score: Standard deviation compared with peak bone mass of young adult mean. *Following the recommendations of the International Society of Bone densitometry, classification of hip BMD is based on the lower of two T-scores; total hip or femoral neck. Reviewed, Interpreted and Dictated by Lizette Robertson MD Transcribed by Jamilah Carlisle Authenticated and [facility]
== END 2024-12-30 23:59 | disposition home or self-care (01) ==
LOC: RAD 13:33
PROVIDERS: PCP Nurse Practitioner Family; Visit Provider Nurse Practitioner Family
DX: M81.0 Age-related osteoporosis without current pathological fracture (principal)
CPT/HCPCS: 77080

== ENCOUNTER 2025-02-26 14:01 | Outpatient (CLI) | payer MEDICARE, MEDICAID, SELFPAY ==
[2025-02-26 14:31] LABS: Basophils # 0.1 K/mm3 (0-0.2); Basophils % 0.8 % (0.1-2.0); Eosinophils # 0.4 Kmm3 (0.0-0.4); Eosinophils % 4.8 % (0.1-12.0); Hemoglobin 14.1 g/dL (14.1-18.0); Immature Granulocytes # 0.02 10^3uL; Immature Granulocytes % 0.2 %; Lymphocytes # 1.8 K/mm3 (0.7-4.5); Lymphocytes % 20.8 % (10-50); Mean Corpuscular Hemoglobin 29.9 pg (27.0-31.2); Mean Corpuscular Volume 93.4 fl (80-94); Mean Platelet Volume 10.8 fl (7.4-10.4); Monocytes # 0.6 K/mm3 (0.1-1.0); Neutrophils # 5.7 K/mm3 (1.8-7.8); Neutrophils % 66.4 % (37.0-80.0); Nucleated Red Blood Cells # 0 10^3/uL; Nucleated Red Blood Cells % 0 %; Platelet Count 272 K/mm3 (142-424); Red Blood Count 4.71 M/mm3 (4.60-6.20); Red Cell Distribution Width 11.5 % (11.5-17.5); Red Cell Distribution Width-SD 39.7 fL; White Blood Count 8.6 K/mm3 (4.8-10.8)
[2025-02-26 14:50] LABS: Alanine Aminotransferase 29 U/L (12-78); Albumin Level 4.4 g/dl (3.5-5.0); Albumin/Globulin Ratio 1.9 (1.1-1.8); Alkaline Phosphatase 59 U/L (38-126); Anion Gap 6.3 mEq/L (5-15); Aspartate Amino Transferase 27 U/L (17-59); Bilirubin,Total 0.4 mg/dl (0.2-1.3); Blood Urea Nitrogen 16 mg/dl (9-20); Calcium 10.4 mg/dl (8.4-10.2); Carbon Dioxide 31 mmol/L (22.0-30.0); Chloride 105 mmol/L (98-107); Chol/HDL Ratio 3.2 (1-3.5); Cholesterol 140 mg/dl (140-200); Estimated Glomerular Filt Rate 66 ml/min (>60); GFR (African American) 80 ML/MIN (>60); Globulin 2.3 g/dL (1.3-3.2); Glucose 102 mg/dl (74-100); HDL Cholesterol 44 mg/dl (40-60); Potassium 4.3 mmoL/L (3.5-5.1); Sodium 138 mmol/L (136-145); Total Protein,Serum 6.7 g/dl (6.3-8.2); Triglycerides 129 mg/dl (30-150); VLDL Cholesterol 26 mg/dL (0-40)
[2025-02-26 15:01] LABS: Direct LDL Cholesterol 72.09 mg/dL (100-129)
[2025-02-26 15:06] LABS: 25-OH Vitamin D, Total 60.4 ng/mL (30-100)
[2025-02-26 15:21] LABS: Thyroid Stimulating Hormone 3.09 uIU/mL (0.465-4.68)
[2025-02-26 18:30] LABS: Hemoglobin A1C 5.4 % (4.0-6.0)
== END 2025-02-26 23:59 | disposition home or self-care (01) ==
LOC: LAB 14:02
PROVIDERS: PCP Nurse Practitioner Family; Visit Provider Nurse Practitioner Family
DX: M81.0 Age-related osteoporosis without current pathological fracture (principal)
CPT/HCPCS: 36415; 80053; 80061; 82306; 83036; 84443; 85025

== ENCOUNTER 2025-07-22 07:53 | Day surgery (SDC) | payer MEDICARE, MEDICAID, SELFPAY ==
[2025-07-22] VITALS (8 sets, daily range): BP systolic 115–131; BP diastolic 74–83; PULSE 69–81; RESP 16–18; TEMP 36.3; O2SAT 97–98
[2025-07-22] MEDS: PHENYLEPHRINE 2.5% OPHTH SOLN 2ML OP ×3 (09:00→09:10)
[2025-07-22] MEDS: CYCLOPENTOLATE 2% OPHTH SOLN 2ML BOTTLE OP ×3 (09:00→09:10)
[2025-07-22] MEDS: TETRACAINE 0.5% OPTH SOL 15ML OP ×3 (09:00→09:11)
[2025-07-22] MEDS: LIDOCAINE 1% PF 2ML VIAL 2 ML IJ (10:25)
[2025-07-22] MEDS: MIDAZOLAM 2MG/2ML VIAL 1 MG IV (10:25)
[2025-07-22] MEDS: TRI-MOXI 15MG/1MG/ML 1ML OPHTH VIAL 1 ML OP (10:25)
[2025-07-22] MEDS: TIMOLOL 0.5% OPTH SOLN 5ML OP (10:26)
--- NOTE | 2025-07-22 12:17 | P.PCN_ITS ---
[facility] Procedure Note Date: 07/22/25 Time: 12:17 Procedure Note:: Preoperative Diagnosis: Cataract combined NS Cortical Complex [Right] Eye Postop diagnosis: same Operation: Microscopic phacoemulsification with intraocular lens implant [Right] Eye Specimen: None Blood Loss: None The patient was examined in the office with a complaint of poor vision in the [right] eye. The patient reports that this interferes with ADLs such as reading, watching TV and/or driving or the vision is like looking through a foggy haze and is very troubling. The patient was examined and found to have a visually significant cataract with best corrected vision of [20/400] by refraction and/or glare testing. Treatment options, risks and benefits were explained and the patient elected to have cataract surgery in an attempt to improve their vision. The patient had the eye anesthetized with topical tetracaine, the eye ways prepped and draped in the usual fashion for cataract surgery. A paracentesis and a temporal keratotomy were made. 0.2cc of 1% lidocaine PF was placed into the anterior chamber. And aqueous/viscoelastic exchange was done and a 360 degree capsulorexis was performed. Through hydrodissection and delineation with BSS on a cannula was done. The lens nucleus was phecoemulsified with CDE of [44.38]. Residual cortical material was removed using automated I&A The capsular bag was deepened with viscoelastica and a PCIOL was placed in the capsular bag with good centration and stability. Residual viscoelastic was removed using automated I&A. The keratotomy incision was hydrated with BSS on a cannula. The wound were checked and found to be water tight. IOP was checked digitally and adjusted as needed so as not to be too high. 1 drop of timolol 0.5%, ofloxacin, prednisolone acetate and ketorolac was instilled and eye shield taped over the eye. The patient was taken to recovery in good condition and will be seen postoperatively. Addendum: Very dense cataract with very poor red reflex. Used vision blue to safely perform the capsulorhexsis.
== END 2025-07-22 11:10 | disposition home or self-care (01) ==
PROVIDERS: PCP Nurse Practitioner Family; Visit Provider Ophthalmology
DX: H25.811 Combined forms of age-related cataract, right eye (principal); H02.836 Dermatochalasis of left eye, unspecified eyelid; H02.833 Dermatochalasis of right eye, unspecified eyelid; J45.909 Unspecified asthma, uncomplicated; G47.00 Insomnia, unspecified; F17.210 Nicotine dependence, cigarettes, uncomplicated; Z79.51 Long term (current) use of inhaled steroids; Z79.899 Other long term (current) drug therapy
CPT/HCPCS: 66982; J2250; V2632

== ENCOUNTER 2025-08-19 07:15 | Day surgery (SDC) | payer MEDICARE, MEDICAID, SELFPAY ==
[2025-08-14 14:28] VITALS: BMI 21.9
[2025-08-19] VITALS (8 sets, daily range): BP systolic 113–136; BP diastolic 71–78; PULSE 73–91; RESP 16–18; TEMP 36.6–36.8; O2SAT 93–98
[2025-08-19] MEDS: PHENYLEPHRINE 2.5% OPHTH SOLN 2ML OP ×3 (07:30→07:40)
[2025-08-19] MEDS: TETRACAINE 0.5% OPTH SOL 15ML OP ×4 (07:30→07:50)
[2025-08-19] MEDS: CYCLOPENTOLATE 2% OPHTH SOLN 2ML BOTTLE OP ×3 (07:30→07:40)
[2025-08-19] MEDS: TIMOLOL 0.5% OPTH SOLN 5ML OP (09:13)
[2025-08-19] MEDS: MIDAZOLAM 2MG/2ML VIAL 1 MG IV (09:13)
[2025-08-19] MEDS: LIDOCAINE 1% PF 2ML VIAL 2 ML IJ (09:14)
[2025-08-19] MEDS: TRI-MOXI 15MG/1MG/ML 1ML OPHTH VIAL 1 ML OP (09:15)
--- NOTE | 2025-08-19 13:11 | P.PCN_ITS ---
[facility] Procedure Note Date: 08/19/25 Time: 13:11 Procedure Note:: Preoperative Diagnosis: [id number] cataract combined NS Cortical Complex [Left] Eye Postop diagnosis: same Operation: Microscopic phacoemulsification with intraocular lens implant [Left] Eye Specimen: None Blood Loss: None The patient was examined in the office with a complaint of poor vision in the [left] eye. The patient reports that this interferes with ADLs such as reading, watching TV and/or driving or the vision is like looking through a foggy haze and is very troubling. The patient was examined and found to have a visually significant cataract with best corrected vision of [20/400] by refraction and/or glare testing. Treatment options, risks and benefits were explained and the patient elected to have cataract surgery in an attempt to improve their vision. The patient had the eye anesthetized with topical tetracaine, the eye ways prepped and draped in the usual fashion for cataract surgery. A paracentesis and a temporal keratotomy were made. 0.2cc of 1% lidocaine PF was placed into the anterior chamber. Vision blue was instilled into the eye to stain the anterior capsule, allowed to remain for 20 seconds and then aspirated out. And aqueous/viscoelastic exchange was done and a 360 degree capsulorexis was performed. Through hydrodissection and delineation with BSS on a cannula was done. The lens nucleus was phecoemulsified with CDE of [31.31]. Residual cortical material was removed using automated I&A The capsular bag was deepened with viscoelastica and a PCIOL was placed in the capsular bag with good centration and stability. Residual viscoelastic was removed using automated I&A. The keratotomy incision was hydrated with BSS on a cannula. The wound were checked and found to be water tight. IOP was checked digitally and adjusted as needed so as not to be too high. 1 drop of timolol 0.5%, ofloxacin, prednisolone acetate and ketorolac was instilled and eye shield taped over the eye. The patient was taken to recovery in good condition and will be seen postoperatively.
== END 2025-08-19 09:47 | disposition home or self-care (01) ==
PROVIDERS: PCP Nurse Practitioner Family; Visit Provider Ophthalmology
DX: H25.811 Combined forms of age-related cataract, right eye (principal); Z90.49 Acquired absence of other specified parts of digestive tract; F17.210 Nicotine dependence, cigarettes, uncomplicated; Z79.899 Other long term (current) drug therapy; G47.30 Sleep apnea, unspecified
CPT/HCPCS: 66984; J2250; V2632

== ENCOUNTER 2025-08-26 06:22 | Day surgery (SDC) | payer MEDICARE, MEDICAID, SELFPAY ==
[2025-08-26 06:36] VITALS: BP 138/87; PULSE 83; RESP 18; TEMP 36.6; O2SAT 94; BMI 21.9
[2025-08-26] MEDS: LACTATED RINGERS 1000ML 1,000 ML 50 ML IV (06:53)
--- NOTE | 2025-08-26 06:55 | P.HP_ITS ---
HPI HPI HPI: This is a 70-year-old gentleman who presents for repeat esophagogastroduodenoscopy for dilatation. He has a known benign GE junction stricture and has undergone multiple dilations dating back to 2018. Most recent dilation on December 03 2024 to 15 mm noted. Prior dilations as follows: June 11 2024 to 15 mm October 04 2022 to 15 mm March 15 2022 to 15 mm (combined/prior on February 09 2022 to 12 mm noted) March 18 2021 to 15 mm June 18, 2020 to 15 mm (combined/prior on May 28, 2020 to 13.5 mm noted) March 27 2019 to 15 mm (2 separate combine/prior on March 07 and February 21 2029 to 12 mm noted) Over the past few months he has noted increasing dysphagia and states that he just know(s) it is time to dilate again . More aggressive dilatations beyond 15 mm have been discussed with the patient. He wishes to keep doing what we have been doing [facility] Disclaimer: The information contained in this section may have been updated after the patient was seen, as this information can be updated by other users. Medical History Asthma Difficulty in swallowing Surgical History History of colonoscopy History of esophagogastroduodenoscopy (EGD) History of cholecystectomy Family History Other Family history of diabetes mellitus type II Family history of hyperlipidemia Family history of hypertension Social History (Updated 08/26/25 @ 06:45 by Jessica Beltran RN) Smoking Status: Current every day smoker tobacco type: cigarettes packs per day: 1 (2pks /week) pack-years: 10 second hand exposure: No alcohol intake: former substance use type: denies use current occupational status: retired Travel in the last 8 weeks?: None household members: none housing: house lives independently: Yes marital status: single education level: high school current occupational exposures/hazards: No caffeine: Yes special kelsey needs: No agree to transfusion: No do you feel safe at home: Yes victim of physical abuse: No victim of emotional abuse: No victim of sexual abuse: No would you like helpful sources: No Have you lived/traveled outside US in past 30 days?: No Contact w/someone who lives/traveled outside US past 30 days?: No Exposure to someone with infectious disease in past 14 days?: No Do you have a fever (greater than 100.4 F or 38 C)?: No Have you tested positive for COVID-19?: No Exposed to someone with COVID-19 in past 14 days?: No Do you have a sore throat?: No Do you have a cough?: No Do you have any weakness?: No Are you experiencing any nausea/vomitting?: No Do you have any diarrhea?: No Are you experiencing any unusual bleeding?: No Do you have any muscle aches/pain?: No Do you have any abdominal pain?: No Are you experiencing loss of taste or smell?: No Other Medical History Have you received the Flu Vaccine for this season: No Have you received the Pneumonia Vaccine: Yes Review of Systems Review of Systems Review of systems:: pertinent systems reviewed and negative unless documented below *Gastrointestinal Gastrointestinal: Reports as per [facility] Meds Home Medications and Allergies Home Medications ?Medication ?Instructions ?Recorded ?Confirmed ?Type albuterol sulfate 90 mcg/actuation 2 puff inhalation Q 6H PRN 03/11/25 08/26/25 Rx aerosol inhaler (Ventolin HFA) shortness of breath or wheezing #18 grams calcium 500 mg (as 1 tab PO BID #180 tabs 05/0108/26/25 Rx carbonate)-vitamin D3 5 mcg (200 unit) tablet doxepin 100 mg capsule See Rx Instructions .Route 1 08/26/25 Rx .COMPLEX #90 caps omeprazole 40 mg capsule,delayed 40 mg PO DAILY PRN Re flux/Acid 07/01/25 08/26/25 Rx release reflux #90 caps hydrocodone 5 mg-acetaminophen 325 1 tab PO TID PRN Pa in #90 tabs 07/15/25 08/26/25 Rx mg tablet fluticasone furoate 100 1 ea inhalation DAILY allerg ies 08/26/25 08/26/25 History mcg-vilanterol 25 mcg/dose inhalation powder (Breo Ellipta) New Prescriptions to Start Prescriptions: Allergies Allergy/AdvReac Type Severity Reaction Status Date / Time No Known Allergies Allergy Verified 08/26/25 06:36 Exam Data for Last 24 hours Vital signs and Labs for Last 24 Hours: Temp Pulse Resp BP Pulse Ox O2 Del Method 97.9 F 83 18 138/87 94 L Room Air 08/26/25 06:36 08/26/25 06:36 08/26/25 06:36 08/26/25 06:36 08/26/25 06:36 08/26/25 06:36 I & O for Last 24 hours: Intake & Output 08/23/25 08/24/25 08/25/25 08/26/25 11:59 11:59 11:59 11:59 Weight 175 lb Constitutional Constitutional: no acute distress *Routine HEENT Exam Head: Present normocephalic Eye: Present EOMI ENT: Present mucous membranes moist *Routine Neck Exam Neck: Present full ROM *Routine Respiratory Exam Respiratory: Absent respiratory distress *Routine Cardiovascular Exam Cardiovascular: Absent tachycardia *Routine Abdominal Exam Abdominal: Present soft *Routine Rectal Exam Rectal:: deferred *Routine Genitalia Exam Genitalia:: deferred *Routine Extremities Exam Extremities: Present full ROM *Routine Skin Exam Skin: Absent erythema *Routine Neurological Exam Neurological: Present alert Assessment and Plan *Assessment and plan (1) Schatzki's ring: Status: Acute Category: Medical Code(s): K22.2 - Esophageal obstruction (2) Difficulty in swallowing: Status: Chronic Qualifiers: Dysphagia type: esophageal phase Qualified Code(s): R13.10 - Dysphagia, unspecified Category: Medical Code(s): R13.10 - Dysphagia, unspecified Plan Repeat EGD with likely dilatation today I have discussed the risks and benefits including, but not limited to: Bleeding Infection Damage to surrounding tissue Inherent risks of sedation The patient agrees to proceed.
--- NOTE | 2025-08-26 07:02 | HMH.SCOPE ---
Procedure: Date: 08/26/25 Patient Date of :: 1955 Procedure Performed:: Esophagogastroduodenoscopy with biopsy and pneumatic dilatation to 15 mm Indications:: Schatzki ring/distal esophageal stricture Performing Provider:: Nico Medina MD Referring Provider:: . Sedation:: Monitored anesthesia care Procedure:: After informed consent was obtained the patient was taken to the endoscopy suite. Sedation ensued after the patient was transferred to the left lateral decubitus position. Pulse, blood pressure, and oxygen saturation were monitored throughout the procedure. The endoscope was advanced beyond the duodenal bulb. Retroflexion within the gastric lumen was accomplished. The gastroscope was carefully removed and the patient was transferred to recovery in stable condition. Please see findings and specimens below for detail. Findings:: Mild persistent focal inflammatory changes in/around gastroesophageal junction Mild gastroesophageal junction stricture (did allow easy passage of endoscope) Gastroesophageal junction sequentially dilated to 15 mm utilizing pneumatic balloon Specimens:: Antral biopsy Recommendations:: Follow-up pathology Continue proton pump inhibition Complications:: No immediate Estimated blood obtained (mL): 1 Colonoscopy Component Colonoscopy Component Was a colonoscopy performed during today's procedure?: No
--- NOTE | 2025-08-26 07:14 | EXP.ANES.CKL ---
[facility] Disclaimer: The information contained in this section may have been updated after the patient was seen, as this information can be updated by other users. Medical History Asthma Difficulty in swallowing Surgical History History of colonoscopy History of esophagogastroduodenoscopy (EGD) History of cholecystectomy Family History Other Family history of diabetes mellitus type II Family history of hyperlipidemia Family history of hypertension Social History (Updated 08/26/25 @ 06:45 by Jessica Beltran RN) Smoking Status: Current every day smoker tobacco type: cigarettes packs per day: 1 (2pks /week) pack-years: 10 second hand exposure: No alcohol intake: former substance use type: denies use current occupational status: retired Travel in the last 8 weeks?: None household members: none housing: house lives independently: Yes marital status: single education level: high school current occupational exposures/hazards: No caffeine: Yes special kelsey needs: No agree to transfusion: No do you feel safe at home: Yes victim of physical abuse: No victim of emotional abuse: No victim of sexual abuse: No would you like helpful sources: No Have you lived/traveled outside [place] in past 30 days?: No Contact w/someone who lives/traveled outside [place] past 30 days?: No Exposure to someone with infectious disease in past 14 days?: No Do you have a fever (greater than 100.4 F or 38 C)?: No Have you tested positive for COVID-19?: No Exposed to someone with COVID-19 in past 14 days?: No Do you have a sore throat?: No Do you have a cough?: No Do you have any weakness?: No Are you experiencing any nausea/vomitting?: No Do you have any diarrhea?: No Are you experiencing any unusual bleeding?: No Do you have any muscle aches/pain?: No Do you have any abdominal pain?: No Are you experiencing loss of taste or smell?: No [facility] Anesthesia Checklist Patient Identification Patient Identification: Arm Band Structural Data Admitted From: Home Planned Operative Procedure/s: EGD Consent for Planned Operative Procedure(s) Verified: Yes Verified Documents: Surgical Consent and History and Physical NPO Status Verified Time NPO: 00:00 Additional verifications Anesthesia Reactions: No Hx Blood Transfusions: No Blood Transfusion Reaction: No Airway Assessment Mallampati Score:: Class II C-Spine Mobility Assessed: Yes TMJ Mobility Assessed: Yes Dentition: Good Dentition Neurological Assessment Level of Consciousness: Awake, Alert and Appropriate Anesthesia Plan Anesthesia Risk discussed: Yes Anesthesia Plan: Verified ASA Class: II Anesthesia Type: MAC
[2025-08-26 07:40] VITALS: BP 98/59; PULSE 79; RESP 16; TEMP 36.2; O2SAT 95
[2025-08-26 07:50] VITALS: BP 95/61; PULSE 71; RESP 16; O2SAT 94
[2025-08-26 08:00] VITALS: BP 102/70; PULSE 69; RESP 16; O2SAT 95
[2025-08-26 08:10] VITALS: BP 105/68; PULSE 70; RESP 16; O2SAT 95
== END 2025-08-26 08:10 | disposition home or self-care (01) ==
PROVIDERS: PCP Nurse Practitioner Family; Visit Provider Surgery
PROC: 0DJ08ZZ Inspection of Upper Intestinal Tract, Via Natural or Artificial Opening Endoscopic (ICD-10-PCS; CPT 43239; principal; 2025-08-26 07:30)
DX: K22.2 Esophageal obstruction (principal); K31.89 Other diseases of stomach and duodenum; F17.210 Nicotine dependence, cigarettes, uncomplicated; Z90.49 Acquired absence of other specified parts of digestive tract
CPT/HCPCS: 43239; 43249; 88305; C1726; J2003; J2704; J7120